=== PATIENT | male | born 1950 | race Caucasian/White ===

== ENCOUNTER 2020-06-23 06:57 | Outpatient (REF) | payer MEDICARE, SELFPAY ==
[2020-06-23 11:58] LABS: Anion Gap 12 (12-20); Blood Urea Nitrogen 16 mg/dL (9-16); Carbon Dioxide 27 mmol/L (22-29); Chloride 102 mmol/L (96-108); Estimated Glomerular Filt Rate 53; Potassium 3.9 mmol/l (3.3-5.1); Sodium 137 mmol/L (135-145)
[2020-06-23 12:57] LABS: Creatinine Urine 61.06 mg/dL; Protein/Creatinine Ratio, Ur 0.28 (<0.2); Total Protein Urine Random 17 mg/dL (<12)
== END 2020-06-23 06:58 | disposition home or self-care (01) ==
LOC: HO.HMGCLDS 06:57
PROVIDERS: PCP Internal Medicine; Visit Provider Internal Medicine Hypertension Specialist
DX: I12.9 Hypertensive chronic kidney disease with stage 1 through stage 4 chronic kidney disease, or unspecified chronic kidney disease (principal); N18.30 Chronic kidney disease, stage 3 unspecified
CPT/HCPCS: 36415; 80051; 82565; 84156; 84520

== ENCOUNTER 2020-08-11 10:40 | Outpatient (REF) | payer MEDICARE, SELFPAY ==
[2020-08-11 14:03] LABS: MANUAL DIFF FLAG NO
[2020-08-11 14:17] LABS: Basophils Absolute Auto 0.1 X10*3/uL (0.0-0.2); Basophils Percent Auto 1.1 % (0-2); Eosinophils Absolute Auto 0.3 X10*3/uL (0.0-0.4); Eosinophils Percent Auto 3.9 % (0-4); Hematocrit 39.8 % (42-52); Hemoglobin 13.2 g/dl (14.0-18.0); Imm Gran Abs Auto 0.02 X10*3/uL (0.00-0.03); Imm Gran Pct Auto 0.2 % (0.0-0.4); Lymphocytes Absolute Auto 1.5 X10*3/uL (1.2-4.9); Lymphocytes Percent Auto 18.8 % (20-40); Mean Corpuscular HGB Conc 33.2 g/dl (31.0-36.0); Mean Corpuscular Hemoglobin 31.1 pg (27.0-33.0); Mean Corpuscular Volume 93.6 fL (80-98); Monocytes Absolute Auto 0.8 X10*3/uL (0.1-1.2); Monocytes Percent Auto 9.2 % (2-11); Neutrophils Absolute Auto 5.5 X10*3/uL (2.0-8.3); Neutrophils Percent Auto 66.8 % (45-73); Platelet Count 212 X10*3/uL (160-400); Red Blood Count 4.25 X10*6/uL (4.60-5.80); Red Cell Distribution Width 13.2 % (11.0-16.0); White Blood Count 8.2 X10*3/uL (4.8-10.8)
[2020-08-11 14:54] LABS: Alanine Aminotransferase 33 U/L (0-40); Alkaline Phosphatase 60 U/L (39-117); Anion Gap 15 (12-20); Aspartate Amino Transferase 41 U/L (5-37); Blood Urea Nitrogen 16 mg/dL (9-16); Calcium 8.8 mg/dL (8.4-10.2); Carbon Dioxide 27 mmol/L (22-29); Chloride 102 mmol/L (96-108); Estimated Glomerular Filt Rate 44; Glucose Random 109 mg/dL (60-115); Potassium 4.9 mmol/l (3.3-5.1); Sodium 139 mmol/L (135-145)
[2020-08-11 15:01] LABS: Free T4 (Free Thyroxine) 1.18 ng/dL (0.71-1.85)
== END 2020-08-11 10:41 | disposition home or self-care (01) ==
LOC: HO.10HDL 10:40
PROVIDERS: Visit Provider Internal Medicine
DX: I12.9 Hypertensive chronic kidney disease with stage 1 through stage 4 chronic kidney disease, or unspecified chronic kidney disease (principal); N18.9 Chronic kidney disease, unspecified; E03.9 Hypothyroidism, unspecified
CPT/HCPCS: 36415; 80053; 84439; 84443; 85025

== ENCOUNTER 2021-03-14 06:03 | Outpatient (REF) | payer MEDICARE, SELFPAY ==
[2021-03-14 11:16] LABS: MANUAL DIFF FLAG NO
[2021-03-14 11:37] LABS: Basophils Absolute Auto 0.1 X10*3/uL (0.0-0.2); Basophils Percent Auto 0.8 % (0-2); Eosinophils Absolute Auto 0.3 X10*3/uL (0.0-0.4); Eosinophils Percent Auto 3.9 % (0-4); Hematocrit 38.7 % (42-52); Hemoglobin 12.9 g/dl (14.0-18.0); Imm Gran Abs Auto 0.03 X10*3/uL (0.00-0.03); Imm Gran Pct Auto 0.4 % (0.0-0.4); Lymphocytes Absolute Auto 1.6 X10*3/uL (1.2-4.9); Lymphocytes Percent Auto 22.7 % (20-40); Mean Corpuscular HGB Conc 33.3 g/dl (31.0-36.0); Mean Corpuscular Hemoglobin 31.7 pg (27.0-33.0); Mean Corpuscular Volume 95.1 fL (80-98); Mean Platelet Volume 10.7 fL (9.4-12.4); Monocytes Absolute Auto 0.8 X10*3/uL (0.1-1.2); Monocytes Percent Auto 11.2 % (2-11); Neutrophils Absolute Auto 4.4 X10*3/uL (2.0-8.3); Platelet Count 214 X10*3/uL (160-400); Red Blood Count 4.07 X10*6/uL (4.60-5.80); Red Cell Distribution Width 13.3 % (11.0-16.0); White Blood Count 7.1 X10*3/uL (4.8-10.8)
[2021-03-14 11:50] LABS: Alanine Aminotransferase 26 U/L (0-40); Albumin Level 4.1 g/dL (3.5-5.0); Alkaline Phosphatase 68 U/L (39-117); Anion Gap 13 (12-20); Aspartate Amino Transferase 41 U/L (5-37); Bilirubin Total 0.8 mg/dL (0.0-1.0); Blood Urea Nitrogen 11 mg/dL (9-16); Calcium 8.9 mg/dL (8.4-10.2); Carbon Dioxide 25 mmol/L (22-29); Chloride 103 mmol/L (96-108); Cholesterol 125 mg/dL; Estimated Glomerular Filt Rate 57; Glucose Fasting 90 mg/dL (60-99); HDL Cholesterol 48 mg/dL; Iron 85 mcg/dL (45-160); LDL Cholesterol Calculated 44 mg/dl; Percent Iron Saturation 28 % (15-50); Potassium 4.1 mmol/L (3.3-5.1); Sodium 137 mmol/L (135-145); Total Iron Binding Capacity 308 mcg/dL (228-428); Total Protein 6.9 g/dL (6.5-8.0); Triglycerides 168 mg/dL; Unsaturated Iron Binding 223 ug/dL
[2021-03-14 12:11] LABS: Free T4 (Free Thyroxine) 1.14 ng/dL (0.71-1.85); Thyroid Stimulating Hormone 5.95 uIU/mL (0.32-4.0)
== END 2021-03-14 06:04 | disposition home or self-care (01) ==
LOC: HO.HMGCLDS 06:03
PROVIDERS: PCP Internal Medicine; Visit Provider Internal Medicine
DX: D64.9 Anemia, unspecified (principal); I12.9 Hypertensive chronic kidney disease with stage 1 through stage 4 chronic kidney disease, or unspecified chronic kidney disease; N18.9 Chronic kidney disease, unspecified; E03.9 Hypothyroidism, unspecified; E78.00 Pure hypercholesterolemia, unspecified
CPT/HCPCS: 36415; 80053; 80061; 83540; 84439; 84443; 85025

== ENCOUNTER 2021-06-20 10:10 | Outpatient (REF) | payer MEDICARE, SELFPAY ==
[2021-06-20 11:34] LABS: MANUAL DIFF FLAG NO
[2021-06-20 11:41] LABS: Basophils Absolute Auto 0.1 X10*3/uL (0.0-0.2); Basophils Percent Auto 1.4 % (0-2); Eosinophils Absolute Auto 0.3 X10*3/uL (0.0-0.4); Eosinophils Percent Auto 3.4 % (0-4); Hematocrit 37.9 % (42-52); Hemoglobin 12.9 g/dl (14.0-18.0); Imm Gran Abs Auto 0.03 X10*3/uL (0.00-0.03); Imm Gran Pct Auto 0.4 % (0.0-0.4); Lymphocytes Absolute Auto 1.4 X10*3/uL (1.2-4.9); Lymphocytes Percent Auto 19.7 % (20-40); Mean Corpuscular Hemoglobin 31.6 pg (27.0-33.0); Mean Corpuscular Volume 92.9 fL (80-98); Mean Platelet Volume 10.4 fL (9.4-12.4); Monocytes Absolute Auto 0.6 X10*3/uL (0.1-1.2); Monocytes Percent Auto 7.8 % (2-11); Neutrophils Absolute Auto 4.9 X10*3/uL (2.0-8.3); Neutrophils Percent Auto 67.3 % (45-73); Platelet Count 197 X10*3/uL (160-400); Red Blood Count 4.08 X10*6/uL (4.60-5.80); Red Cell Distribution Width 13.1 % (11.0-16.0); White Blood Count 7.3 X10*3/uL (4.8-10.8)
[2021-06-20 12:07] LABS: Anion Gap 15 (12-20); Blood Urea Nitrogen 12 mg/dL (9-16); Calcium 8.7 mg/dL (8.4-10.2); Carbon Dioxide 23 mmol/L (22-29); Chloride 102 mmol/L (96-108); Estimated Glomerular Filt Rate 51; Glucose Random 113 mg/dL (60-115); Potassium 4.6 mmol/L (3.3-5.1); Sodium 135 mmol/L (135-145)
[2021-06-20 12:09] LABS: Anion Gap 14 (12-20); Blood Urea Nitrogen 11 mg/dL (9-16); Calcium 8.9 mg/dL (8.4-10.2); Carbon Dioxide 24 mmol/L (22-29); Chloride 101 mmol/L (96-108); Estimated Glomerular Filt Rate 48; Potassium 4.6 mmol/L (3.3-5.1); Sodium 134 mmol/L (135-145)
[2021-06-20 12:32] LABS: Free T4 (Free Thyroxine) 1.14 ng/dL (0.71-1.85); Thyroid Stimulating Hormone 4.55 uIU/mL (0.32-4.0)
[2021-06-20 14:03] LABS: Appearance Urine CLEAR; Color Urine YELLOW; Glucose Urine UA NEG (NEG); Leukocyte Esterase Urine NEG (NEG); Nitrite Urine NEG (NEG); Urine Blood NEG (NEG); Urine Ketones NEG (NEG); Urine Protein NEG (NEG-TRACE)
== END 2021-06-20 10:11 | disposition home or self-care (01) ==
LOC: HO.HMGCLDS 10:10
PROVIDERS: PCP Internal Medicine; Visit Provider Internal Medicine Hypertension Specialist
DX: I12.9 Hypertensive chronic kidney disease with stage 1 through stage 4 chronic kidney disease, or unspecified chronic kidney disease (principal); N18.30 Chronic kidney disease, stage 3 unspecified; E03.9 Hypothyroidism, unspecified
CPT/HCPCS: 36415; 80048; 80051; 81003; 82310; 82565; 84439; 84443; 84520; 85025

== ENCOUNTER 2021-11-21 06:02 | Outpatient (REF) | payer MEDICARE, SELFPAY ==
[2021-11-21 11:03] LABS: MANUAL DIFF FLAG NO
[2021-11-21 11:10] LABS: Basophils Absolute Auto 0.1 X10*3/uL (0.0-0.2); Basophils Percent Auto 1.2 % (0-2); Eosinophils Absolute Auto 0.3 X10*3/uL (0.0-0.4); Eosinophils Percent Auto 4.6 % (0-4); Imm Gran Abs Auto 0.03 X10*3/uL (0.00-0.03); Imm Gran Pct Auto 0.4 % (0.0-0.4); Lymphocytes Absolute Auto 1.9 X10*3/uL (1.2-4.9); Lymphocytes Percent Auto 26.2 % (20-40); Mean Corpuscular HGB Conc 33.3 g/dl (31.0-36.0); Mean Corpuscular Hemoglobin 31.4 pg (27.0-33.0); Mean Corpuscular Volume 94.2 fL (80.0-98.0); Mean Platelet Volume 10.5 fL (9.4-12.4); Monocytes Absolute Auto 0.7 X10*3/uL (0.1-1.2); Neutrophils Absolute Auto 4.2 x10*3/uL (2.0-8.3); Neutrophils Percent Auto 57.6 % (45-73); Platelet Count 196 X10*3/uL (160-400); Red Blood Count 4.14 X10*6/uL (4.60-5.80); Red Cell Distribution Width 13.3 % (11.0-16.0); White Blood Count 7.4 X10*3/uL (4.8-10.8)
[2021-11-21 11:28] LABS: Estimated Average Glucose 103 mg/dL; Hemoglobin A1C 116.9216 umol/L; Hemoglobin A1c % 5.2 %
[2021-11-21 11:46] LABS: Free T4 (Free Thyroxine) 1.12 ng/dL (0.71-1.85); Thyroid Stimulating Hormone 6.01 uIU/mL (0.32-4.0)
[2021-11-21 12:04] LABS: Alanine Aminotransferase 34 U/L (0-40); Albumin Level 3.9 g/dL (3.5-5.0); Alkaline Phosphatase 54 U/L (39-117); Anion Gap 16 (12-20); Aspartate Amino Transferase 50 U/L (5-37); Bilirubin Total 0.7 mg/dL (0.0-1.0); Blood Urea Nitrogen 16 mg/dL (9-16); Calcium 9.2 mg/dL (8.4-10.2); Carbon Dioxide 23 mmol/L (22-29); Chloride 103 mmol/L (96-108); Estimated Glomerular Filt Rate 50; Glucose Random 97 mg/dL (60-115); Potassium 3.9 mmol/L (3.3-5.1); Sodium 138 mmol/L (135-145)
[2021-11-21 12:14] LABS: Creatinine Urine 63.87 mg/dL; Microalbum/Creatinine Ratio Ur 75.1 ug/mg cr
== END 2021-11-21 06:03 | disposition home or self-care (01) ==
LOC: HO.HMGCLDS 06:02
PROVIDERS: Visit Provider Internal Medicine
DX: I12.9 Hypertensive chronic kidney disease with stage 1 through stage 4 chronic kidney disease, or unspecified chronic kidney disease (principal); N18.9 Chronic kidney disease, unspecified; E11.22 Type 2 diabetes mellitus with diabetic chronic kidney disease; E03.9 Hypothyroidism, unspecified
CPT/HCPCS: 36415; 80053; 82043; 83036; 84439; 84443; 85025

== ENCOUNTER 2022-03-12 12:25 | Outpatient (REF) | payer MEDICARE, SELFPAY ==
[2022-03-12 13:40] LABS: MANUAL DIFF FLAG NO
[2022-03-12 13:54] LABS: Basophils Absolute Auto 0.1 X10*3/uL (0.0-0.2); Basophils Percent Auto 1.4 % (0-2); Eosinophils Absolute Auto 0.3 X10*3/uL (0.0-0.4); Eosinophils Percent Auto 3.9 % (0-4); Hematocrit 39.3 % (42.0-52.0); Imm Gran Abs Auto 0.03 X10*3/uL (0.00-0.03); Imm Gran Pct Auto 0.4 % (0.0-0.4); Lymphocytes Absolute Auto 1.9 X10*3/uL (1.2-4.9); Lymphocytes Percent Auto 22.3 % (20-40); Mean Corpuscular HGB Conc 33.1 g/dl (31.0-36.0); Mean Corpuscular Volume 93.8 fL (80.0-98.0); Mean Platelet Volume 10.4 fL (9.4-12.4); Monocytes Absolute Auto 0.8 X10*3/uL (0.1-1.2); Neutrophils Absolute Auto 5.2 x10*3/uL (2.0-8.3); Platelet Count 219 X10*3/uL (160-400); Red Blood Count 4.19 X10*6/uL (4.60-5.80); Red Cell Distribution Width 13.3 % (11.0-16.0); White Blood Count 8.3 X10*3/uL (4.8-10.8)
[2022-03-12 14:16] LABS: Alanine Aminotransferase 31 U/L (0-40); Albumin Level 3.9 g/dL (3.5-5.0); Alkaline Phosphatase 54 U/L (39-117); Anion Gap 14 (12-20); Aspartate Amino Transferase 45 U/L (5-37); Bilirubin Total 0.7 mg/dL (0.0-1.0); Blood Urea Nitrogen 14 mg/dL (9-16); Calcium 9.2 mg/dL (8.4-10.2); Carbon Dioxide 25 mmol/L (22-29); Chloride 105 mmol/L (96-108); Estimated Glomerular Filt Rate 51; Glucose Random 118 mg/dL (60-115); Iron 118 mcg/dL (45-160); Percent Iron Saturation 35 % (15-50); Sodium 139 mmol/L (135-145); Total Iron Binding Capacity 337 mcg/dL (228-428); Total Protein 7.1 g/dL (6.5-8.0); Unsaturated Iron Binding 219 ug/dL
[2022-03-12 14:39] LABS: Free T4 (Free Thyroxine) 1.18 ng/dL (0.71-1.85); Thyroid Stimulating Hormone 5.23 uIU/mL (0.32-4.0)
== END 2022-03-12 12:26 | disposition home or self-care (01) ==
LOC: HO.HMGCLDS 12:25
PROVIDERS: PCP Internal Medicine; Visit Provider Internal Medicine
DX: I12.9 Hypertensive chronic kidney disease with stage 1 through stage 4 chronic kidney disease, or unspecified chronic kidney disease (principal); N18.9 Chronic kidney disease, unspecified; E03.9 Hypothyroidism, unspecified; D64.9 Anemia, unspecified
CPT/HCPCS: 36415; 80053; 83540; 84439; 84443; 85025

== ENCOUNTER 2022-06-21 06:53 | Outpatient (REF) | payer MEDICARE, SELFPAY ==
[2022-06-21 12:06] LABS: Basophils Absolute Auto 0.1 X10*3/uL (0.0-0.2); Basophils Percent Auto 1.7 % (0-2); Eosinophils Absolute Auto 0.4 X10*3/uL (0.0-0.4); Eosinophils Percent Auto 5.7 % (0-4); Hematocrit 39.4 % (42.0-52.0); Hemoglobin 13.6 g/dl (14.0-18.0); Imm Gran Abs Auto 0.02 X10*3/uL (0.00-0.03); Imm Gran Pct Auto 0.3 % (0.0-0.4); Lymphocytes Absolute Auto 1.8 X10*3/uL (1.2-4.9); Lymphocytes Percent Auto 26.1 % (20-40); MANUAL DIFF FLAG NO; Mean Corpuscular HGB Conc 34.5 g/dl (31.0-36.0); Mean Corpuscular Hemoglobin 32.5 pg (27.0-33.0); Mean Platelet Volume 10.9 fL (9.4-12.4); Monocytes Absolute Auto 0.7 X10*3/uL (0.1-1.2); Monocytes Percent Auto 9.5 % (2-11); Neutrophils Absolute Auto 3.9 x10*3/uL (2.0-8.3); Neutrophils Percent Auto 56.7 % (45-73); Platelet Count 213 X10*3/uL (160-400); Red Blood Count 4.19 X10*6/uL (4.60-5.80); Red Cell Distribution Width 13.3 % (11.0-16.0); White Blood Count 6.9 X10*3/uL (4.8-10.8)
[2022-06-21 12:37] LABS: Alanine Aminotransferase 30 U/L (0-40); Albumin Level 3.9 g/dL (3.5-5.0); Alkaline Phosphatase 70 U/L (39-117); Anion Gap 16 (12-20); Aspartate Amino Transferase 39 U/L (5-37); Bilirubin Total 0.6 mg/dL (0.0-1.0); Blood Urea Nitrogen 13 mg/dL (9-16); Carbon Dioxide 24 mmol/L (22-29); Chloride 103 mmol/L (96-108); Cholesterol 129 mg/dL; Estimated Glomerular Filt Rate 53; Glucose Fasting 97 mg/dL (60-99); HDL Cholesterol 44 mg/dL; LDL Cholesterol Calculated 56 mg/dl; Sodium 139 mmol/L (135-145); Total Protein 6.9 g/dL (6.5-8.0); Triglycerides 145 mg/dL
[2022-06-21 12:37] LABS: Creatinine Urine 115.98 mg/dL; Microalbum/Creatinine Ratio Ur 16.3 ug/mg cr
[2022-06-21 12:50] LABS: Free T4 (Free Thyroxine) 1.25 ng/dL (0.71-1.85); Prostate Specific Antigen Scr 0.24 ng/mL (<0.05-4.0); Thyroid Stimulating Hormone 6.42 uIU/mL (0.32-4.0)
[2022-06-21 12:51] LABS: Estimated Average Glucose 105 mg/dL; Hemoglobin A1c % 5.3 %
== END 2022-06-21 06:54 | disposition home or self-care (01) ==
LOC: HO.HMGCLDS 06:53
PROVIDERS: PCP Internal Medicine; Visit Provider Internal Medicine
DX: Z12.5 Encounter for screening for malignant neoplasm of prostate (principal); I42.9 Cardiomyopathy, unspecified; I12.9 Hypertensive chronic kidney disease with stage 1 through stage 4 chronic kidney disease, or unspecified chronic kidney disease; E11.22 Type 2 diabetes mellitus with diabetic chronic kidney disease; N18.9 Chronic kidney disease, unspecified; E03.9 Hypothyroidism, unspecified; E78.00 Pure hypercholesterolemia, unspecified
CPT/HCPCS: 36415; 80053; 80061; 82043; 83036; 84153; 84439; 84443; 85025

== ENCOUNTER 2022-06-27 11:50 | Outpatient (REF) | payer MEDICARE, SELFPAY ==
[2022-06-27 12:46] LABS: Influenza A PCR NEGATIVE (Negative); Influenza B PCR NEGATIVE (Negative); Resp Syncy Virus RNA Qual PCR NEGATIVE (Negative); SARS COV2 PCR INHOUSE NEGATIVE (Negative)
== END 2022-06-27 11:51 | disposition home or self-care (01) ==
LOC: HO.LNP 11:50
PROVIDERS: Visit Provider Internal Medicine
DX: R05.9 Cough, unspecified (principal); Z20.822 Contact with and (suspected) exposure to COVID-19
CPT/HCPCS: 0241U

== ENCOUNTER 2022-11-25 06:02 | Outpatient (REF) | payer MEDICARE, SELFPAY ==
[2022-11-25 11:35] LABS: MANUAL DIFF FLAG NO
[2022-11-25 11:50] LABS: Appearance Urine Clear; Color Urine Yellow; Glucose Urine UA Negative (Negative); Leukocyte Esterase Urine Negative (Negative); Nitrite Urine Negative (Negative); PH 5.5 (5.0-9.0); Specific Gravity - Urine <= 1.005 (1.005-1.025); Urine Blood Negative (Negative); Urine Ketones Negative (Negative); Urine Protein Negative (Neg-Trace)
[2022-11-25 11:58] LABS: Basophils Absolute Auto 0.1 X10*3/uL (0.0-0.2); Basophils Percent Auto 1.6 % (0-2); Eosinophils Absolute Auto 0.4 X10*3/uL (0.0-0.4); Eosinophils Percent Auto 5.8 % (0-4); Hematocrit 39.3 % (42.0-52.0); Hemoglobin 13.2 g/dl (14.0-18.0); Imm Gran Abs Auto 0.03 X10*3/uL (0.00-0.03); Imm Gran Pct Auto 0.4 % (0.0-0.4); Lymphocytes Absolute Auto 1.9 X10*3/uL (1.2-4.9); Lymphocytes Percent Auto 26.8 % (20-40); Mean Corpuscular HGB Conc 33.6 g/dl (31.0-36.0); Mean Corpuscular Hemoglobin 31.4 pg (27.0-33.0); Mean Corpuscular Volume 93.6 fL (80.0-98.0); Mean Platelet Volume 10.7 fL (9.4-12.4); Monocytes Absolute Auto 0.6 X10*3/uL (0.1-1.2); Monocytes Percent Auto 8.9 % (2-11); Neutrophils Percent Auto 56.5 % (45-73); Platelet Count 203 X10*3/uL (160-400); Red Cell Distribution Width 13.5 % (11.0-16.0); White Blood Count 7.1 X10*3/uL (4.8-10.8)
[2022-11-25 12:05] LABS: Estimated Average Glucose 108 mg/dL; Hemoglobin A1c % 5.4 %
[2022-11-25 12:19] LABS: Alanine Aminotransferase 27 U/L (0-40); Albumin Level 3.8 g/dL (3.5-5.0); Alkaline Phosphatase 65 U/L (39-117); Anion Gap 13 (12-20); Aspartate Amino Transferase 46 U/L (5-37); Bilirubin Total 0.9 mg/dL (0.0-1.0); Blood Urea Nitrogen 11 mg/dL (9-16); Calcium 8.8 mg/dL (8.4-10.2); Carbon Dioxide 26 mmol/L (22-29); Chloride 104 mmol/L (96-108); Cholesterol 140 mg/dL; Estimated Glomerular Filt Rate 56; Glucose Fasting 99 mg/dL (60-99); HDL Cholesterol 48 mg/dL; LDL Cholesterol Calculated 54 mg/dl; Sodium 139 mmol/L (135-145); Total Protein 6.8 g/dL (6.5-8.0); Triglycerides 190 mg/dL
[2022-11-25 12:24] LABS: Creatinine Urine 98.96 mg/dL; Microalbum/Creatinine Ratio Ur 19.1 ug/mg cr
[2022-11-25 12:38] LABS: Free T4 (Free Thyroxine) 1.14 ng/dL (0.71-1.85); Prostate Specific Antigen 0.36 ng/mL (<0.05-4.0); Thyroid Stimulating Hormone 5.99 uIU/mL (0.32-4.0)
== END 2022-11-25 06:03 | disposition home or self-care (01) ==
LOC: HO.HMGCLDS 06:02
PROVIDERS: PCP Internal Medicine; Visit Provider Internal Medicine
DX: Z12.5 Encounter for screening for malignant neoplasm of prostate (principal); E03.9 Hypothyroidism, unspecified; E78.00 Pure hypercholesterolemia, unspecified; N40.0 Benign prostatic hyperplasia without lower urinary tract symptoms; I12.9 Hypertensive chronic kidney disease with stage 1 through stage 4 chronic kidney disease, or unspecified chronic kidney disease; N18.9 Chronic kidney disease, unspecified; R73.03 Prediabetes
CPT/HCPCS: 36415; 80053; 80061; 81003; 82043; 83036; 84153; 84439; 84443; 85025

== ENCOUNTER 2023-03-19 08:43 | Outpatient (REF) | payer MEDICARE, SELFPAY ==
[2023-03-19 11:16] LABS: MANUAL DIFF FLAG NO
[2023-03-19 11:25] LABS: Basophils Absolute Auto 0.1 X10*3/uL (0.0-0.2); Basophils Percent Auto 1.4 % (0-2); Eosinophils Absolute Auto 0.4 X10*3/uL (0.0-0.4); Eosinophils Percent Auto 5.1 % (0-4); Hematocrit 39.7 % (42.0-52.0); Hemoglobin 13.3 g/dl (14.0-18.0); Imm Gran Abs Auto 0.03 X10*3/uL (0.00-0.03); Imm Gran Pct Auto 0.4 % (0.0-0.4); Lymphocytes Absolute Auto 1.6 X10*3/uL (1.2-4.9); Lymphocytes Percent Auto 20.7 % (20-40); Mean Corpuscular HGB Conc 33.5 g/dl (31.0-36.0); Mean Corpuscular Hemoglobin 31.7 pg (27.0-33.0); Mean Corpuscular Volume 94.7 fL (80.0-98.0); Mean Platelet Volume 10.5 fL (9.4-12.4); Monocytes Absolute Auto 0.7 X10*3/uL (0.1-1.2); Monocytes Percent Auto 9.4 % (2-11); Neutrophils Absolute Auto 4.8 x10*3/uL (2.0-8.3); Platelet Count 185 X10*3/uL (160-400); Red Blood Count 4.19 X10*6/uL (4.60-5.80); Red Cell Distribution Width 13.4 % (11.0-16.0); White Blood Count 7.7 X10*3/uL (4.8-10.8)
[2023-03-19 11:58] LABS: Alanine Aminotransferase 33 U/L (0-40); Albumin Level 3.8 g/dL (3.5-5.0); Alkaline Phosphatase 61 U/L (39-117); Anion Gap 10 (12-20); Aspartate Amino Transferase 54 U/L (5-37); Bilirubin Total 1.1 mg/dL (0.0-1.0); Blood Urea Nitrogen 14 mg/dL (9-16); Calcium 9.4 mg/dL (8.4-10.2); Carbon Dioxide 26 mmol/L (22-29); Chloride 102 mmol/L (96-108); Estimated Glomerular Filt Rate 58; Glucose Random 104 mg/dL (60-115); Potassium 4.6 mmol/L (3.3-5.1); Sodium 133 mmol/L (135-145); Total Protein 7.3 g/dL (6.5-8.0)
[2023-03-19 12:04] LABS: Free T4 (Free Thyroxine) 1.22 ng/dL (0.71-1.85); Thyroid Stimulating Hormone 5.46 uIU/mL (0.32-4.0)
== END 2023-03-19 08:44 | disposition home or self-care (01) ==
LOC: HO.HMGCLDS 08:43
PROVIDERS: PCP Internal Medicine; Visit Provider Internal Medicine
DX: I12.9 Hypertensive chronic kidney disease with stage 1 through stage 4 chronic kidney disease, or unspecified chronic kidney disease (principal); N18.9 Chronic kidney disease, unspecified; E03.9 Hypothyroidism, unspecified
CPT/HCPCS: 36415; 80053; 84439; 84443; 85025

== ENCOUNTER 2023-07-01 10:03 | Outpatient (REF) | payer MEDICARE, SELFPAY ==
[2023-07-01 13:46] LABS: Anion Gap 15 (12-20); Blood Urea Nitrogen 14 mg/dL (9-16); Carbon Dioxide 26 mmol/L (22-29); Chloride 102 mmol/L (96-108); Estimated Glomerular Filt Rate > 60; Glucose Random 120 mg/dL (60-115); Potassium 4.3 mmol/L (3.3-5.1); Sodium 139 mmol/L (135-145)
== END 2023-07-01 10:04 | disposition home or self-care (01) ==
LOC: HO.HMGCLDS 10:03
PROVIDERS: PCP Internal Medicine; Visit Provider Internal Medicine Hypertension Specialist
DX: N18.30 Chronic kidney disease, stage 3 unspecified (principal)
CPT/HCPCS: 36415; 80048

== ENCOUNTER 2023-12-02 07:11 | Outpatient (REF) | payer MEDICARE, SELFPAY ==
[2023-12-02 11:07] LABS: MANUAL DIFF FLAG NO
[2023-12-02 11:37] LABS: Basophils Absolute Auto 0.1 X10*3/uL (0.0-0.2); Basophils Percent Auto 1.3 % (0-2); Eosinophils Absolute Auto 0.5 X10*3/uL (0.0-0.4); Eosinophils Percent Auto 6.7 % (0-4); Hematocrit 40.5 % (42.0-52.0); Hemoglobin 13.5 g/dl (14.0-18.0); Imm Gran Abs Auto 0.03 X10*3/uL (0.00-0.03); Imm Gran Pct Auto 0.4 % (0.0-0.4); Lymphocytes Absolute Auto 1.9 X10*3/uL (1.2-4.9); Mean Corpuscular HGB Conc 33.3 g/dl (31.0-36.0); Mean Corpuscular Hemoglobin 31.6 pg (27.0-33.0); Mean Corpuscular Volume 94.8 fL (80.0-98.0); Mean Platelet Volume 10.9 fL (9.4-12.4); Monocytes Absolute Auto 0.7 X10*3/uL (0.1-1.2); Monocytes Percent Auto 9.1 % (2-11); Neutrophils Absolute Auto 4.2 x10*3/uL (2.0-8.3); Neutrophils Percent Auto 56.5 % (45-73); Platelet Count 218 X10*3/uL (160-400); Red Blood Count 4.27 X10*6/uL (4.60-5.80); Red Cell Distribution Width 13.9 % (11.0-16.0); White Blood Count 7.5 X10*3/uL (4.8-10.8)
[2023-12-02 12:04] LABS: Prostate Specific Antigen 0.29 ng/mL (<0.05-4.0)
[2023-12-02 12:08] LABS: Alanine Aminotransferase 25 U/L (0-40); Albumin Level 3.8 g/dL (3.5-5.0); Alkaline Phosphatase 65 U/L (39-117); Anion Gap 11 (12-20); Aspartate Amino Transferase 37 U/L (5-37); Bilirubin Total 0.7 mg/dL (0.0-1.0); Blood Urea Nitrogen 15 mg/dL (9-16); Calcium 9.3 mg/dL (8.4-10.2); Carbon Dioxide 28 mmol/L (22-29); Chloride 105 mmol/L (96-108); Cholesterol 131 mg/dL (<200); Estimated Glomerular Filt Rate > 60; Glucose Fasting 97 mg/dL (60-99); HDL Cholesterol 55 mg/dL (>40); LDL Cholesterol Calculated 59 mg/dL (<100); Potassium 4.2 mmol/L (3.3-5.1); Sodium 140 mmol/L (135-145); Thyroid Stimulating Hormone 5.43 uIU/mL (0.32-4.0); Total Protein 7.2 g/dL (6.5-8.0); Triglycerides 89 mg/dL (<150)
== END 2023-12-02 07:12 | disposition home or self-care (01) ==
LOC: HO.HMGCLDS 07:11
PROVIDERS: PCP Internal Medicine; Visit Provider Internal Medicine
DX: I10 Essential (primary) hypertension (principal); E78.00 Pure hypercholesterolemia, unspecified; R73.03 Prediabetes; Z12.5 Encounter for screening for malignant neoplasm of prostate
CPT/HCPCS: 36415; 80053; 80061; 84153; 84439; 84443; 85025

== ENCOUNTER → 2024-03-05 12:44 | Outpatient (REF) | payer MEDICARE, SELFPAY ==
--- NOTE | 2024-03-05 12:48 | CA_ITS ---
Transthoracic Echocardiogram Patient (Last, First, Middle): Carl Godwin, Gender: Male Date of : 1950 Age: 73 Procedure Date: 03/05/2024 Procedure Type: Transthoracic Echocardiogram Location: OP Height: 170.18 cm Weight: 130.64 kg BSA: 2.36 m2 Heart Rate: bpm BP: 124 / 64 mmHg Medical Physicist: TO Referring MD: Ricco Salazar MD Symptoms: FAM HX HD AND DIS OF CIRC SYSTEM Z82,49, HX CMP, ASSES FUNCTION Study Quality: Technically Difficult/contrast ECG Rhythm: Sinus Conclusions: - Moderately increased left ventricular cavity size. - The left ventricular systolic function is mildly decreased. The calculated ejection fraction is 48% by biplane method. - Evidence suggests grade III (severe) diastolic dysfunction. - No obvious valvular pathology seen on this study. Findings Procedure Information Contrast agent, definity, is being given per protocol without apparent complications. The study quality is limited by the patients inability to tolerate the test and patients body habitus. Left Ventricle Moderately increased left ventricular cavity size. There is mildly increased left ventricular wall thickness. The left ventricular systolic function is mildly decreased. The calculated ejection fraction is 48% by biplane method. There is mild global hypokinesis. Evidence suggests grade III (severe) diastolic dysfunction. Right Ventricle Normal right ventricular cavity size and systolic function. Atria The left atrium is moderately dilated. Aortic Valve The aortic valve was not well visualized. There is no aortic valve stenosis. There is no aortic valve regurgitation. Mitral Valve The mitral valve appears normal. There is trace mitral valve regurgitation. There is no mitral valve stenosis. Pulmonic Valve The pulmonic valve is likely normal. Tricuspid Valve There is no tricuspid valve regurgitation. Tricuspid regurgitation envelope is inadequate for calculation of right ventricular systolic pressure. Great Vessels The asc aorta is normal in size. Venous The inferior vena cava was not well visualized. Pericardium/Pleural There is a trivial pericardial effusion. Prior Study Comparison Changes noted compared to prior study dated: 10/21/2008. LVEF slightly lower; see comments on diastolic dysfunction. Recommendations, Care & Conclusions No obvious valvular pathology seen on this study. Measurements 2D Linear Measurements IVSd: 1.22 0.6-0.9/0.6-1.0 cm LVIDd: 6.16 3.9-5.3/4.2-5.9 cm LVIDd Index: 2.61 2.4-3.2/2.2-3.1 cm/m2 LVIDs: 4.80 2.0-3.6 cm LVPWd: 1.06 0.7-1.1 cm LV Mass: 382.17 67-162/88-224 g LV Mass Index: 161.93 43-95/49-115 g/m2 LVOT Diam: 2.50 3.0+(-)1.3 cm 2D Systolic Function EF 4C: 45.30 >55% EF 2C: 47.60 >55% EF BiP: 47.50 >55% Mitral Valve MV Pk E: 1.20 MV PK A: 0.41 MV Decel Time: 130.00 E/A: 2.90 E'Lateral: 6.42 E'Medial: 5.33 E/E' Med: 22.50 E/E' Lat: 18.70 PHT: 38.00 MVA PHT: 5.79 Decel [place]: 9.18 Aortic Valve AoV Pk Watson: 0.98 AoV Mn Watson: 0.72 AoV VTI: 0.23 AoV Pk Grad: 4.00 Aov Mn Grad: 2.00 MALATHI Cont.VTI: 3.79 LVOT LVOT Pk Watson: 0.63 LVOT Mn Watson: 0.43 LVOT VTI: 0.18 LVOT Pk Grad: 2.00 LVOT Mn Grad: 1.00 LVOT Diam: 2.50 LVOT Area: 4.91 Diastolic Function MV Pk E: 1.20 MV Pk A: 0.41 E/A: 2.90 E'Medial: 5.33 E/E' Med: 22.50 E' Laterial: 6.42 E/E' Lat: 18.70 Right Ventricle TAPSE (mm): 28.10 TVS' Watson: 11.90 Great Vessels Aorta Sinus of Valsalva: 3.70 2.0-3.[address] [place]: 3.05 1.7-3.4 cm Ao Asc: 3.80 2.1-3.4 cm Updated in Other Vendor System with Status of Final Baltazar Rogers MD electronically signed on 03/06/2024 12:10:05 PM with status of Final
== END ==
LOC: HO.CARD 12:44
PROVIDERS: PCP Internal Medicine; Visit Provider Internal Medicine
DX: Z82.49 Family history of ischemic heart disease and other diseases of the circulatory system (principal)
CPT/HCPCS: 93306; Q9957

== ENCOUNTER → 2024-03-05 12:48 | Outpatient (BNV) | payer MEDICARE, SELFPAY | PROVIDERS: PCP Internal Medicine; Visit Provider Internal Medicine | DX: I34.0 Nonrheumatic mitral (valve) insufficiency (principal); Z82.49 Family history of ischemic heart disease and other diseases of the circulatory system | CPT/HCPCS: 93306 ==

== ENCOUNTER 2024-05-31 10:15 | Outpatient (REF) | payer MEDICARE, SELFPAY ==
[2024-05-31 10:45] LABS: MANUAL DIFF FLAG NO
[2024-05-31 10:48] LABS: Basophils Absolute Auto 0.1 X10*3/uL (0.0-0.2); Basophils Percent Auto 1.1 % (0-2); Eosinophils Absolute Auto 0.8 X10*3/uL (0.0-0.4); Eosinophils Percent Auto 7.5 % (0-4); Hematocrit 39.2 % (42.0-52.0); Hemoglobin 13.3 g/dl (14.0-18.0); Imm Gran Abs Auto 0.03 X10*3/uL (0.00-0.03); Imm Gran Pct Auto 0.3 % (0.0-0.4); Lymphocytes Absolute Auto 1.6 X10*3/uL (1.2-4.9); Lymphocytes Percent Auto 16.1 % (20-40); Mean Corpuscular HGB Conc 33.9 g/dl (31.0-36.0); Mean Corpuscular Hemoglobin 31.4 pg (27.0-33.0); Mean Corpuscular Volume 92.7 fL (80.0-98.0); Monocytes Absolute Auto 0.9 X10*3/uL (0.1-1.2); Monocytes Percent Auto 9.3 % (2-11); Neutrophils Absolute Auto 6.6 x10*3/uL (2.0-8.3); Neutrophils Percent Auto 65.7 % (45-73); Platelet Count 203 X10*3/uL (160-400); Red Blood Count 4.23 X10*6/uL (4.60-5.80); Red Cell Distribution Width 13.7 % (11.0-16.0)
[2024-05-31 11:22] LABS: Alanine Aminotransferase 18 U/L (0-40); Albumin Level 3.7 g/dL (3.5-5.0); Alkaline Phosphatase 65 U/L (39-117); Anion Gap 14 (12-20); Aspartate Amino Transferase 24 U/L (5-37); Bilirubin Total 0.7 mg/dL (0.0-1.0); Blood Urea Nitrogen 26 mg/dL (9-16); Calcium 9.4 mg/dL (8.4-10.2); Carbon Dioxide 27 mmol/L (22-29); Chloride 105 mmol/L (96-108); Estimated Glomerular Filt Rate 42; Free T4 (Free Thyroxine) 0.96 ng/dL (0.71-1.85); Glucose Random 132 mg/dL (60-115); Potassium 4.5 mmol/L (3.3-5.1); Sodium 141 mmol/L (135-145); Total Protein 6.9 g/dL (6.5-8.0)
== END 2024-05-31 10:16 | disposition home or self-care (01) ==
LOC: HO.10HDL 10:15
PROVIDERS: Visit Provider Internal Medicine
DX: R60.0 Localized edema (principal); R21 Rash and other nonspecific skin eruption; E03.9 Hypothyroidism, unspecified; I10 Essential (primary) hypertension
CPT/HCPCS: 36415; 80053; 84439; 84443; 85025; 86140

== ENCOUNTER 2024-08-04 10:48 | Outpatient (AMB) | payer MEDICARE, SELFPAY ==
--- NOTE | 2024-08-04 10:54 | MHC.OFFVIS ---
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 On review of records, it seems that he has seen Dr. Burk long time ago but has not seen anybody else recently. In his med list, there is amiodarone but he is not entirely sure why. It seems he has been taking for a long time but reason is not known. An echocardiogram from 2003 shows an LVEF of 10-15% but subsequent echocardiogram had shown improvement. Around that time, it seems he also had congestive heart failure. More recently, no new symptoms and he is just about the same as before. He has chronic leg swelling which is unchanged. He states he does not have any breathing issues or chest pains within limits of his activity. Not documented to have any coronary disease. He is morbidly obese. Hypertensive on medications. [facility] Medical History (Updated 08/04/24 @ 11:39 by Baltazar Rogers MD) Chronic kidney disease Chronic diastolic (congestive) heart failure Morbid obesity Essential hypertension Family History (Updated 08/04/24 @ 11:02 by Cate Hankins CMA) Father Parkinson disease Mother HTN (hypertension) Asthma Social History (Updated 08/04/24 @ 11:02 by Cate Hankins CMA) Alcohol intake: current Alcohol intake frequency: holidays/special occasions only Patient Tobacco Use Status: Former Tobacco user Review of Systems Const Denies chills, Denies daytime sleepiness, Denies fatigue, Denies fever(s), Denies poor appetite, Denies snoring, Denies stops breathing during sleep, Denies weakness, Denies weight gain and Denies weight loss Eyes Denies loss of vision ENT Denies dizziness and Denies hearing loss Card Denies chest pain, Denies irregular heart rhythm, Denies claudication, Denies leg edema, Denies lightheadedness, Denies palpitations, Denies dyspnea on exertion and Denies orthopnea Resp Denies cough, Denies excessive phlegm production, Denies dyspnea on exertion, Denies snoring and Denies wheezing GI Denies abdominal pain, Denies hematochezia, Denies change in bowel habits, Denies nausea and Denies vomiting Denies dysuria and Denies urinary frequency Musc Denies arthralgias, Denies muscle weakness, Denies numbness and Denies other Skin/Breast Denies nail changes and Denies rash Neuro Denies Abnormal speech present, Denies dizziness, Denies loss of vision, Denies memory loss, Denies numbness and Denies weakness Psych Denies depression and Denies memory loss Endo Denies fatigue and Denies palpitations Manish/Lymph Denies easy bruising Aller/Immun Denies wheezing Physical Exam Vital Signs: Last Vital Signs Pulse 74 08/04/24 10:57 BP 114/50 L 08/04/24 10:57 BMI result Body Mass Index 47.1 Const General: comfortable and no acute distress Orientation/consciousness: patient oriented x3 HEENT Other: Unremarkable Head: Yes normal to inspection Neck Neck: Yes normal visual inspection Chest Chest palpation & inspection: normal inspection of the chest Resp Auscultation: clear to auscultation bilaterally Cardio Palpation: normal PMI Heart sounds: S1 normal heart sound present, S2 normal heart sound present, no gallops, no murmurs and no rubs GI Palpation (GI): Soft to palpation Back/Spine/Pelvis Other: unremarkable Skin General skin exam: no rashes or lesions noted Neuro General: patient oriented x3 Speech: No Abnormal speech present Extrem Other: 2-3+ edema bilaterally with chronic changes as well as some discharge. Psych Mental Status: mental status grossly normal Office Procedures EKG Details: EKG with underlying sinus rhythm at 74/Min; NE prolongation to 164 millisecond; low-voltage complexes; normal corrected QT; no significant ST-T changes. [id number], Complete Assessment & Plan Assessment & Plan (1) Chronic diastolic (congestive) heart failure: Code(s): I50.32 - Chronic diastolic (congestive) heart failure Category: Medical (2) Morbid obesity: Code(s): E66.01 - Morbid (severe) obesity due to excess calories Category: Medical (3) Essential hypertension: Code(s): I10 - Essential (primary) hypertension Category: Medical (4) Chronic kidney disease: Code(s): N18.9 - Chronic kidney disease, unspecified Category: Medical Plan Available data reviewed. Echocardiogram from 2004 showed LVEF 10-15%. In the most recent study, LVEF is 48% with severe diastolic dysfunction. For ischemic workup, he underwent myocardial perfusion imaging study around the time of diagnosis of the cardiomyopathy in 2003. That showed no ischemic findings. Overall, morbid obesity, chronic heart failure with recovered ejection fraction but currently with advanced diastolic dysfunction, hypertension, chronic kidney disease. His leg swelling is probably from combination obesity as well as some congestive heart failure. We can go up on the Lasix dose from 20 mg to 40 mg daily. Can check BMP in a few weeks' time. We can also add Farxiga if affordable. Other medications include carvedilol/losartan/nifedipine ER no changes with that. With regard to Amiodarone, patient does not know why he is taking it. We will stop that and discussed with patient. With regard to CKD, was seeing Nephrology in the past but lost for follow-up. Referral made. Orders: Orders Basic Metabolic Panel Today I50.9 - Heart failure, unspecified Referrals Nephrology Referral N18.9 - Chronic kidney disease, unspecified Medications: New dapagliflozin propanediol (Farxiga) 10 mg PO DAILY 90 tabs 3RF Coding Level of Care Code New Pt Level 4 (46524) Diagnoses Chronic diastolic (congestive) heart failure I50.32 Morbid obesity E66.01 Essential hypertension I10 Chronic kidney disease N18.9 CPT Codes EKG - CPT: 91584-[id number], Complete ([id number])
[2024-08-04 10:57] VITALS: BP 114/50; PULSE 74; BMI 47.1
== END 2024-08-04 11:34 | disposition home or self-care (01) ==
PROVIDERS: PCP Internal Medicine; Visit Provider Internal Medicine
DX: I13.0 Hypertensive heart and chronic kidney disease with heart failure and stage 1 through stage 4 chronic kidney disease, or unspecified chronic kidney disease (principal); I50.32 Chronic diastolic (congestive) heart failure; N18.9 Chronic kidney disease, unspecified; E66.01 Morbid (severe) obesity due to excess calories; Z68.42 Body mass index [BMI] 45.0-49.9, adult; I44.0 Atrioventricular block, first degree
CPT/HCPCS: 93010; 99214

== ENCOUNTER → 2024-08-04 10:48 | Outpatient (BNVA) | payer MEDICARE, SELFPAY | PROVIDERS: PCP Internal Medicine; Visit Provider Internal Medicine | DX: I44.0 Atrioventricular block, first degree (principal); I42.9 Cardiomyopathy, unspecified; I13.0 Hypertensive heart and chronic kidney disease with heart failure and stage 1 through stage 4 chronic kidney disease, or unspecified chronic kidney disease; I50.32 Chronic diastolic (congestive) heart failure; N18.9 Chronic kidney disease, unspecified; M79.89 Other specified soft tissue disorders; E66.01 Morbid (severe) obesity due to excess calories; Z87.891 Personal history of nicotine dependence; Z68.42 Body mass index [BMI] 45.0-49.9, adult | CPT/HCPCS: 93005; 99212 ==

== ENCOUNTER 2024-08-18 08:03 | Inpatient (IN) | payer MEDICARE, SELFPAY ==
[2024-08-18] VITALS (14 sets, daily range): BP systolic 79–152; BP diastolic 22–72; PULSE 68–96; RESP 16–26; TEMP 36.1–36.7; O2SAT 95–98; BMI 46.4
--- NOTE | 2024-08-18 | ECG_ITS ---
Test Reason : ICU EVAL Blood Pressure : / mmHG Vent. Rate : 072 BPM Atrial Rate : 072 BPM P-R Int : 204 ms QRS Dur : 100 ms QT Int : 416 ms P-R-T Axes : 055 -39 027 degrees QTc Int : 455 ms Normal sinus rhythm Left axis deviation Septal infarct , age undetermined Abnormal ECG When compared with ECG of 26-SEP-2004 08:11, MT interval has decreased Septal infarct is now Present Referred By: Ann Haas Electronically Signed By:KRISTINA VARGAS
--- NOTE | ~2024-08-18 | US_ITS ---
EXAMINATION: US TRIPLEX LOWER EXTREMITY, BILATERAL CLINICAL INFORMATION: Bilateral lower extremity swelling left greater than right. Rule out DVT. COMPARISON: None available. TECHNIQUE: Color-flow triplex imaging with spectral analysis and compression Doppler were performed on the bilateral lower extremities. FINDINGS: Per technologist note, study somewhat limited by bilateral lower extremity edema and wounds. Respiratory variation, normal compression and augmented flow are noted throughout the bilateral lower extremities. The visualized common femoral vein, superficial femoral vein, profunda femoral vein, popliteal vein and midcalf peroneal and posterior tibial venous segments show no evidence of deep venous thrombosis bilaterally. There is no Wade's cyst. US/US venous duplex LE BI IMPRESSION: No evidence of deep venous thrombosis involving the bilateral lower extremities. Electronically signed by: Jagdish Guevara MD 08/18/2024 11:52 AM [facility]
--- NOTE | ~2024-08-18 | XR_ITS ---
EXAMINATION: XR CHEST CLINICAL INFORMATION: Please assess any infectious process. COMPARISON: None available. TECHNIQUE: Frontal view of the chest was obtained. FINDINGS: Hazy retrocardiac opacity which could represent atelectasis, early infiltrates, or a trace onset of pleural effusion. No right-sided airspace consolidation or effusion. No pneumothorax. Unremarkable cardiomediastinal silhouette. XR/XR chest 1V IMPRESSION: Hazy retrocardiac opacity which could represent atelectasis, early infiltrates, or a trace onset of pleural effusion. Electronically signed by: Yvon Munroe MD 08/19/2024 08:32 AM [facility] [place]
--- NOTE | ~2024-08-18 | US_ITS ---
EXAMINATION: US RETROPERITONEAL LIMITED (RENAL ONLY) CLINICAL INFORMATION: Acute kidney injury. COMPARISON: Report from a CT abdomen/pelvis dated 04/19/2011. TECHNIQUE: Grayscale and Doppler images of the kidneys were obtained. FINDINGS: RIGHT KIDNEY: 13.1 x 5.8 x 5.2 cm (SAG x AP x TRV). The kidney is normal in size, contour, and echogenicity. Renal cortical thickness is normal. No focal parenchymal lesions. Multiple right-sided renal stones measuring up to 2.1 cm, 1.2 cm, 0.9 cm, and 0.6 cm. No hydronephrosis. LEFT KIDNEY: Not visualized due to overlying bowel gas. US/US renal BI IMPRESSION: 1. Multiple right-sided renal stones measuring up to 2.1 cm. No right-sided hydronephrosis. 2. Left kidney not visualized due to overlying bowel gas. Electronically signed by: Yvon Munroe MD 08/19/2024 08:32 AM [facility]
--- NOTE | 2024-08-18 08:34 | PC.NURSE ---
Pt. changed into hospital gown but refusing to removed pants. States he is not wearing underwear
--- NOTE | 2024-08-18 09:11 | PC.NURSE ---
Family now at bedside. stating that pt.'s leg wounds have been present since the spring.
[2024-08-18 09:16] LABS: Basophils Absolute Auto 0.1 X10*3/uL (0.0-0.2); Basophils Percent Auto 0.6 % (0-2); Eosinophils Absolute Auto 0.6 X10*3/uL (0.0-0.4); Eosinophils Percent Auto 5.1 % (0-4); Hematocrit 32.6 % (42.0-52.0); Hemoglobin 11.4 g/dl (14.0-18.0); Imm Gran Abs Auto 0.09 X10*3/uL (0.00-0.03); Imm Gran Pct Auto 0.8 % (0.0-0.4); Lymphocytes Absolute Auto 0.8 X10*3/uL (1.2-4.9); Lymphocytes Percent Auto 6.5 % (20-40); MANUAL DIFF FLAG NO; Mean Corpuscular Hemoglobin 31.5 pg (27.0-33.0); Mean Corpuscular Volume 90.1 fL (80.0-98.0); Mean Platelet Volume 9.5 fL (9.4-12.4); Monocytes Absolute Auto 1.1 X10*3/uL (0.1-1.2); Monocytes Percent Auto 9.5 % (2-11); Neutrophils Percent Auto 77.5 % (45-73); Platelet Count 247 X10*3/uL (160-400); Red Blood Count 3.62 X10*6/uL (4.60-5.80); Red Cell Distribution Width 13.7 % (11.0-16.0); White Blood Count 11.6 X10*3/uL (4.8-10.8)
--- NOTE | 2024-08-18 09:16 | ED_ITS ---
HPI - General Adult General Chief complaint: Wound/Laceration Stated complaint: FALL,SILVINA LEG INF WEEPING/BLEEDING PER EMS Time Seen by Provider: 08/18/24 09:13 Source: patient Limitations: no limitations History of Present Illness ED Provider: Dr. Francisco Ford HPI narrative: 74-year-old male with a history of chronic kidney disease, hypertension, morbid obesity, severe diastolic dysfunction with an EF of 48% who presents emergency department for evaluation of I difficulty walking, chronic weeping leg wounds and fall last night. Patient states he has noticed swelling, redness and weeping of his lower extremities since December of 2023. Last night at around 19:00 hours he was walking in his living room when he tripped on a blanket and fell into the sofa. He denies any significant injury from the fall. He states however he has had increased difficulty walking over last 2 weeks which she attributes to swelling in his lower extremities. He denied chest pain, shortness of breath, nausea, vomiting or diarrhea. Patient has been taking Lasix 20 mg once a day since 07/25/2024-this was started by Dr. Rogers. Patient was seen by Dr. Vilchis on 08/04/2024 or lower extremity edema/swelling. He felt that the etiology for his lower extremity swelling was a combination of his obesity and his congestive heart failure. Patient was started on Lasix 20 mg daily. Patient states that he has had increased urinary frequency but he was not restricted the amount of fluid that he has been drinking. Related Data Home Medications ?Medication ?Instructions ?Recorded ?Confirmed aspirin 81 mg tablet,delayed 81 mg PO DAILY 08/04/24 08/04/24 release (Adult Low Dose Aspirin) carvedilol 25 mg tablet 25 mg PO BID 08/04/24 08/04/24 furosemide 20 mg tablet 20 mg PO DAILY 08/04/24 08/04/24 levothyroxine 88 mcg capsule 88 mcg PO DAILY 08/04/24 08/04/24 losartan 50 mg tablet 50 mg PO DAILY 08/04/24 08/04/24 nifedipine 30 mg tablet,extended 30 mg PO DAILY 08/04/24 08/04/24 release 24 hr simvastatin 20 mg tablet 20 mg PO DAILY 08/04/24 08/04/24 Previous Rx's ?Medication ?Instructions ?Recorded dapagliflozin propanediol 10 mg 10 mg PO DAILY #90 tabs 08/04/24 tablet (Farxiga) Allergies Allergy/AdvReac Type Severity Reaction Status Date / Time No Known Allergies Allergy Verified 08/18/24 08:25 Review of Systems 2 Review of Systems: Yes all other systems are reviewed and are negative [facility] Past Medical History Medical History (Updated 08/18/24 @ 14:07 by Francisco Ford MD) Chronic kidney disease Chronic diastolic (congestive) heart failure Morbid obesity Essential hypertension Family History Family History (Updated 08/04/24 @ 11:02 by Cate Hankins CMA) Father Parkinson disease Mother HTN (hypertension) Asthma Social History Social History (Updated 08/04/24 @ 11:02 by Cate Hankins CMA) Alcohol intake: current Alcohol intake frequency: holidays/special occasions only Patient Tobacco Use Status: Former Tobacco user Advance Directives: Yes Advance Directives Information Provided: Yes Advance Directives on File: No Do you have a plan to hurt others: No Plan Physical Exam ED Vital Signs: Vital Signs - 24 hr 08/18/24 08:20 08/18/24 11:03 08/18/24 12:56 Temperature 98.1 F 97.5 F 97.6 F Pulse Rate 73 70 68 Respiratory Rate 18 18 24 H Blood Pressure 117/40 L 100/42 L 89/35 L Pulse Oximetry 98 97 96 Oxygen Delivery Method Room Air Room Air Room Air BMI result Body Mass Index 46.4 Vital signs were unremarkable. Exam: General: Awake, alert in no distress, weight is 134.3 kg with an elevated BMI 46.4 kg per m2. Head: Normocephalic, atraumatic EENT: PERRL, Lids normal, sclera normal, conjunctiva normal, nose normal , ears normal, throat without erythema or exudates Neck: Supple, no adenopathy Lung: breath sounds symmetric, no wheezing, rales or rhonchi Chest: symmetric movement, nontender Heart: regular rate and rhythm, normal S1, S2 no murmurs or rubs Abdomen: Abdomen is obese, nontender, nondistended with normoactive bowel sounds Back: no vertebral tenderness, no CVAT Extremities: Patient has bilateral erythema which is circumferential and symmetric, to the erythema, he does have several areas of skin breakdown with a yellowish discharge from these areas, he also had several areas that are bleeding secondary to skin breakdown. 1+ pitting edema both lower extremities with the left leg being larger than the right. Neuro: Awake, alert, oriented, normal speech, cranial nerves intact, moves all extremities symmetrically Psych: Pleasant, cooperative Skin Other: Medications Administered Generic Name Dose Route Start Last Admin Trade Name Freq PRN Reason Stop Dose Admin Furosemide 200 mg/ Sodium 100 mls @ 5 mls/hr 08/18/24 12:00 08/18/24 13:05 Chloride IVCONT Not Given .Q20H MARTHA 10 MG/HR Discontinued Medications Generic Name Dose Route Start Last Admin Trade Name Freq PRN Reason Stop Dose Admin Lidocaine HCl 10 ml 08/18/24 11:53 08/18/24 13:12 Lidocaine Hcl 2 % Urojet 10 Ml Jel.Pf.Giorgio TOPICAL 08/18/24 11:54 10 ml ONCE ONE Administration Medical Decision Making Medical Decision Making [facility] [place] Narrative: 74-year-old male with a history of chronic kidney disease, hypertension, morbid obesity, severe diastolic dysfunction with an EF of 48% who presents emergency department for evaluation of difficulty walking, chronic weeping leg wounds since 01/10/2024 and fall last night with no significant injury. Patient was seen on 07/25/[address] Rogers who felt that the lower extremity swelling was caused by combination of obesity and diastolic congestive heart failure. Patient was started on furosemide 20 mg daily with no improvement of his symptoms. His states he is having increased difficulty walking secondary to his leg swelling. Vital signs were normal. Physical examination did reveal erythema to lower extremities which is consistent with a chronic dermatitis as well as several areas of superficial skin avulsion which are weeping and bleeding. He also has significant breakdown of the skin of his thighs. Patient also has 1+ pitting edema with asymmetric swelling of the lower extremities left being greater than right. Differential diagnosis: ?Includes but is not limited to bilateral DVTs, cellulitis, peripheral edema, renal failure, electrolyte abnormalities, anemia Course: 10:04 My independent interpretation patient's laboratory evaluation as follows: BUN and creatinine 70 and 3.31 with a GFR of 18 compared to 05/31/2024 BUN 26 and creatinine of 1.6 with a GFR of 42. Potassium was 4.3. Bicarb 21. H&H 11.4 and 32.6. Decreased from 13 and 39 on 05/31/2024. 14:01 Duplex ultrasound did not reveal any DVT bilaterally I did consult the patient's process controller, Dr. Bhandari. Patient was seen by the nephrology nurse practitioner, Rhonda Bray. Their impression is that the patient has cardiorenal syndrome. They recommended renal ultrasound to rule out obstruction since he was complaining of difficulty emptying his bladder. They recommended Lasix drip 10 milligrams/hour and a renal ultrasound. The the patient has an uncircumcised small penis and nursing staff was unable to pass a Hope catheter. I did consult Dr. Gates and he states that he will come to the emergency department and help with Hope catheter insertion. And I did order bladder scan on the patient as well. Patient's presentation was discussed over tiger text with the covering hospitalist, Dr. Mon. Admission/Observation Consideration of admission/observation: Escalation of care including admission/observation considered (Yes) Consult Healthcare Provider Management of the patient was discussed with: Hospitalist and Digital Production Operator (Dr. Jara) Lab Data MDM Lab Attestation statement: I reviewed the patient's lab results. 08/18/24 09:10 08/18/24 09:10 Labs: Lab Results 08/18/24 Range/Units 09:10 WBC 11.6 H (4.8-10.8) X10*3/uL RBC 3.62 L (4.60-5.80) X10*6/uL Hgb 11.4 L (14.0-18.0) g/dl Hct 32.6 L (42.0-52.0) % MCV 90.1 (80.0-98.0) fL MCH 31.5 (27.0-33.0) pg MCHC 35.0 (31.0-36.0) g/dl RDW 13.7 (11.0-16.0) % Plt Count 247 (160-400) X10*3/uL MPV 9.5 (9.4-12.4) fL Immature Gran % (Auto) 0.8 H (0.0-0.4) % Neut % (Auto) 77.5 H (45-73) % Lymph % (Auto) 6.5 L (20-40) % Clare % (Auto) 9.5 (2-11) % Eos % (Auto) 5.1 H (0-4) % Baso % (Auto) 0.6 (0-2) % Lymph # (Auto) 0.8 L (1.2-4.9) X10*3/uL Clare # (Auto) 1.1 (0.1-1.2) X10*3/uL Eos # (Auto) 0.6 H (0.0-0.4) X10*3/uL Baso # (Auto) 0.1 (0.0-0.2) X10*3/uL Abs Immat Gran (auto) 0.09 H (0.00-0.03) X10*3/uL Absolute Neuts (auto) 9.0 H (2.0-8.3) x10*3/uL Absolute Nucleated RBC 0.000 (0.0-0.012) X10*3/uL Nucleated RBC % (auto) 0.0 (0.0-0.2) /100WBC Sodium 132 L (135-145) mmol/L Potassium 4.3 (3.3-5.1) mmol/L Chloride 101 (96-108) mmol/L Carbon Dioxide 21 L (22-29) mmol/L Anion Gap 14 (12-20) BUN 70 H (9-16) mg/dL Creatinine 3.31 H (0.5-1.4) mg/dL Estim Creat Clear Calc 25.0 Estimated GFR 18 Random Glucose 152 H (60-115) mg/dL Calcium 8.6 D (8.4-10.2) mg/dL Total Bilirubin 0.8 (0.0-1.0) mg/dL AST 43 H (5-37) U/L ALT 17 (0-40) U/L Alkaline Phosphatase 75 (39-117) U/L Total Protein 6.7 (6.5-8.0) g/dL Albumin 3.1 L (3.5-5.0) g/dL Radiology Impression Discussion of test interpretation with radiology: I have reviewed the radiologist's reading. Radiologist Impression: US venous duplex LE BI IMPRESSION: No evidence of deep venous thrombosis involving the bilateral lower extremities. Electronically signed by: Jagdish Guevara MD 08/18/2024 11:52 AM [facility] Dictated By: Jagdish Guevara MD Critical Care Time Critical Care Time Critical Care Time: Yes Total Critical Care Time: 45 Attestation: Critical Care: The patient was critically ill with a high probability of imminent or life threatening deterioration. I spent greater than 30 minutes of discontinuous time evaluating the patient,delivering critical care at the bedside, discussing and evaluating pertinent data with consultants. Critical care time does not include time spent performing separately billable procedures or teaching. Total time spent performing critical care was 45 minutes. Discharge Plan Discharge Clinical Impression: Cardiorenal syndrome with renal failure, Peripheral edema, Ulcer of left lower extremity, limited to breakdown of skin, Chronic ulcer of right leg, limited to breakdown of skin Patient Disposition: Admitted As Inpatient Prescriptions: No Action levothyroxine 88 mcg capsule 88 mcg PO DAILY carvedilol 25 mg tablet 25 mg PO BID Rx Instructions: must administer with a meal/food simvastatin 20 mg tablet 20 mg PO DAILY nifedipine 30 mg tablet extended release 24hr 30 mg PO DAILY aspirin [Adult Low Dose Aspirin] 81 mg tablet,delayed release (DR/EC) 81 mg PO DAILY furosemide 20 mg tablet 20 mg PO DAILY losartan 50 mg tablet 50 mg PO DAILY dapagliflozin propanediol [Farxiga] 10 mg tablet 10 mg PO DAILY Qty: 90 3RF Print Language: Beninese
[2024-08-18 09:32] LABS: Alanine Aminotransferase 17 U/L (0-40); Albumin Level 3.1 g/dL (3.5-5.0); Alkaline Phosphatase 75 U/L (39-117); Anion Gap 14 (12-20); Aspartate Amino Transferase 43 U/L (5-37); Bilirubin Total 0.8 mg/dL (0.0-1.0); Blood Urea Nitrogen 70 mg/dL (9-16); Calcium 8.6 mg/dL (8.4-10.2); Carbon Dioxide 21 mmol/L (22-29); Chloride 101 mmol/L (96-108); Estimated Glomerular Filt Rate 18; Glucose Random 152 mg/dL (60-115); Potassium 4.3 mmol/L (3.3-5.1); Sodium 132 mmol/L (135-145); Total Protein 6.7 g/dL (6.5-8.0)
--- NOTE | 2024-08-18 10:02 | PC.NURSE ---
CARE Team again attempting to speak with pt. because he is now sitting up in bed, speaking with his 1:1. Pt. very dismissive to CARE Team
--- NOTE | 2024-08-18 11:00 | P.CONNP_ITS ---
History of Present Illness Reason for Consult Consult date: 08/18/24 Chief Complaint Chief complaint: FALL,SILVINA LEG INF WEEPING/BLEEDING PER EMS History of Present Illness Narrative: 74 y/o male with a medical history of CKD, HTN, morbid obesity, diastolic dysfunction with EF 48%. 08/18 presented to ED wtih difficulty walking, weakness, chronic weeping leg wounds (ongoing since December 2023), reported fall night prior. Nephrology consulted for SANJEEV, lower extremity edema. Pt is followed by Dr Jara as an outpatient. 05/31/24 creatinine 1.60 08/18/24 creatinine 3.31, sodium 132, serum bicarb 21, BUN 70 Patient states he has been taking furosemide 20mg daily for last few months through his anode adjuster Dr Rogers for management of heart failure and edema. Pt states since starting lasix a few months ago, he notices difficulty emptying his bladder and difficulty starting his urinary stream. Denies pain with urination, flank pain, blood in urine, suprapubic pain. He states he feels mildly short of breath and has for some time now. Denies other new concerns/symptoms Denies starting new medications in last few weeks Denies use of NSAIDs, states he occasionally takes tylenol for pain home medications include losartan 50mg daily, nifedipine 30mg daily, furosemide 20mg daily, carvedilol 25mg PO BID, aspirin 81mg daily, farxiga 10mg daily and simvastatin 20mg daily Review of Systems Constitutional: Reports fatigue, Reports lethargy and Reports weakness Cardiovascular: Denies chest pain, Reports leg ulcers, Reports leg edema, Denies lightheadedness, Reports dyspnea, Reports dyspnea on exertion and Reports orthopnea Respiratory: Denies cough, Reports dyspnea and Reports dyspnea on exertion Gastrointestinal: Denies abdominal pain, Denies constipation, Denies diarrhea, Denies nausea and Denies vomiting Genitourinary: Denies hematuria, Denies oliguria, Reports difficulty urinating, Denies dysuria, Denies flank pain, Denies urinary frequency, Reports urinary hesitancy and Denies urinary incontinence Musculoskeletal: Denies arthralgias Skin/Breast: Denies rash and Reports sores Reports weakness Endocrine: Reports fatigue PMFSH Past Medical History Medical History (Updated 08/18/24 @ 11:29 by Rhonda Bray, JACE, TRANSACTION ADVISORY SERVICES MANAGER-BC) Chronic kidney disease Chronic diastolic (congestive) heart failure Morbid obesity Essential hypertension Family History Family History (Updated 08/04/24 @ 11:02 by Cate Hankins CMA) Father Parkinson disease Mother HTN (hypertension) Asthma Social History Social History (Updated 08/04/24 @ 11:02 by Cate Hankins CMA) Alcohol intake: current Alcohol intake frequency: holidays/special occasions only Patient Tobacco Use Status: Former Tobacco user Advance Directives: Yes Advance Directives Information Provided: Yes Advance Directives on File: No Do you have a plan to hurt others: No Plan Meds Allergies Allergy/AdvReac Type Severity Reaction Status Date / Time No Known Allergies Allergy Verified 08/18/24 08:25 Home Medications ?Medication ?Instructions ?Recorded ?Confirmed ?Last Taken ?Type aspirin 81 mg tablet,delayed 81 mg PO DAILY 08/04/24 08/04/24 Unknown History release (Adult Low Dose Aspirin) carvedilol 25 mg tablet 25 mg PO BID 08/04/24 08/04/24 Unknown History furosemide 20 mg tablet 20 mg PO DAILY 08/04/24 08/04/24 Unknown History levothyroxine 88 mcg capsule 88 mcg PO DAILY 08/04/24 08/04/24 Unknown History losartan 50 mg tablet 50 mg PO DAILY 08/04/24 08/04/24 Unknown History nifedipine 30 mg tablet,extended 30 mg PO DAILY 08/04/24 08/04/24 Unknown History release 24 hr simvastatin 20 mg tablet 20 mg PO DAILY 08/04/24 08/04/24 Unknown History Physical Exam Vital Signs: Last Vital Signs Temp 98.1 F 08/18/24 08:20 Pulse 73 08/18/24 08:20 Resp 18 08/18/24 08:20 BP 117/40 L 08/18/24 08:20 Pulse Ox 98 08/18/24 08:20 O2 Del Method Room Air 08/18/24 08:20 BMI result Body Mass Index 46.4 Const General: no acute distress, alert and awake Nutritional Appearance: obese Orientation/consciousness: patient oriented x3 Neck Neck: Yes no JVD Resp Effort & Inspection: normal respiratory effort and able to speak in complete sentences Auscultation: crackles Cardio Jugular venous distension: no JVD Rate: regular rate Rhythm: regular rhythm Heart sounds: S1 normal heart sound present, S2 normal heart sound present and Murmur heart sound present GI Palpation (GI): Soft to palpation and nontender Skin Rashes: no rashes Wounds: wounds noted (lower extremity weeping, superficial) Neuro General: patient oriented x3 Extrem General: Yes edema (+3 BLE edema) Results Lab Results 08/18/24 09:10 08/18/24 09:10 Lab results: Chemistry 08/18/24 09:10 Sodium 132 L Potassium 4.3 Carbon Dioxide 21 L BUN 70 H Creatinine 3.31 H Calcium 8.6 D Hematology 08/18/24 09:10 WBC 11.6 H Hgb 11.4 L Plt Count 247 Assessment and Plan (1) Chronic kidney disease: Qualifiers: Chronic kidney disease stage: stage 3 (moderate) Chronic kidney disease stage 3 subtype: stage 3a (GFR 45-59) Qualified Code(s): N18.31 - Chronic kidney disease, stage 3a Status: Acute (2) SANJEEV (acute kidney injury): Status: Acute (3) Morbid obesity: Status: Acute (4) Lower extremity edema: Status: Acute (5) Weakness: Status: Acute (6) Chronic diastolic (congestive) heart failure: Status: Acute Plan SANJEEV on CKD3 New most likely secondary to cardiorenal sydnrome, pt fluid overloaded recommend lasix drip at 10mg/hr and carbone catheter placement will get renal ultrasound, urine protein/creatinine ratio, SPEP avoid nephrotoxins, recommend regular blood pressure checks and close I&O monitoring continue supportive care will continue to follow Discussed with Dr Jara Procedures Date of Service Date of Service: 08/18/24
--- NOTE | 2024-08-18 11:04 | PC.NURSE ---
Severe excoriation observed to groin and rectal area. Pt.'s states that pt. is not able to shower himself d/t mobility issues and spends most of his days sedentary in a recliner. Radha Ford MD aware
--- NOTE | 2024-08-18 11:05 | PC.NURSE ---
Pt. repositioned in stretcher and clean pads applied.
--- NOTE | 2024-08-18 11:10 | PC.NURSE ---
Confirmed with Radha Ford MD that he does not want a Lactic and/or blood cultures drawn at this time due to leg wounds, WBC and soft BP. No lactic or cultures at this time
--- NOTE | 2024-08-18 11:59 | PC.NURSE ---
18G peripheral IV to RAC. Tolerated well. Good blood return and flushes without difficulty or discomfort.
--- NOTE | 2024-08-18 12:59 | PC.NURSE ---
Per Radha Ford MD - do not administer Lasix gtt at this time due to blood pressure.
[2024-08-18] MEDS: Lidocaine HCl 2 % Urojet 10 ML JEL.PF.APP TOPICAL (13:12)
--- NOTE | 2024-08-18 13:22 | PC.NURSE ---
Unsuccessful Hope catheter insertion. Pt. with excess foreskin and very difficult to visualize the urethra. aware
--- NOTE | 2024-08-18 14:47 | PHA.MEDREC ---
Pharmacy Consult ? Medication Reconciliation Pharmacy has completed the medication reconciliation. Spoke with patient and patient family ( and daughter) at bedside, had a list to confirm patients information. The patient confirmed he is no longer taking the Amiodarone 200mg tabs and states he got a new Dr and the Dr did not want him taking it anymore so he stopped it. The patient also confirmed he never got the Farxiga 10mg tab from the pharmacy due to the copay being over $300. The and patient confirmed he last took his medications this morning.
--- NOTE | 2024-08-18 15:16 | PC.NURSE ---
Dr. Gates from Urology to bedside to insert pt.'s Hope.
[2024-08-18] MEDS: Furosemide 200 MG in 0.9 % Sodium Chloride 80 ML IVCONT (16:06)
--- NOTE | 2024-08-18 16:08 | PC.NURSE ---
Bonnie Crawford MD aware of current BP and how low BP/MAPs have been trending. would still like Lasix gtt started at this time.
[2024-08-18] MEDS: Heparin Sodium,Porcine 5,000 UNIT/ML VIAL 5000 UNIT SUBCUT ×2 (16:10→23:30)
--- NOTE | 2024-08-18 17:16 | PC.NURSE ---
BP 91/28 with MAP 51, provider aware that Lasix gtt is infusing
[2024-08-18 17:26] LABS: Creatinine Urine 187.65 mg/dL; Protein/Creatinine Ratio, Ur 0.08 (<0.2); Total Protein Urine Random 15 mg/dL (<12)
--- NOTE | 2024-08-18 17:34 | PC.NURSE ---
79/22 (MAP 41) Bonnie Crawford MD notified
--- NOTE | 2024-08-18 17:39 | PC.NURSE ---
Per - turn off Lasix gtt
--- NOTE | 2024-08-18 18:17 | P.HPHOSP_ITS ---
History of Present Illness Date of Service: 08/18/24 Chief Complaint: Weakness with lower extremity edema 74-year-old male with a history of chronic kidney disease, hypertension, morbid obesity, severe diastolic dysfunction with an EF of 48% who presents emergency department for evaluation of I difficulty walking, chronic weeping leg wounds and fall last night. Patient states he has noticed swelling, redness and weeping of his lower extremities since December of 2023. Last night at around 19:00 hours he was walking in his living room when he tripped on a blanket and fell into the sofa. He denies any significant injury from the fall. He states however he has had increased difficulty walking over last 2 weeks which she attributes to swelling in his lower extremities. He denied chest pain, shortness of breath, nausea, vomiting or diarrhea. Patient has been taking Lasix 20 mg once a day since 07/25/2024-this was started by Dr. Rogers. Patient was seen by Dr. Vilchis on 08/04/2024 or lower extremity edema/swelling. He felt that the etiology for his lower extremity swelling was a combination of his obesity and his congestive heart failure. Patient was started on Lasix 20 mg daily. Patient states that he has had increased urinary frequency but he was not restricted the amount of fluid that he has been drinking. Consult placed to Renal who recommended lasix drip. ER unable to place carbone... and placed cath. Pt noted to have what appears to be extensive fungal dermatitis over bilat thighs with posterior sloughing. Pts BP continued in 80-90 systolic range. Drip started however BP's trended downward. Pt has BP<90, severe cellulitis and respiratory rate >20 meeting criteria for severe sepsis. BC x2/Lactic acid/30cc/kg bolus ordered. Discussed with ICU attending Review of Systems 2 Review of Systems: Denies chest pain Denies SOB Denies N/V/D Denies fever/chills [facility] [place] Medical History Chronic kidney disease Chronic diastolic (congestive) heart failure Morbid obesity Essential hypertension Family History Father Parkinson disease Mother HTN (hypertension) Asthma Social History Alcohol intake: current Alcohol intake frequency: holidays/special occasions only Patient Tobacco Use Status: Former Tobacco user Advance Directives: Yes Advance Directives Information Provided: Yes Advance Directives on File: No Do you have a plan to hurt others: No Plan Meds Allergies Allergy/AdvReac Type Severity Reaction Status Date / Time No Known Allergies Allergy Verified 08/18/24 08:25 Active Medications: Current Medications Acetaminophen (Acetaminophen 325 Mg Tablet) 650 mg PO Q6H PRN PRN Reason: Pain, Mild (Pain Scale 1-3), fever or headache Aspirin (Aspirin Enteric Coated 81 Mg Tablet.Dr) 81 mg PO DAILY [facility] Atorvastatin Calcium (Atorvastatin Calcium 10 Mg Tablet) 10 mg PO DAILY [facility] Calcium Carbonate (Calcium Carbonate 750 Mg Tab.Chew) 750 mg PO Q4H PRN PRN Reason: Heartburn Carvedilol (Carvedilol 25 Mg Tablet) 25 mg PO BID MARTHA; Protocol Heparin Sodium (Porcine) (Heparin Sodium,Porcine 5,000 Unit/Ml Vial) 5,000 unit SUBCUT Q8H [facility] Last Admin: 08/18/24 16:10 Dose: 5,000 unit Furosemide 200 mg/ Sodium (Chloride) 100 mls @ 5 mls/hr IVCONT .Q20H MARTHA Last Admin: 08/18/24 16:06 Dose: 10 mg/hr, 5 mls/hr Piperacillin Sod/Tazobactam (Sod 2.25 gm/ Sodium Chloride) 50 mls @ 100 mls/hr IV Q6H MARTHA Fluconazole (Diflucan) 200 mg in 100 mls @ 100 mls/hr IV Q24H [facility] Levothyroxine Sodium (Levothyroxine Sodium 100 Mcg Tablet) 100 mcg PO DAILY@0600 [facility] Magnesium Hydroxide (Milk Of Magnesia 30 Ml Oral.Susp) 30 ml PO DAILY PRN PRN Reason: Constipation Melatonin (Melatonin 3 Mg Tablet) 6 mg PO BEDTIME PRN PRN Reason: Insomnia Multivitamins/Vitamin C (Multivitamin Tablet) 1 tab PO DAILY [facility] Ondansetron HCl (Ondansetron Hcl 4 Mg/2 Ml Vial) 4 mg IVPUSH Q8H PRN PRN Reason: Nausea and Vomiting Pharmacy Consult (Consult Rx Vancomycin Dosing) 1 each MISCELLANE DAILY PRN PRN Reason: Consult order Sodium Chloride (0.9 % Sodium Chloride Flush 3 Ml Syringe) 3 ml IVFLUSH QSHIFT [facility] Last Admin: 08/18/24 15:37 Dose: Not Given Home Medications ?Medication ?Instructions ?Recorded ?Confirmed ?Last Taken ?Type aspirin 81 mg tablet,delayed 81 mg PO DAILY 08/04/24 08/18/24 08/18/24 History release (Adult Low Dose Aspirin) carvedilol 25 mg tablet 25 mg PO BID 08/04/24 08/18/24 08/18/24 History furosemide 20 mg tablet 20 mg PO DAILY 08/04/24 08/18/24 08/18/24 History losartan 50 mg tablet 50 mg PO DAILY 08/04/24 08/18/24 08/18/24 History nifedipine 30 mg tablet,extended 30 mg PO DAILY 08/04/24 08/18/24 08/18/24 History release 24 hr simvastatin 20 mg tablet 20 mg PO DAILY 08/04/24 08/18/24 08/18/24 History levothyroxine 100 mcg tablet 100 mcg PO DAILY@0630 08/18/24 08/18/24 Unknown History multivitamin 1 tab PO DAILY 08/18/24 08/18/24 08/18/24 History omega 1-nnx-ivc-fish oil 1,000 mg 1 cap PO DAILY 08/18/24 08/18/24 08/18/24 History (120 mg-180 mg) capsule (Fish Oil) Physical Exam 2 Vital Signs and Narrative: Vital Signs: Last Vital Signs Temp 97.0 F 08/18/24 15:43 Pulse 70 08/18/24 15:43 Resp 18 08/18/24 15:43 BP 79/22 L 08/18/24 17:33 Pulse Ox 97 08/18/24 15:43 O2 Del Method Room Air 08/18/24 15:43 BMI result Body Mass Index 46.4 Const: Other: Awake/alerrt NAD Resp: Other: Clear to auscultation bilat; no rales/rhonchi/wheezes Cardio: Other: NO S4; + S1/S2;no S3 M/R/G GI: Other: obese/soft non-tender with NABS x 4 quads Skin: Other: difuse/weepy erythema over bilateral thioghs...sloughing on posterior aspect(see photos in ER documentation) Extrem: Other: bilat edema Results Labs 08/18/24 09:10 08/18/24 09:10 Labs: Laboratory Results - last 24 hr 08/18/24 08/18/24 09:10 15:59 MCV 90.1 MCH 31.5 MCHC 35.0 RDW 13.7 Plt Count 247 MPV 9.5 Immature Gran % (Auto) 0.8 H Neut % (Auto) 77.5 H Lymph % (Auto) 6.5 L [place] % (Auto) 9.5 Eos % (Auto) 5.1 H Baso % (Auto) 0.6 Lymph # (Auto) 0.8 L [place] # (Auto) 1.1 Eos # (Auto) 0.6 H Baso # (Auto) 0.1 Abs Immat Gran (auto) 0.09 H Absolute Neuts (auto) 9.0 H Absolute Nucleated RBC 0.000 Nucleated RBC % (auto) 0.0 Anion Gap 14 Estim Creat Clear Calc 25.0 Estimated GFR 18 Random Glucose 152 H Calcium 8.6 D Total Bilirubin 0.8 AST 43 H ALT 17 Alkaline Phosphatase 75 Total Protein 6.7 Albumin 3.1 L U Random Total Protein 15 H Urine Creatinine 187.65 Protein/Creatinin Ratio 0.08 Imaging Radiologist's Impressions: Impressions Venous Duplex 08/18/24 10:22 IMPRESSION: No evidence of deep venous thrombosis involving the bilateral lower extremities. Electronically signed by: Jagdish Guevara MD 08/18/2024 11:52 AM [facility] [place] Assessment and Plan (1) Fungal dermatitis: Status: Acute (2) Severe sepsis: Status: Acute (3) Cardiorenal syndrome with renal failure: Status: Acute (4) Chronic diastolic (congestive) heart failure: Status: Acute Plan 74 yo male presents with worsen lower extremity edema and SANJEEV. Noted to have extensive thigh and perineal fungal cellulitis. Lasix drip recommend by renal but pts BP would note tolerate. 1. Severe sepsis secondary to diffuse cellultis -BC x2/Lactate drawn -vancomycin/zosyn (renally dosed)..fluconazole IV -NSS bolus 30cc/kg as per protocol -Pt stable at this time. Discussed with ICU attending...follow respopnse to volume. 2. SANJEEV likely secondary exacerbation of CKD -NSS bolus as ordered -follow renals/divalents in am -renal consult 3.CHronic diastolic heart failure -DC lasix drip at this time -cardiologyt consult 4. Hpertension by HX...hypotensive at this time -hold antihypertensives at this time -add back when appropriate Quality Stroke Does the patient have a stroke diagnosis?: No VTE Prior VTE?: No VTE Risk Level:: Medical - moderate - high VTE Device Contraindication: Treatment Not Indicated VTE Drug Contraindication: N/A - Med Ordered
[2024-08-18 18:39] LABS: Lactic Acid 1.8 mmol/L (0.5-2.0)
--- NOTE | 2024-08-18 18:45 | PC.NURSE ---
Assumed care of patient at 1845. Patient resting comfortably at this time
[2024-08-18] MEDS: SODIUM CHLORIDE 4029 ML IV (19:13)
[2024-08-18] MEDS: vancomycin HCL 1,500 MG in 0.9 % Sodium Chloride 500 ML 333.33 MG IV (19:27)
[2024-08-18] MEDS: Piperacillin Sodium/Tazobactam 2.25 GM in 0.9 % Sodium Chloride 50 ML IV ×2 (19:30→23:30)
[2024-08-18 19:55] LABS: MANUAL DIFF FLAG NO
[2024-08-18 19:57] LABS: Basophils Absolute Auto 0.1 X10*3/uL (0.0-0.2); Basophils Percent Auto 0.4 % (0-2); Eosinophils Absolute Auto 0.1 X10*3/uL (0.0-0.4); Eosinophils Percent Auto 0.8 % (0-4); Hematocrit 30.3 % (42.0-52.0); Hemoglobin 9.9 g/dl (14.0-18.0); Imm Gran Abs Auto 0.08 X10*3/uL (0.00-0.03); Imm Gran Pct Auto 0.6 % (0.0-0.4); Lymphocytes Absolute Auto 0.5 X10*3/uL (1.2-4.9); Lymphocytes Percent Auto 4.2 % (20-40); Mean Corpuscular HGB Conc 32.7 g/dl (31.0-36.0); Mean Corpuscular Hemoglobin 31.2 pg (27.0-33.0); Mean Corpuscular Volume 95.6 fL (80.0-98.0); Mean Platelet Volume 9.4 fL (9.4-12.4); Monocytes Absolute Auto 1.2 X10*3/uL (0.1-1.2); Monocytes Percent Auto 9.6 % (2-11); Neutrophils Absolute Auto 10.8 x10*3/uL (2.0-8.3); Neutrophils Percent Auto 84.4 % (45-73); Platelet Count 220 X10*3/uL (160-400); Red Blood Count 3.17 X10*6/uL (4.60-5.80); White Blood Count 12.8 X10*3/uL (4.8-10.8)
[2024-08-18] MEDS: Fluconazole in NaCl,Iso-Osm 200 MG/100 ML PIGGYBACK 100 MG IV (20:01)
--- NOTE | 2024-08-18 20:15 | MHC.EDTECH ---
This tech attempted to do EKG. Unable to obtain a clear reading due to numerous tremors. Tried using the EKG machine from triage, exchanged leads, stickers, etc and ashwini bentley were unsuccessful. Rn aware
[2024-08-18 20:17] LABS: Alanine Aminotransferase 14 U/L (0-40); Albumin Level 2.4 g/dL (3.5-5.0); Alkaline Phosphatase 61 U/L (39-117); Anion Gap 17 (12-20); Aspartate Amino Transferase 32 U/L (5-37); Bilirubin Total 0.8 mg/dL (0.0-1.0); Blood Urea Nitrogen 66 mg/dL (9-16); Calcium 7.9 mg/dL (8.4-10.2); Carbon Dioxide 13 mmol/L (22-29); Chloride 108 mmol/L (96-108); Creatinine Clr Calc Pharmacy 25.3; Estimated Glomerular Filt Rate 18; Glucose Random 170 mg/dL (60-115); Magnesium 2.2 mg/dL (1.6-2.6); Phosphorus 3.8 mg/dL (2.7-4.5); Potassium 4.2 mmol/L (3.3-5.1); Sodium 134 mmol/L (135-145); Total Protein 5.4 g/dL (6.5-8.0)
[2024-08-18 20:31] LABS: TSH reflex Free T4 2.42 uIU/mL (0.32-4.0)
[2024-08-18] MEDS: Norepinephrine Bitartrate/D5W 8 MG/250 ML PLAST..BAG 12.59 MG IVCONT (22:00)
--- NOTE | 2024-08-18 22:03 | PHA.PROG ---
Admission Date/Time: August 18, 2024 15:26 Indication: SKIN Weight in k.3 kg Adjusted body weight in Kg: Irene body weight in Kg: Obesity Dosing Indication % IBW: Serum Creatinine - Last 168 Hours 08/18/24 08/18/24 09:10 19:49 Creatinine 3.31 H 3.28 H Estimated CrCl and GFR - Last 168 Hours 08/18/24 08/18/24 09:10 19:49 Estim Creat Clear Calc 25.0 25.3 Estimated GFR 18 18 Vancomycin Loading Dose: 1500 MG DUE TO POOR RENAL FUNCTION Current Vancomycin Dosing Regimen: 750 MG Q24H Vancomycin Monitoring using AUC goal of 400 - 600 range with trough as surrogate marker: MZH=028 TROUGH=18.9 Date and Time for next Vancomycin Level to be drawn: 08/19/24 @1800 Pharmacist Comments on Vancomycin Plan: Vancomycin dosing will take advantage of [employer] as a clinical decision support tool that uses Bayesian modeling to calculate individual patient's pharmacokinetic parameters and forecast the patient's drug concentration time course with the target goal AUC 24 range of 400 - 600 mg/L/hr.
[2024-08-18] MEDS: Albumin Human 25 % 100 ML IV ×2 (22:21→23:29)
[2024-08-18 22:56] LABS: Appearance Urine Turbid; Color Urine Dark Yellow; Glucose Urine UA Negative (Negative); Leukocyte Esterase Urine Negative (Negative); Nitrite Urine Negative (Negative); PH 5.5 (5.0-9.0); Specific Gravity - Urine 1.015 (1.005-1.025); Urine Blood Negative (Negative); Urine Ketones Negative (Negative); Urine Protein Negative (Neg-Trace)
[2024-08-18 23:08] LABS: Bacteria Urine None Seen (None Seen); RBC Urine 0-2 /HPF (0-2); Squamous Epithelial Cell Urine 0-2 /HPF (0-2); WBC Urine 0-5 /HPF (0-5)
[2024-08-18] MEDS: Nystatin Cream 15 GM TUBE 1 APPL TOPICAL (23:30)
[2024-08-18] MEDS: 0.9 % Sodium Chloride Flush 3 ML SYRINGE IVFLUSH (23:30)
[2024-08-19] VITALS (39 sets, daily range): BP systolic 71–168; BP diastolic 29–97; PULSE 75–105; RESP 12–29; TEMP 36.9–37.2; O2SAT 92–96; BMI 46.4
[2024-08-19] MEDS: Piperacillin Sodium/Tazobactam 2.25 GM in 0.9 % Sodium Chloride 50 ML IV ×4 (05:13→22:53)
[2024-08-19] MEDS: Levothyroxine Sodium 100 MCG TABLET PO (05:14)
[2024-08-19 05:37] LABS: MANUAL DIFF FLAG NO
[2024-08-19 05:38] LABS: Basophils Percent Auto 0.3 % (0-2); Eosinophils Absolute Auto 0.2 X10*3/uL (0.0-0.4); Eosinophils Percent Auto 1.6 % (0-4); Hematocrit 27.4 % (42.0-52.0); Hemoglobin 9.5 g/dl (14.0-18.0); Imm Gran Abs Auto 0.06 X10*3/uL (0.00-0.03); Imm Gran Pct Auto 0.6 % (0.0-0.4); Lymphocytes Absolute Auto 0.6 X10*3/uL (1.2-4.9); Lymphocytes Percent Auto 6.1 % (20-40); Mean Corpuscular HGB Conc 34.7 g/dl (31.0-36.0); Mean Corpuscular Hemoglobin 31.1 pg (27.0-33.0); Mean Corpuscular Volume 89.8 fL (80.0-98.0); Mean Platelet Volume 9.5 fL (9.4-12.4); Monocytes Percent Auto 10.1 % (2-11); Neutrophils Absolute Auto 8.1 x10*3/uL (2.0-8.3); Neutrophils Percent Auto 81.3 % (45-73); Platelet Count 207 X10*3/uL (160-400); Red Blood Count 3.05 X10*6/uL (4.60-5.80); Red Cell Distribution Width 13.9 % (11.0-16.0); White Blood Count 9.9 X10*3/uL (4.8-10.8)
[2024-08-19 05:53] LABS: Lactic Acid 1.2 mmol/L (0.5-2.0)
[2024-08-19 05:56] LABS: Anion Gap 15 (12-20); Blood Urea Nitrogen 54 mg/dL (9-16); Calcium 8.2 mg/dL (8.4-10.2); Carbon Dioxide 17 mmol/L (22-29); Chloride 110 mmol/L (96-108); Creatinine Clr Calc Pharmacy 32.1; Estimated Glomerular Filt Rate 24; Glucose Random 145 mg/dL (60-115); Magnesium 2.1 mg/dL (1.6-2.6); Potassium 3.6 mmol/L (3.3-5.1); Sodium 138 mmol/L (135-145)
[2024-08-19 06:19] LABS: Albumin Level 2.9 g/dL (3.5-5.0)
--- NOTE | 2024-08-19 06:58 | P.PNCC_ITS ---
Subjective Subjective Date of Service: 08/19/24 Interval History: admitted overnight for persistent hypotension w/o overt signs of shock, thought to be d/t sepsis d/t soft tissue source Critical Care Time (minutes): 60 Physical Exam 2 Vital Signs: Vital Signs: Last Vital Signs Temp 98.9 F 08/19/24 06:00 Pulse 84 08/19/24 06:00 Resp 22 H 08/19/24 06:00 BP 124/43 L 08/19/24 06:00 Pulse Ox 94 08/19/24 06:00 O2 Del Method Room Air 08/19/24 06:00 BMI result Body Mass Index 46.4 Const: General: cooperative, comfortable, no acute distress, well developed, alert, awake and Physically active Orientation/consciousness: patient oriented x3 HEENT: Head: Yes normal to inspection, Yes normocephalic and Yes atraumatic Eyes: General: appearance normal, both eyes and all related structures Neck: Neck: Yes normal visual inspection, Yes full ROM, Yes no meningeal signs, Yes trachea midline and Yes supple Chest: Chest palpation & inspection: normal inspection of the chest Resp: Other: no appreciable rales, rhonchi, wheezing Effort & Inspection: normal respiratory effort Cardio: Rate: regular rate Rhythm: regular rhythm GI: Inspection: Yes normal to inspection, No Abdominal wall edema and No distended Palpation (GI): Soft to palpation, not firm, nontender, no guarding and not rigid Skin: Other: appreciable diffuse erythema, edema, w/ weeping wounds back of bilateral upper thighs; no overt appreciable fluctuance, induration Neuro: General: patient oriented x3, tone normal, moves all extremities, no meningeal signs and no focal motor deficits Extrem: Other: appreciable 1+ pitting edema to bilateral shins General: Yes normal to inspection, Yes full ROM and Yes capillary refill normal Psych: Appearance: grossly normal Objective Data Labs 08/19/24 05:14 08/19/24 05:14 Labs: Laboratory Results - last 24 hr 08/18/24 08/18/24 08/18/24 09:10 15:59 17:30 WBC 11.6 H RBC 3.62 L Hgb 11.4 L Hct 32.6 L MCV 90.1 MCH 31.5 MCHC 35.0 RDW 13.7 Plt Count 247 MPV 9.5 Immature Gran % (Auto) 0.8 H Neut % (Auto) 77.5 H Lymph % (Auto) 6.5 L [place] % (Auto) 9.5 Eos % (Auto) 5.1 H Baso % (Auto) 0.6 Lymph # (Auto) 0.8 L [place] # (Auto) 1.1 Eos # (Auto) 0.6 H Baso # (Auto) 0.1 Abs Immat Gran (auto) 0.09 H Absolute Neuts (auto) 9.0 H Absolute Nucleated RBC 0.000 Nucleated RBC % (auto) 0.0 Sodium 132 L Potassium 4.3 Chloride 101 Carbon Dioxide 21 L Anion Gap 14 BUN 70 H Creatinine 3.31 H Estim Creat Clear Calc 25.0 Estimated GFR 18 Random Glucose 152 H Lactic Acid Calcium 8.6 D Phosphorus Magnesium Total Bilirubin 0.8 AST 43 H ALT 17 Alkaline Phosphatase 75 Total Protein 6.7 Albumin 3.1 L TSH Urine Color Dark Yellow Urine Appearance Turbid Urine pH 5.5 Ur Specific [place] 1.015 Urine Protein Negative Urine Glucose (UA) Negative Urine Ketones Negative Urine Blood Negative Urine Nitrite Negative Ur Leukocyte Esterase Negative Urine RBC 0-2 Urine WBC 0-5 Ur Squamous Epith Cells 0-2 Urine Bacteria None Seen Hyaline Casts 6-10 U Random Total Protein 15 H Urine Creatinine 187.65 Protein/Creatinin Ratio 0.08 08/18/24 08/18/24 08/19/24 18:21 19:49 05:14 WBC 12.8 H 9.9 RBC 3.17 L 3.05 L Hgb 9.9 L 9.5 L Hct 30.3 L 27.4 L MCV 95.6 D 89.8 D MCH 31.2 31.1 MCHC 32.7 34.7 RDW 14.0 13.9 Plt Count 220 207 MPV 9.4 9.5 Immature Gran % (Auto) 0.6 H 0.6 H Neut % (Auto) 84.4 H 81.3 H Lymph % (Auto) 4.2 L 6.1 L [place] % (Auto) 9.6 10.1 Eos % (Auto) 0.8 1.6 Baso % (Auto) 0.4 0.3 Lymph # (Auto) 0.5 L 0.6 L [place] # (Auto) 1.2 1.0 Eos # (Auto) 0.1 0.2 Baso # (Auto) 0.1 0.0 Abs Immat Gran (auto) 0.08 H 0.06 H Absolute Neuts (auto) 10.8 H 8.1 Absolute Nucleated RBC 0.000 0.000 Nucleated RBC % (auto) 0.0 0.0 Sodium 134 L 138 Potassium 4.2 3.6 Chloride 108 110 H Carbon Dioxide 13 L 17 L Anion Gap 17 15 BUN 66 H 54 H Creatinine 3.28 H 2.58 H Estim Creat Clear Calc 25.3 32.1 Estimated GFR 18 24 Random Glucose 170 H 145 H Lactic Acid 1.8 1.2 Calcium 7.9 L D 8.2 L Phosphorus 3.8 3.0 Magnesium 2.2 2.1 Total Bilirubin 0.8 AST 32 ALT 14 Alkaline Phosphatase 61 Total Protein 5.4 L Albumin 2.4 L 2.9 L TSH 2.42 Urine Color Urine Appearance Urine pH Ur Specific [place] Urine Protein Urine Glucose (UA) Urine Ketones Urine Blood Urine Nitrite Ur Leukocyte Esterase Urine RBC Urine WBC Ur Squamous Epith Cells Urine Bacteria Hyaline Casts U Random Total Protein Urine Creatinine Protein/Creatinin Ratio Progress Note: A&P Assessment and plan (1) Acute on chronic renal insufficiency: Status: Acute (2) Cellulitis: Status: Acute Plan Patient is a 74 Y M w/ hypertension, morbid obesity, HFpEF, and chronic renal?insufficiency?initially?presenting to emergency department on 08/18 w/ acute on chronic bilateral?lower extremity edema, and found to have acute on chronic renal insufficiency, admitted to medicine; ICU consulted d/t persistent hypotension w/o evidence of overt shock, despite IV fluids; patient admitted for further work-up/management N: no acute issues CV: hypotension w/o evidence of overt shock; unclear etiology, to follow-up echocardiogram, infectious work-up; judicious use of IV fluids, norepinephrine gtt, wean as tolerated; HFpEF R: no acute issues GI: cardiac diet : acute on chronic renal insufficiency, BUN:creatinine suggestive of pre-renal etiology, possibly dehydration vs congestion, though improving w/ IV fluids; to closely monitor electrolytes, renal indices H: no acute issues; chemical DVT prophylaxis w/ heparin ID: c/f cellulitis, empiric fluconazole, vancomycin, zosyn, to follow-up BCx E: to monitor hypo-/hyper-glycemia P: no acute issues Quality Stroke Does the patient have a stroke diagnosis?: No VTE Prior VTE?: No VTE Risk Level:: Medical - moderate - high VTE Device Contraindication: Treatment Not Indicated VTE Drug Contraindication: N/A - Med Ordered
[2024-08-19] MEDS: Albumin Human 25 % 100 ML IV ×2 (09:55→13:06)
[2024-08-19] MEDS: 0.9 % Sodium Chloride Flush 3 ML SYRINGE IVFLUSH ×3 (09:55→22:55)
[2024-08-19] MEDS: Heparin Sodium,Porcine 5,000 UNIT/ML VIAL 5000 UNIT SUBCUT ×2 (09:55→16:27)
[2024-08-19] MEDS: Lactated Ringers 500 ML IVCONT ×2 (09:56→14:02)
[2024-08-19] MEDS: Multivitamin TABLET 1 TAB PO (09:56)
[2024-08-19] MEDS: Aspirin Enteric Coated 81 MG TABLET.DR PO (09:56)
[2024-08-19] MEDS: Atorvastatin Calcium 10 MG TABLET PO (09:57)
[2024-08-19] MEDS: Norepinephrine Bitartrate/D5W 8 MG/250 ML PLAST..BAG 22.66 MG IVCONT (10:15)
[2024-08-19] MEDS: Nystatin Cream 15 GM TUBE 1 APPL TOPICAL ×2 (11:37→20:05)
[2024-08-19] MEDS: Calcium Gluconate/NaCl,Iso-Osm 1 GM/50 ML PLAST..BAG IV (13:53)
--- NOTE | 2024-08-19 13:58 | MHC.CM.PN ---
IMM delivered. Patient lives in a home w/ . Ambulates w/ cane most times and uses walker PRN. assists w/ ADL's PRN, but patient reports he is mostly independent. PCP Ricco Salazar MD Reports he has an HCP naming his , Marilu, as HCA. Copy requested. DP: Goal is home, ? need for services. Will likely need PT eval when downgraded. to transport. CM will continue to follow.
[2024-08-19 19:36] LABS: Vancomycin Random 7.7 mcg/mL (15-20)
--- NOTE | 2024-08-19 19:52 | HE.PHANOTE ---
RE: VANCO DOSING Renal function is improving, trough came back as 7.7 as predicted (after loading dose of 1500 mg last night). Start maintenance dose of 750 mg q24h. Continue to monitor renal function closely, next trough is scheduled for 08/20/24 @1800.
[2024-08-19] MEDS: Fluconazole in NaCl,Iso-Osm 100 MG in Container,Empty 0 ML 50 MG IV (19:57)
[2024-08-19] MEDS: vancomycin HCL 750 MG in 0.9 % Sodium Chloride 250 ML 265 MG IV (20:34)
[2024-08-20] VITALS (22 sets, daily range): BP systolic 103–156; BP diastolic 39–80; PULSE 76–103; RESP 15–28; TEMP 36.2–37.3; O2SAT 91–97; BMI 46.3
[2024-08-20] MEDS: Piperacillin Sodium/Tazobactam 2.25 GM in 0.9 % Sodium Chloride 50 ML IV ×3 (05:22→17:43)
[2024-08-20] MEDS: Levothyroxine Sodium 100 MCG TABLET PO (05:22)
[2024-08-20 05:38] LABS: MANUAL DIFF FLAG NO
[2024-08-20 05:39] LABS: Basophils Absolute Auto 0.1 X10*3/uL (0.0-0.2); Basophils Percent Auto 0.6 % (0-2); Eosinophils Absolute Auto 0.3 X10*3/uL (0.0-0.4); Eosinophils Percent Auto 2.9 % (0-4); Hemoglobin 9.5 g/dl (14.0-18.0); Imm Gran Pct Auto 0.8 % (0.0-0.4); Lymphocytes Percent Auto 8.1 % (20-40); Mean Corpuscular HGB Conc 32.8 g/dl (31.0-36.0); Mean Corpuscular Hemoglobin 30.4 pg (27.0-33.0); Mean Corpuscular Volume 92.7 fL (80.0-98.0); Mean Platelet Volume 9.1 fL (9.4-12.4); Monocytes Absolute Auto 1.2 X10*3/uL (0.1-1.2); Monocytes Percent Auto 10.3 % (2-11); Neutrophils Absolute Auto 9.1 x10*3/uL (2.0-8.3); Neutrophils Percent Auto 77.3 % (45-73); Platelet Count 228 X10*3/uL (160-400); Red Blood Count 3.13 X10*6/uL (4.60-5.80); Red Cell Distribution Width 13.9 % (11.0-16.0); White Blood Count 11.8 X10*3/uL (4.8-10.8)
[2024-08-20 06:03] LABS: Albumin Level 3.1 g/dL (3.5-5.0); Anion Gap 16 (12-20); Blood Urea Nitrogen 27 mg/dL (9-16); Calcium 8.9 mg/dL (8.4-10.2); Carbon Dioxide 21 mmol/L (22-29); Chloride 112 mmol/L (96-108); Creatinine Clr Calc Pharmacy 49.9; Estimated Glomerular Filt Rate 40; Glucose Random 115 mg/dL (60-115); Magnesium 1.8 mg/dL (1.6-2.6); Phosphorus 2.1 mg/dL (2.7-4.5); Potassium 3.7 mmol/L (3.3-5.1); Sodium 145 mmol/L (135-145)
--- NOTE | 2024-08-20 07:00 | CA_ITS ---
Transthoracic Echocardiogram Patient (Last, First, Middle): Carl Godwin, Gender: Male Date of : 1950 Age: 74 Procedure Date: 08/20/2024 Procedure Type: Transthoracic Echocardiogram Location: ICU Height: 170.18 cm Weight: 133.81 kg BSA: 2.39 m2 Heart Rate: bpm BP: 128 / 80 mmHg [employer] Manager: KIRAN Referring MD: Ann Haas MD Symptoms: Please Assess Cardiac Function Study Quality: Technically Difficult/Contrast ECG Rhythm: Sinus Conclusions: - The left ventricular systolic function is mildly decreased. The visually estimated ejection fraction is between 40-45%. Findings Procedure Information Contrast agent, definity, is being given per protocol without apparent complications. Left Ventricle Normal left ventricular cavity size. There is mildly increased left ventricular wall thickness. The left ventricular systolic function is mildly decreased. The visually estimated ejection fraction is between 40-45%. Evidence suggests grade II (moderate) diastolic dysfunction. Venous The inferior vena cava is dilated and collapses greater than 50% with inspiration. Pericardium/Pleural There is a small circumferential pericardial effusion. Prior Study Comparison No significant change compared to prior study dated: 03/05/2024. Measurements 2D Linear Measurements IVSd: 1.10 0.6-0.9/0.6-1.0 cm LVIDd: 5.43 3.9-5.3/4.2-5.9 cm LVIDd Index: 2.27 2.4-3.2/2.2-3.1 cm/m2 LVIDs: 3.69 2.0-3.6 cm LVPWd: 1.20 0.7-1.1 cm LV Mass: 313.86 67-162/88-224 g LV Mass Index: 131.32 43-95/49-115 g/m2 LVOT Diam: 2.40 3.0+(-)1.3 cm 2D Systolic Function EF 4C: 54.30 >55% EF 2C: 46.20 >55% EF BiP: 49.60 >55% Mitral Valve MV Pk E: 1.29 MV PK A: 0.58 MV Decel Time: 202.00 E/A: 2.20 E'Lateral: 8.27 E'Medial: 6.20 E/E' Med: 20.80 E/E' Lat: 15.60 PHT: 59.00 MVA PHT: 3.73 Decel Wise: 6.38 LVOT LVOT Pk Watson: 0.99 LVOT Mn Watson: 0.62 LVOT VTI: 0.20 LVOT Pk Grad: 4.00 LVOT Mn Grad: 2.00 LVOT Diam: 2.40 LVOT Area: 4.52 Diastolic Function MV Pk E: 1.29 MV Pk A: 0.58 E/A: 2.20 E'Medial: 6.20 E/E' Med: 20.80 E' Laterial: 8.27 E/E' Lat: 15.60 Updated in Other Vendor System with Status of Final Baltazar Rogers MD electronically signed on 08/20/2024 12:22:51 PM with status of Final
--- NOTE | 2024-08-20 08:08 | P.PNCC_ITS ---
Subjective Subjective Date of Service: 08/20/24 Interval History: no significant overnight events Critical Care Time (minutes): 60 Physical Exam 2 Vital Signs: Vital Signs: Last Vital Signs Temp 98.4 F 08/20/24 04:00 Pulse 80 08/20/24 07:00 Resp 28 H 08/20/24 07:00 BP 146/46 H 08/20/24 07:00 Pulse Ox 95 08/20/24 07:00 O2 Del Method Room Air 08/20/24 07:00 O2 Flow Rate 2 08/20/24 06:00 BMI result Body Mass Index 46.3 Const: General: cooperative, healthy appearing, comfortable, no acute distress, well developed, alert, awake and Physically active O rientation/consciousness: patient oriented x3 HEENT: Head: Yes normal to inspection, Yes normocephalic and Yes atraumatic Eyes: General: appearance normal, both eyes and all related structures Neck: Neck: Yes normal visual inspection, Yes full ROM, Yes no meningeal signs, Yes trachea midline and Yes supple Chest: Chest palpation & inspection: normal inspection of the chest Resp: Other: no appreciable rales, rhonchi, wheezing Effort & Inspection: normal respiratory effort Cardio: Rate: regular rate Rhythm: regular rhythm GI: Inspection: Yes normal to inspection, No Abdominal wall edema and No distended Skin: Other: appreciable diffuse weeping wounds bilateral upper thighs w/o fluctuance, induration Neuro: General: patient oriented x3, tone normal, moves all extremities, no meningeal signs and no focal motor deficits Extrem: Other: 2+ pitting edema to bilateral shins; wou nds as described above General: Yes full ROM and Yes capillary refill normal Psych: Appearance: grossly normal Objective Data Labs 08/20/24 05:24 08/20/24 05:24 Labs: Laboratory Results - last 24 hr 08/19/24 08/20/24 19:01 05:24 WBC 11.8 H RBC 3.13 L Hgb 9.5 L Hct 29.0 L MCV 92.7 MCH 30.4 MCHC 32.8 RDW 13.9 Plt Count 228 MPV 9.1 L Immature Gran % (Auto) 0.8 H Neut % (Auto) 77.3 H Lymph % (Auto) 8.1 L [place] % (Auto) 10.3 Eos % (Auto) 2.9 Baso % (Auto) 0.6 Lymph # (Auto) 1.0 L [place] # (Auto) 1.2 Eos # (Auto) 0.3 Baso # (Auto) 0.1 Abs Immat Gran (auto) 0.10 H Absolute Neuts (auto) 9.1 H Absolute Nucleated RBC 0.000 Nucleated RBC % (auto) 0.0 Sodium 145 Potassium 3.7 Chloride 112 H Carbon Dioxide 21 L Anion Gap 16 BUN 27 H Creatinine 1.66 H Estim Creat Clear Calc 49.9 Estimated GFR 40 Random Glucose 115 Calcium 8.9 D Phosphorus 2.1 L Magnesium 1.8 Albumin 3.1 L Random Vancomycin 7.7 L Microbiology Microbiology Results: Microbiology 08/18/24 18:21 Blood - Venous Blood Culture - Preliminary No growth after 24 hours. 08/18/24 18:21 Blood - Venous Blood Culture - Preliminary No growth after 24 hours. Progress Note: A&P Assessment and plan (1) Cellulitis: Status: Acute (2) Severe sepsis: Status: Acute (3) Acute on chronic renal insufficiency: Status: Acute Plan Patient is a 74 Y M w/ hypertension, morbid obesity, HFpEF, and chronic renal?insufficiency?initially?presenting to emergency department on 08/18 w/ acute on chronic bilateral?lower extremity edema, and found to have acute on chronic renal insufficiency, admitted to medicine; ICU consulted d/t persistent hypotension w/o evidence of overt shock, despite IV fluids; patient admitted for further work-up/management N: no acute issues CV: hypotension w/o evidence of overt shock; unclear etiology, to follow-up echocardiogram, infectious work-up; judicious use of IV fluids, norepinephrine gtt, wean as tolerated; HFpEF R: no acute issues GI: cardiac diet : acute on chronic renal insufficiency, BUN:creatinine suggestive of pre-renal etiology, possibly dehydration vs congestion, though improving w/ IV fluids; to closely monitor electrolytes, renal indices H: no acute issues; chemical DVT prophylaxis w/ heparin ID: c/f cellulitis, empiric fluconazole, vancomycin, zosyn, to follow-up BCx E: to monitor hypo-/hyper-glycemia P: no acute issues Quality Stroke Does the patient have a stroke diagnosis?: No VTE Prior VTE?: No VTE Risk Level:: Medical - moderate - high VTE Device Contraindication: Treatment Not Indicated VTE Drug Contraindication: N/A - Med Ordered
[2024-08-20] MEDS: Heparin Sodium,Porcine 5,000 UNIT/ML VIAL 5000 UNIT SUBCUT ×2 (08:15→15:13)
[2024-08-20] MEDS: Potassium Phosphate/NS 15 MMOL/250 ML PLAST..BAG 62.5 MMOL IV (08:16)
[2024-08-20] MEDS: 0.9 % Sodium Chloride Flush 3 ML SYRINGE IVFLUSH ×3 (08:16→20:21)
[2024-08-20] MEDS: Albumin Human 25 % 50 ML 100 ML IV (08:17)
[2024-08-20] MEDS: Nystatin Cream 15 GM TUBE 1 APPL TOPICAL (08:17)
[2024-08-20] MEDS: Multivitamin TABLET 1 TAB PO (08:17)
[2024-08-20] MEDS: Aspirin Enteric Coated 81 MG TABLET.DR PO (08:17)
[2024-08-20] MEDS: Atorvastatin Calcium 10 MG TABLET PO (08:17)
[2024-08-20] MEDS: Norepinephrine Bitartrate/D5W 8 MG/250 ML PLAST..BAG IVCONT (09:49)
[2024-08-20 10:49] LABS: Prot Elec - Albumin 2.4 g/dL (3.8-4.8); Prot Elec - Alpha1 0.5 g/dL (0.2-0.3); Prot Elec - Beta 1 0.4 g/dL (0.4-0.6); Prot Elec - Beta 2 0.5 g/dL (0.2-0.5); Prot Elec - Gamma 0.8 g/dL (0.8-1.7); Prot Elec - Total Protein 5.6 g/dL (6.1-8.1)
--- NOTE | 2024-08-20 13:59 | MHC.CM.PN ---
Pt continuing care in ICU: making progress: d/c plan is for a return to home with VNA and family support. Pt may require a PT eval prior to d/c to ensure safety at home. CM to follow
--- NOTE | 2024-08-20 16:14 | PC.NURSE ---
Hope in place at time of downgrade, placed by Urology, to remain in place as per Deputy Fire Marshal
[2024-08-20 18:16] LABS: Vancomycin Random 6.3 mcg/mL (15-20)
[2024-08-20] MEDS: Fluconazole in NaCl,Iso-Osm 100 MG in Container,Empty 0 ML 50 MG IV (18:42)
[2024-08-20] MEDS: vancomycin HCL 1,500 MG in 0.9 % Sodium Chloride 500 ML 333.33 MG IV (20:18)
[2024-08-21] VITALS (8 sets, daily range): BP systolic 120–169; BP diastolic 57–73; PULSE 76–90; RESP 16–24; TEMP 36.4–37.2; O2SAT 94–96; BMI 46.1
[2024-08-21] MEDS: Piperacillin Sodium/Tazobactam 2.25 GM in 0.9 % Sodium Chloride 50 ML IV ×5 (00:09→23:36)
[2024-08-21] MEDS: Morphine Sulfate 2 MG/ML CARTRIDGE IVPUSH ×2 (00:12→23:41)
[2024-08-21] MEDS: Heparin Sodium,Porcine 5,000 UNIT/ML VIAL 5000 UNIT SUBCUT ×2 (00:12→09:00)
[2024-08-21] MEDS: Nystatin Cream 15 GM TUBE 1 APPL TOPICAL ×3 (00:18→23:37)
[2024-08-21] MEDS: Levothyroxine Sodium 100 MCG TABLET PO (05:06)
[2024-08-21 07:21] LABS: MANUAL DIFF FLAG NO
[2024-08-21 07:39] LABS: Basophils Absolute Auto 0.1 X10*3/uL (0.0-0.2); Basophils Percent Auto 0.9 % (0-2); Eosinophils Absolute Auto 0.5 X10*3/uL (0.0-0.4); Eosinophils Percent Auto 4.7 % (0-4); Hematocrit 28.3 % (42.0-52.0); Hemoglobin 9.1 g/dl (14.0-18.0); Imm Gran Pct Auto 0.9 % (0.0-0.4); Lymphocytes Absolute Auto 1.3 X10*3/uL (1.2-4.9); Lymphocytes Percent Auto 11.8 % (20-40); Mean Corpuscular HGB Conc 32.2 g/dl (31.0-36.0); Mean Corpuscular Hemoglobin 30.5 pg (27.0-33.0); Mean Platelet Volume 9.7 fL (9.4-12.4); Monocytes Absolute Auto 1.2 X10*3/uL (0.1-1.2); Monocytes Percent Auto 10.5 % (2-11); Neutrophils Absolute Auto 7.9 x10*3/uL (2.0-8.3); Neutrophils Percent Auto 71.2 % (45-73); Platelet Count 230 X10*3/uL (160-400); Red Blood Count 2.98 X10*6/uL (4.60-5.80); Red Cell Distribution Width 14.3 % (11.0-16.0); White Blood Count 11.1 X10*3/uL (4.8-10.8)
[2024-08-21 08:03] LABS: Anion Gap 12 (12-20); Blood Urea Nitrogen 17 mg/dL (9-16); Calcium 8.3 mg/dL (8.4-10.2); Carbon Dioxide 26 mmol/L (22-29); Chloride 112 mmol/L (96-108); Creatinine Clr Calc Pharmacy 62.2; Estimated Glomerular Filt Rate 52; Glucose Random 89 mg/dL (60-115); Magnesium 1.7 mg/dL (1.6-2.6); Phosphorus 2.4 mg/dL (2.7-4.5); Sodium 146 mmol/L (135-145)
[2024-08-21] MEDS: Aspirin Enteric Coated 81 MG TABLET.DR PO (09:00)
[2024-08-21] MEDS: 0.9 % Sodium Chloride Flush 3 ML SYRINGE IVFLUSH ×2 (09:01→15:46)
[2024-08-21] MEDS: Multivitamin TABLET 1 TAB PO (09:01)
[2024-08-21] MEDS: Atorvastatin Calcium 10 MG TABLET PO (09:01)
--- NOTE | 2024-08-21 15:08 | HO.PM.IMPN ---
Subjective Subjective Date of Service: 08/21/24 Interval History: Doing extremely well day 1 out of ICU. Markedly improved Review of Systems Denies chest pain Denies SOB Denies N/V/D Denies fever/chills Physical Exam Vital Signs: Vital Signs: Last Vital Signs Temp 98.6 F 08/21/24 10:53 Pulse 79 08/21/24 10:53 Resp 20 08/21/24 10:53 BP 120/57 L 08/21/24 10:53 Pulse Ox 95 08/21/24 10:53 O2 Del Method Nasal Cannula 08/21/24 10:53 O2 Flow Rate 2 08/21/24 10:53 BMI result Body Mass Index 46.1 Const: Other: Awake/alerrt NAD Resp: Other: Clear to auscultation bilat; no rales/rhonchi/wheezes Cardio: Other: NO S4; + S1/S2;no S3 M/R/G GI: Other: obese/soft non-tender with NABS x 4 quads Skin: Other: Marked improvement; minimal erythema over previous areas Extrem: Other: bilat edema Objective Data Active Medications Acetaminophen (Acetaminophen 325 Mg Tablet) 650 mg PO Q6H PRN PRN Reason: Pain, Mild (Pain Scale 1-3), fever or headache Aspirin (Aspirin Enteric Coated 81 Mg Tablet.) 81 mg PO DAILY [facility] Last Admin: 08/21/24 09:00 Dose: 81 mg Documented By: ALLY Atorvastatin Calcium (Atorvastatin Calcium 10 Mg Tablet) 10 mg PO DAILY [facility] Last Admin: 08/21/24 09:01 Dose: 10 mg Documented By: ALLY Heparin Sodium (Porcine) (Heparin Sodium,Porcine 5,000 Unit/Ml Vial) 5,000 unit SUBCUT Q8H [facility] Last Admin: 08/21/24 09:00 Dose: 5,000 unit Documented By: ALLY Piperacillin Sod/Tazobactam (Sod 2.25 gm/ Sodium Chloride) 50 mls @ 100 mls/hr IV Q6H [facility] Last Infusion: 08/21/24 13:32 Dose: Infused Documented By: ALLY Fluconazole 100 mg/ IV (Miscellaneous Supplies) 50 mls @ 50 mls/hr IV Q24H [facility] Last Infusion: 08/20/24 20:35 Dose: Infused Documented By: MAGDALENA Vancomycin HCl 1,500 mg/ (Sodium Chloride) 500 mls @ 333.333 mls/hr IV Q24H [facility] Last Infusion: 08/20/24 22:04 Dose: Infused Documented By: MAGDALENA Levothyroxine Sodium (Levothyroxine Sodium 100 Mcg Tablet) 100 mcg PO DAILY@0600 [facility] Last Admin: 08/21/24 05:06 Dose: 100 mcg Documented By: MAGDALENA Morphine Sulfate (Morphine Sulfate 2 Mg/Ml Cartridge) 2 mg IVPUSH Q3H PRN; Protocol PRN Reason: Pain, Moderate(Pain Scale 4-6) Multivitamins/Vitamin C (Multivitamin Tablet) 1 tab PO DAILY [facility] Last Admin: 08/21/24 09:01 Dose: 1 tab Documented By: ALLY Nystatin (Nystatin Cream 15 Gm Tube) 1 appl TOPICAL BID [facility]; Protocol Last Admin: 08/21/24 13:10 Dose: 1 appl Documented By: ALLY Pharmacy Consult (Consult Rx Vancomycin Dosing) 1 each MISCELLANE DAILY PRN PRN Reason: Consult order Sodium Chloride (0.9 % Sodium Chloride Flush 3 Ml Syringe) 3 ml IVFLUSH QSHIFT [facility] Last Admin: 08/21/24 09:01 Dose: 3 ml Documented By: ALLY Labs 08/21/24 06:48 08/21/24 06:48 Labs: Laboratory Results - last 24 hr 08/18/24 08/20/24 08/21/24 11:56 17:44 06:48 MCV 95.0 MCH 30.5 MCHC 32.2 RDW 14.3 Plt Count 230 MPV 9.7 Immature Gran % (Auto) 0.9 H Neut % (Auto) 71.2 Lymph % (Auto) 11.8 L [place] % (Auto) 10.5 Eos % (Auto) 4.7 H Baso % (Auto) 0.9 Lymph # (Auto) 1.3 [place] # (Auto) 1.2 Eos # (Auto) 0.5 H Baso # (Auto) 0.1 Abs Immat Gran (auto) 0.10 H Absolute Neuts (auto) 7.9 Absolute Nucleated RBC 0.000 Nucleated RBC % (auto) 0.0 Anion Gap 12 Estim Creat Clear Calc 62.2 Estimated GFR 52 Random Glucose 89 Calcium 8.3 L D Phosphorus 2.4 L Magnesium 1.7 Abnorm Protein Band 1 TNP Abnorm Protein Band 2 TNP Abnorm Protein Band 3 TNP Random Vancomycin 6.3 L Microbiology Microbiology Results: Microbiology 08/18/24 18:21 Blood Culture - Preliminary Blood - Venous No growth after 48 hours. 08/18/24 18:21 Blood Culture - Preliminary Blood - Venous No growth after 48 hours. Assessment and Plan (1) Severe sepsis: Status: Acute (2) Cellulitis: Status: Acute (3) SANJEEV (acute kidney injury): Status: Acute Plan 74 yo male presents with worsen lower extremity edema and SANJEEV. Noted to have extensive thigh and perineal fungal cellulitis. Lasix drip recommend by renal but pts BP would note tolerate. 1. Severe sepsis secondary to diffuse cellultis -BC x2 negative -vancomycin/zosyn (renally dosed)..fluconazole IV....(4) -consider switching to orals in a.m. 2. SANJEEV -normalize secondary to volume repletion -follow renals/divalents 3.CHronic diastolic heart failure -stable and well compensated -continue current therapies 4. Hypertension -acceptable control off therapies -add back when clinically appropriate Full code Lovenox Quality Stroke Does the patient have a stroke diagnosis?: No VTE Prior VTE?: No VTE Risk Level:: Medical - moderate - high VTE Device Contraindication: Treatment Not Indicated VTE Drug Contraindication: N/A - Med Ordered
[2024-08-21] MEDS: Enoxaparin Sodium 40 MG/0.4 ML SYRINGE SUBCUT (15:45)
[2024-08-21 16:13] LABS: Glucose, Whole Blood 128 mg/dL (60-115)
[2024-08-21] MEDS: Fluconazole in NaCl,Iso-Osm 100 MG in Container,Empty 0 ML 50 MG IV (18:27)
[2024-08-21 18:44] LABS: Vancomycin Random 9.3 mcg/mL (15-20)
[2024-08-21] MEDS: vancomycin HCL 1,500 MG in 0.9 % Sodium Chloride 500 ML 333.33 MG IV (20:04)
[2024-08-22 03:30] VITALS: BP 166/72; PULSE 80; RESP 17; TEMP 36; O2SAT 94
[2024-08-22] MEDS: Piperacillin Sodium/Tazobactam 2.25 GM in 0.9 % Sodium Chloride 50 ML IV ×3 (05:04→18:41)
[2024-08-22] MEDS: Levothyroxine Sodium 100 MCG TABLET PO (05:04)
[2024-08-22 06:00] VITALS: BMI 46.4
[2024-08-22 06:33] LABS: MANUAL DIFF FLAG NO
[2024-08-22 06:43] LABS: Basophils Absolute Auto 0.1 X10*3/uL (0.0-0.2); Basophils Percent Auto 0.9 % (0-2); Eosinophils Absolute Auto 0.8 X10*3/uL (0.0-0.4); Hematocrit 29.6 % (42.0-52.0); Hemoglobin 9.6 g/dl (14.0-18.0); Imm Gran Abs Auto 0.11 X10*3/uL (0.00-0.03); Lymphocytes Percent Auto 9.2 % (20-40); Mean Corpuscular HGB Conc 32.4 g/dl (31.0-36.0); Mean Corpuscular Volume 95.5 fL (80.0-98.0); Mean Platelet Volume 9.4 fL (9.4-12.4); Monocytes Absolute Auto 1.1 X10*3/uL (0.1-1.2); Monocytes Percent Auto 9.7 % (2-11); Neutrophils Absolute Auto 8.2 x10*3/uL (2.0-8.3); Neutrophils Percent Auto 72.2 % (45-73); Platelet Count 251 X10*3/uL (160-400); Red Cell Distribution Width 14.1 % (11.0-16.0); White Blood Count 11.4 X10*3/uL (4.8-10.8)
[2024-08-22 06:55] LABS: Anion Gap 13 (12-20); Blood Urea Nitrogen 13 mg/dL (9-16); Calcium 8.3 mg/dL (8.4-10.2); Carbon Dioxide 25 mmol/L (22-29); Chloride 109 mmol/L (96-108); Creatinine Clr Calc Pharmacy 72.2; Estimated Glomerular Filt Rate > 60; Glucose Random 97 mg/dL (60-115); Magnesium 1.6 mg/dL (1.6-2.6); Phosphorus 2.5 mg/dL (2.7-4.5); Potassium 3.6 mmol/L (3.3-5.1); Sodium 143 mmol/L (135-145)
[2024-08-22 07:19] VITALS: BP 151/66; PULSE 78; RESP 16; TEMP 36.9; O2SAT 94
[2024-08-22] MEDS: Atorvastatin Calcium 10 MG TABLET PO (09:07)
[2024-08-22] MEDS: 0.9 % Sodium Chloride Flush 3 ML SYRINGE IVFLUSH ×3 (09:07→21:43)
[2024-08-22] MEDS: Multivitamin TABLET 1 TAB PO (09:07)
[2024-08-22] MEDS: Aspirin Enteric Coated 81 MG TABLET.DR PO (09:08)
[2024-08-22] MEDS: Nystatin Cream 15 GM TUBE 1 APPL TOPICAL ×2 (09:09→21:44)
[2024-08-22] MEDS: Morphine Sulfate 2 MG/ML CARTRIDGE IVPUSH (10:23)
[2024-08-22 11:35] VITALS: BP 118/58; PULSE 75; RESP 18; TEMP 36.8; O2SAT 95
--- NOTE | 2024-08-22 13:50 | P.PNIM_ITS ---
Subjective Subjective Date of Service: 08/22/24 Interval History: Continues to improve. No acute issues; states pain last to posterior thighs Review of Systems Denies chest pain Denies SOB Denies N/V/D Denies fever/chills Physical Exam 2 Vital Signs: Vital Signs: Last Vital Signs Temp 98.2 F 08/22/24 11:35 Pulse 75 08/22/24 11:35 Resp 18 08/22/24 11:35 BP 118/58 L 08/22/24 11:35 Pulse Ox 95 08/22/24 11:35 O2 Del Method Nasal Cannula 08/22/24 11:35 O2 Flow Rate 2 08/22/24 11:35 BMI result Body Mass Index 46.4 Const: Other: Awake/alerrt NAD Resp: Other: Clear to auscultation bilat; no rales/rhonchi/wheezes Cardio: Other: NO S4; + S1/S2;no S3 M/R/G GI: Other: obese/soft non-tender with NABS x 4 quads Skin: Other: Marked improvement; minimal erythema over previous areas Extrem: Other: bilat edema Objective Data Active Medications Acetaminophen (Acetaminophen 325 Mg Tablet) 650 mg PO Q6H PRN PRN Reason: Pain, Mild (Pain Scale 1-3), fever or headache Aspirin (Aspirin Enteric Coated 81 Mg Tablet.) 81 mg PO DAILY [facility] Last Admin: 08/22/24 09:08 Dose: 81 mg Documented By: ALLY Atorvastatin Calcium (Atorvastatin Calcium 10 Mg Tablet) 10 mg PO DAILY [facility] Last Admin: 08/22/24 09:07 Dose: 10 mg Documented By: ALLY Enoxaparin Sodium (Enoxaparin Sodium 40 Mg/0.4 Ml Syringe) 40 mg SUBCUT Q24H [facility] Last Admin: 08/21/24 15:45 Dose: 40 mg Documented By: ALLY Piperacillin Sod/Tazobactam (Sod 2.25 gm/ Sodium Chloride) 50 mls @ 100 mls/hr IV Q6H [facility] Last Admin: 08/22/24 12:26 Dose: 100 mls/hr Documented By: ALLY Fluconazole 100 mg/ IV (Miscellaneous Supplies) 50 mls @ 50 mls/hr IV Q24H [facility] Last Infusion: 08/21/24 20:12 Dose: Infused Documented By: MAGDALENA Vancomycin HCl 1,500 mg/ (Sodium Chloride) 500 mls @ 333.333 mls/hr IV Q24H [facility] Last Infusion: 08/21/24 21:45 Dose: Infused Documented By: MAGDALENA Levothyroxine Sodium (Levothyroxine Sodium 100 Mcg Tablet) 100 mcg PO DAILY@0600 [facility] Last Admin: 08/22/24 05:04 Dose: 100 mcg Documented By: MAGDALENA Morphine Sulfate (Morphine Sulfate 2 Mg/Ml Cartridge) 2 mg IVPUSH Q3H PRN; Protocol PRN Reason: Pain, Moderate(Pain Scale 4-6) Last Admin: 08/22/24 10:23 Dose: 2 mg Documented By: ALLY Multivitamins/Vitamin C (Multivitamin Tablet) 1 tab PO DAILY [facility] Last Admin: 08/22/24 09:07 Dose: 1 tab Documented By: ALLY Nystatin (Nystatin Cream 15 Gm Tube) 1 appl TOPICAL BID [facility]; Protocol Last Admin: 08/22/24 09:09 Dose: 1 appl Documented By: ALLY Pharmacy Consult (Consult Rx Vancomycin Dosing) 1 each MISCELLANE DAILY PRN PRN Reason: Consult order Sodium Chloride (0.9 % Sodium Chloride Flush 3 Ml Syringe) 3 ml IVFLUSH QSHIFT [facility] Last Admin: 08/22/24 09:07 Dose: 3 ml Documented By: ALLY Labs 08/22/24 06:12 08/22/24 06:12 Labs: Laboratory Results - last 24 hr 08/21/24 08/21/24 08/22/24 16:09 18:06 06:12 MCV 95.5 MCH 31.0 MCHC 32.4 RDW 14.1 Plt Count 251 MPV 9.4 Immature Gran % (Auto) 1.0 H Neut % (Auto) 72.2 Lymph % (Auto) 9.2 L [place] % (Auto) 9.7 Eos % (Auto) 7.0 H Baso % (Auto) 0.9 Lymph # (Auto) 1.0 L [place] # (Auto) 1.1 Eos # (Auto) 0.8 H Baso # (Auto) 0.1 Abs Immat Gran (auto) 0.11 H Absolute Neuts (auto) 8.2 Absolute Nucleated RBC 0.000 Nucleated RBC % (auto) 0.0 Anion Gap 13 Estim Creat Clear Calc 72.2 Estimated GFR > 60 POC Glucose 128 H Random Glucose 97 Calcium 8.3 L Phosphorus 2.5 L Magnesium 1.6 Random Vancomycin 9.3 L Assessment and Plan (1) Cellulitis: Status: Acute (2) Acute on chronic renal insufficiency: Status: Acute Plan 74 yo male presents with worsen lower extremity edema and SANJEEV. Noted to have extensive thigh and perineal fungal cellulitis. Lasix drip recommend by renal but pts BP would note tolerate. 1. Severe sepsis secondary to diffuse cellultis -BC x2 negative -vancomycin/zosyn (renally dosed)..fluconazole IV....(5) -consider switching to orals in a.m. 2. SANJEEV -normalize secondary to volume repletion -follow renals/divalents 3.CHronic diastolic heart failure -stable and well compensated -continue current therapies 4. Hypertension -acceptable control off therapies -add back when clinically appropriate 5. Fungal dermatitis -dressings as ordered Full code Lovenox Quality Stroke Does the patient have a stroke diagnosis?: No VTE Prior VTE?: No VTE Risk Level:: Medical - moderate - high VTE Device Contraindication: Treatment Not Indicated VTE Drug Contraindication: N/A - Med Ordered
[2024-08-22 15:18] VITALS: BP 143/63; PULSE 78; RESP 15; TEMP 36.4; O2SAT 94
[2024-08-22] MEDS: Enoxaparin Sodium 40 MG/0.4 ML SYRINGE SUBCUT (15:45)
[2024-08-22 18:20] LABS: Vancomycin Random 10.3 mcg/mL (15-20)
--- NOTE | 2024-08-22 18:27 | HE.PHANOTE ---
RE VANCO DOSING CHANGING DOSE TO 1000 Q12 TO HOPEFULLY INCREASE AUC TO OVER 400 AND TROUGH SHOULD HOPEFULLY BE NEAR 13 AT NEXT CHECK 08/23 @1800. RENAL FUNCTION IMPROVING DAILY SO MAY STILL NEED ANOTHER DOSE INCREASE TO ACCOMODATE INCREASING RENAL CLEARANCE.
[2024-08-22 19:34] VITALS: BP 133/61; PULSE 81; RESP 16; TEMP 36.9; O2SAT 93
[2024-08-22] MEDS: Fluconazole in NaCl,Iso-Osm 100 MG in Container,Empty 0 ML 50 MG IV (21:26)
[2024-08-22] MEDS: vancomycin HCL 1,000 MG in 0.9 % Sodium Chloride 250 ML 270 MG IV (21:31)
[2024-08-23] VITALS (8 sets, daily range): BP systolic 123–158; BP diastolic 51–79; PULSE 71–93; RESP 12–20; TEMP 36.3–36.7; O2SAT 91–95
[2024-08-23] MEDS: Piperacillin Sodium/Tazobactam 2.25 GM in 0.9 % Sodium Chloride 50 ML IV (02:41)
[2024-08-23] MEDS: Levothyroxine Sodium 100 MCG TABLET PO (04:52)
[2024-08-23 06:59] LABS: Basophils Absolute Auto 0.1 X10*3/uL (0.0-0.2); Basophils Percent Auto 0.8 % (0-2); Eosinophils Absolute Auto 0.9 X10*3/uL (0.0-0.4); Eosinophils Percent Auto 9.2 % (0-4); Hemoglobin 9.7 g/dl (14.0-18.0); Imm Gran Abs Auto 0.07 X10*3/uL (0.00-0.03); Imm Gran Pct Auto 0.7 % (0.0-0.4); Lymphocytes Absolute Auto 1.3 X10*3/uL (1.2-4.9); Lymphocytes Percent Auto 13.1 % (20-40); MANUAL DIFF FLAG NO; Mean Corpuscular HGB Conc 33.4 g/dl (31.0-36.0); Mean Corpuscular Hemoglobin 31.1 pg (27.0-33.0); Mean Corpuscular Volume 92.9 fL (80.0-98.0); Mean Platelet Volume 9.5 fL (9.4-12.4); Monocytes Absolute Auto 1.1 X10*3/uL (0.1-1.2); Monocytes Percent Auto 11.5 % (2-11); Neutrophils Absolute Auto 6.2 x10*3/uL (2.0-8.3); Neutrophils Percent Auto 64.7 % (45-73); Platelet Count 248 X10*3/uL (160-400); Red Blood Count 3.12 X10*6/uL (4.60-5.80); White Blood Count 9.6 X10*3/uL (4.8-10.8)
[2024-08-23 07:11] LABS: Anion Gap 14 (12-20); Blood Urea Nitrogen 12 mg/dL (9-16); Calcium 8.4 mg/dL (8.4-10.2); Carbon Dioxide 24 mmol/L (22-29); Chloride 110 mmol/L (96-108); Creatinine Clr Calc Pharmacy 77.6; Estimated Glomerular Filt Rate > 60; Glucose Random 93 mg/dL (60-115); Magnesium 1.5 mg/dL (1.6-2.6); Phosphorus 2.5 mg/dL (2.7-4.5); Potassium 3.5 mmol/L (3.3-5.1); Sodium 144 mmol/L (135-145)
[2024-08-23] MEDS: Magnesium Sulfate/H2O 2 GM/50 ML PIGGYBACK IV (08:12)
[2024-08-23] MEDS: Atorvastatin Calcium 10 MG TABLET PO (08:13)
[2024-08-23] MEDS: 0.9 % Sodium Chloride Flush 3 ML SYRINGE IVFLUSH ×2 (08:13→21:41)
[2024-08-23] MEDS: Multivitamin TABLET 1 TAB PO (08:13)
[2024-08-23] MEDS: Aspirin Enteric Coated 81 MG TABLET.DR PO (08:13)
[2024-08-23] MEDS: Magnesium Oxide 400 MG TABLET 800 MG PO (08:13)
[2024-08-23] MEDS: vancomycin HCL 1,000 MG in 0.9 % Sodium Chloride 250 ML 270 MG IV (08:13)
[2024-08-23] MEDS: Nystatin Cream 15 GM TUBE 1 APPL TOPICAL ×2 (08:14→22:00)
--- NOTE | 2024-08-23 08:30 | P.PNNP_ITS ---
Subjective Subjective Date of Service: 08/23/24 Interval history: 74 y/o male with a medical history of CKD, HTN, morbid obesity, diastolic dysfunction with EF 48%. 08/18 presented to ED with difficulty walking, weakness, chronic weeping leg wounds (ongoing since December 2023), reported fall night prior. Nephrology consulted for SANJEEV, lower extremity edema. Pt is followed by Dr Jara as an outpatient. 05/31/24 creatinine 1.60 08/18/24 creatinine 3.31, with fluid rescuscitation has returned to baseline. 08/23/24 creatinine 1.07, GFR>60. pt admitted to ICU 08/19-08/20 for soft blood pressures despite fluid resuscitation, required norepinephrine to maintain BP, renal function began to improve with fluids, transferred back to medicine service 08/21 pt being treated with vanco, zosyn and fluconazole for sepsis secondary to diffuse cellulitis Physical Exam 2 Vital Signs: Vital Signs: Last Vital Signs Temp 97.9 F 08/23/24 07:37 Pulse 77 08/23/24 07:37 Resp 16 08/23/24 07:37 BP 146/70 H 08/23/24 07:37 Pulse Ox 93 08/23/24 07:37 O2 Del Method Room Air 08/23/24 07:37 O2 Flow Rate 2 08/22/24 11:35 BMI result Body Mass Index 46.4 Const: General: no acute distress, alert and awake Neck: Neck: Yes no JVD Resp: Effort & Inspection: normal respiratory effort and able to speak in complete sentences Auscultation: clear to auscultation bilaterally Cardio: Jugular venous distension: no JVD Rate: regular rate Rhythm: r egular rhythm Heart sounds: S1 normal heart sound present, S2 normal heart sound present and Murmur heart sound present GI: Palpation (GI): Soft to palpation and nontender Skin: Rashes: other (cellulitis lower extremities) Extrem: General: Yes edema (+1 BLE edema, pitting) Objective Data Labs 08/23/24 06:10 08/23/24 06:10 Labs: Laboratory Results - last 24 hr 08/22/24 08/23/24 17:57 06:10 WBC 9.6 RBC 3.12 L Hgb 9.7 L Hct 29.0 L MCV 92.9 MCH 31.1 MCHC 33.4 RDW 14.0 Plt Count 248 MPV 9.5 Immature Gran % (Auto) 0.7 H Neut % (Auto) 64.7 Lymph % (Auto) 13.1 L [place] % (Auto) 11.5 H Eos % (Auto) 9.2 H Baso % (Auto) 0.8 Lymph # (Auto) 1.3 [place] # (Auto) 1.1 Eos # (Auto) 0.9 H Baso # (Auto) 0.1 Abs Immat Gran (auto) 0.07 H Absolute Neuts (auto) 6.2 Absolute Nucleated RBC 0.000 Nucleated RBC % (auto) 0.0 Sodium 144 Potassium 3.5 Chloride 110 H Carbon Dioxide 24 Anion Gap 14 BUN 12 Creatinine 1.07 Estim Creat Clear Calc 77.6 Estimated GFR > 60 Random Glucose 93 Calcium 8.4 Phosphorus 2.5 L Magnesium 1.5 L Random Vancomycin 10.3 L Microbiology Microbiology Results: Microbiology 08/18/24 18:21 Blood - Venous Blood Culture - Preliminary No growth after 48 hours. 08/18/24 18:21 Blood - Venous Blood Culture - Preliminary No growth after 48 hours. Procedures Date of Service Date of Service: 08/23/24 Assessment & Plan Assessment and plan (1) Acute on chronic renal insufficiency: Status: Acute (2) Cellulitis: Status: Acute (3) SANJEEV (acute kidney injury): Status: Acute Plan SANJEEV secondary to tubular injury from intravascular hypovolemia in setting of ACEi and diuretic use Improved and returned to baseline with fluid resuscitation will check vanco trough in a.m. recommend continued monitoring of renal function and electrolytes daily, regular blood pressure checks blood pressures acceptable at this time continue supportive care Discussed with Dr Jara Time Spent With Patient Time: Total time managing care of this patient today ____ minutes. Progress Note: Quality Stroke Does the patient have a stroke diagnosis?: No
[2024-08-23] MEDS: Amoxicillin/Potassium Clav 875 MG TABLET PO ×2 (11:02→21:41)
[2024-08-23] MEDS: Doxycycline Monohydrate 100 MG CAPSULE PO ×2 (11:02→21:41)
[2024-08-23] MEDS: Furosemide 20 MG TABLET PO (11:02)
--- NOTE | 2024-08-23 12:27 | HO.PM.IMPN ---
Subjective Subjective Date of Service: 08/23/24 Interval History: seen and evaluated feels better overall no fever or chills Cr improving Review of Systems Review of Systems: Yes all other systems are reviewed and are negative Physical Exam Vital Signs: Vital Signs: Last Vital Signs Temp 97.7 F 08/23/24 12:00 Pulse 93 08/23/24 12:00 Resp 12 08/23/24 12:00 BP 131/53 L 08/23/24 12:00 Pulse Ox 95 08/23/24 12:00 O2 Del Method Room Air 08/23/24 12:00 O2 Flow Rate 2 08/22/24 11:35 BMI result Body Mass Index 46.4 Const: Other: Constitutional : Awake, interactive, not in distress Neck : Normal inspection, Supple Cardiovascular : RRR, no JVP, no lower extremity edema Respiratory : good bilateral air entry, no crackles, wheezes or rhonchi Gastrointestinal: soft, lax, Normal bowel sounds, Non tender Skin : Warm, Dry, lower extremities wounds with no erythema and swelling down, Thigh wound Neurological : Alert & oriented x3, No focal deficit Objective Data Active Medications Acetaminophen (Acetaminophen 325 Mg Tablet) 650 mg PO Q6H PRN PRN Reason: Pain, Mild (Pain Scale 1-3), fever or headache Amoxicillin/Clavulanate Potassium (Amoxicillin/Potassium Clav 875 Mg Tablet) 875 mg PO Q12H [facility] Last Admin: 08/23/24 11:02 Dose: 875 mg Documented By: DANICA Aspirin (Aspirin Enteric Coated 81 Mg Tablet.) 81 mg PO DAILY [facility] Last Admin: 08/23/24 08:13 Dose: 81 mg Documented By: DANICA Atorvastatin Calcium (Atorvastatin Calcium 10 Mg Tablet) 10 mg PO DAILY [facility] Last Admin: 08/23/24 08:13 Dose: 10 mg Documented By: DANICA Doxycycline Monohydrate (Doxycycline Monohydrate 100 Mg Capsule) 100 mg PO Q12H [facility] Last Admin: 08/23/24 11:02 Dose: 100 mg Documented By: DANICA Enoxaparin Sodium (Enoxaparin Sodium 40 Mg/0.4 Ml Syringe) 40 mg SUBCUT Q24H [facility] Last Admin: 08/22/24 15:45 Dose: 40 mg Documented By: ALLY Fluconazole (Fluconazole 100 Mg Tablet) 100 mg PO DAILY [facility] Furosemide (Furosemide 20 Mg Tablet) 20 mg PO DAILY [facility]; Protocol Last Admin: 08/23/24 11:02 Dose: 20 mg Documented By: DANICA Vancomycin HCl 1,000 mg/ (Sodium Chloride) 270 mls @ 270 mls/hr IV Q12H [facility] Last Infusion: 08/23/24 10:16 Dose: Infused Documented By: DANICA Levothyroxine Sodium (Levothyroxine Sodium 100 Mcg Tablet) 100 mcg PO DAILY@0600 [facility] Last Admin: 08/23/24 04:52 Dose: 100 mcg Documented By: SHERYL Magnesium Oxide (Magnesium Oxide 400 Mg Tablet) 800 mg PO DAILY [facility] Last Admin: 08/23/24 08:13 Dose: 800 mg Documented By: DANICA Morphine Sulfate (Morphine Sulfate 2 Mg/Ml Cartridge) 2 mg IVPUSH Q3H PRN; Protocol PRN Reason: Pain, Moderate(Pain Scale 4-6) Last Admin: 08/22/24 10:23 Dose: 2 mg Documented By: ALLY Multivitamins/Vitamin C (Multivitamin Tablet) 1 tab PO DAILY [facility] Last Admin: 08/23/24 08:13 Dose: 1 tab Documented By: DANICA Nystatin (Nystatin Cream 15 Gm Tube) 1 appl TOPICAL BID [facility]; Protocol Last Admin: 08/23/24 08:14 Dose: 1 appl Documented By: DANICA Sodium Chloride (0.9 % Sodium Chloride Flush 3 Ml Syringe) 3 ml IVFLUSH QSHIFT [facility] Last Admin: 08/23/24 08:13 Dose: 3 ml Documented By: DANICA Labs 08/23/24 06:10 08/23/24 06:10 Labs: Laboratory Results - last 24 hr 08/22/24 08/23/24 17:57 06:10 MCV 92.9 MCH 31.1 MCHC 33.4 RDW 14.0 Plt Count 248 MPV 9.5 Immature Gran % (Auto) 0.7 H Neut % (Auto) 64.7 Lymph % (Auto) 13.1 L [place] % (Auto) 11.5 H Eos % (Auto) 9.2 H Baso % (Auto) 0.8 Lymph # (Auto) 1.3 [place] # (Auto) 1.1 Eos # (Auto) 0.9 H Baso # (Auto) 0.1 Abs Immat Gran (auto) 0.07 H Absolute Neuts (auto) 6.2 Absolute Nucleated RBC 0.000 Nucleated RBC % (auto) 0.0 Anion Gap 14 Estim Creat Clear Calc 77.6 Estimated GFR > 60 Random Glucose 93 Calcium 8.4 Phosphorus 2.5 L Magnesium 1.5 L Random Vancomycin 10.3 L Assessment and Plan (1) Cellulitis: Status: Acute (2) Acute on chronic renal insufficiency: Status: Acute (3) Severe sepsis: Status: Acute Plan 74 yo male presents with worsen lower extremity edema and SANJEEV. Noted to have extensive thigh and perineal fungal cellulitis. Lasix drip recommend by renal but pts BP would note tolerate. Severe sepsis secondary to diffuse cellultis BC x2 negative dc vancomycin/zosyn (renally dosed) and fluconazole IV PO Doxy and Augmentin PO Fluconazole SANJEEV normalize secondary to volume repletion follow renals/divalents CHronic diastolic heart failure stable and well compensated continue current therapies Hypertension add home medications back as appropriate Fungal dermatitis dressings as ordered PHysical deconditioning PT rec SNF Full code Lovenox The patient will need overnight stay for treatment of LE cellulitis pending clinical improvement and SNF placement Quality Stroke Does the patient have a stroke diagnosis?: No VTE Prior VTE?: No VTE Risk Level:: Medical - moderate - high VTE Device Contraindication: Treatment Not Indicated VTE Drug Contraindication: N/A - Med Ordered
--- NOTE | 2024-08-23 12:40 | MHC.CM.PN ---
IMM 08/23/24 DELIVERED TO BEDSIDE, PT'S PRESENT, PT OFFERED A STR BED AT [facility], PT ACCEPTING AND FACILITY WILL SUBMIT FOR AUTH, PT WILL NEED [facility] FOR TRANSPORT D/T [employer] INSURANCE PLAN.
--- NOTE | 2024-08-23 12:42 | HO.WOUND ---
Wound Consult: Initial 74yr old male admitted to [facility] on 08[place]18/24 - See progress notes and H&P for detailed history.? Wound consult placed for Leg wounds.? Patient agreeable to assessment and photo documentation.? Patient reports the swelling in his legs has significantly come down, patient educated on the importance of lower leg elevation. Patient will likely benefit from Compression therapy - recommend outpt followup with OT for Lymphedema treatment. Of note the direct care nurse had already completed the lower leg dressings we discussed and photos were reviewed. She noted old dressing stuck to wound bed despite soaking with saline, which caused some bleeding. Left Leg Right Leg Right Leg Left Leg Bilateral Lower Legs Etiology: ??Venous Wounds Measurements: various sizes of wounds Wound Bed: red clean viable tissue Drainage / Odor: no odor sanginous drainage Edges: ? irregular Isabel wound: dry flaking tissue, red pink eryrthema improving per pt statement Pain: tenderness reported Goals of Treatment: ? Moist wound healing with xeroform and lower leg elevation Coccyx and Buttock Posterior thighs Buttock, Intergluteal, Posterior Thighs and Abdominal Skin Fold Etiology: ?MASD (Moisture Associated Skin Damage) Wound Bed: various sized scattered areas of partial and full thicness tissue loss, scant slough noted to some wound beds, red pink light purple blanchable tissue Drainage / Odor: no odor scant drainage Edges: ? irregular and attached Isabel wound: ?Intact - No Induration, Fluctuance or Warmth noted Pain: Tenderness reported Goals of Treatment: Barrier cream to protect from moisture and friction - may use interdry in Abdominal skin folds Recommendations: 1. Turn and Reposition every 2 hours and as needed for patient comfort.? Use pillows or wedges to support off loading positions. 2. Off Load all bony prominences with use of pillows and heel boots if needed.? Apply Preventative foams where needed. ? 3. Monitor for incontinence and moisture control, use barrier creams when needed for prevention and treatment. 4. Provide adequate and supplemental nutrition.? 5. Continue low air loss mattress. 6. When applicable maintain blood glucose levels per Providers order. 7. Abdominal skin folds - Cleanse well, dry well Tuck Interdry AG Sheet into skin fold to wick and translocate moisture away from skin fold.? Be sure to leave at least 2 inch of fabric exposed outside of skin fold.? Change after 5 days or when soiled. 8. Coccyx, Buttock and Posterior Thighs - Off Load Pressure - Cleanse with PH balance spray or wipes, pat dry. ?Apply thin layer of Triad to wound bed - only pat and dab no scrub and rub when soiling occurs. Reapply thin layer PRN after each episode of incontinence. 9. Bilateral Lower Legs - Elevate lower legs off of surface of bed with use of pillows.? Cleanse with Rivas spray,, Pat dry.? Apply vaseline to both legs, apply layer of Xeroform to open wound beds secure with ABD pad, gauze wrap and tape.? Change Daily. Patient should follow up outpt with OT for Lymphedema and compression therapy.? [facility] [address] [place] [id number] . Re-consult wound care Nurse for wound deterioration or wound changes.
[2024-08-23] MEDS: Enoxaparin Sodium 40 MG/0.4 ML SYRINGE SUBCUT (15:57)
[2024-08-23] MEDS: Acetaminophen 325 MG TABLET 650 MG PO (18:15)
[2024-08-24 03:03] VITALS: BP 160/63; PULSE 75; RESP 20; TEMP 36.5; O2SAT 94
[2024-08-24] MEDS: Levothyroxine Sodium 100 MCG TABLET PO (04:49)
[2024-08-24 06:00] VITALS: BMI 46.5
[2024-08-24 07:07] VITALS: BP 150/66; PULSE 76; RESP 18; TEMP 36.1; O2SAT 95
[2024-08-24 08:04] LABS: MANUAL DIFF FLAG NO
[2024-08-24 08:10] LABS: Basophils Absolute Auto 0.1 X10*3/uL (0.0-0.2); Basophils Percent Auto 0.6 % (0-2); Eosinophils Percent Auto 10.3 % (0-4); Hematocrit 29.1 % (42.0-52.0); Hemoglobin 9.6 g/dl (14.0-18.0); Imm Gran Abs Auto 0.09 X10*3/uL (0.00-0.03); Imm Gran Pct Auto 0.9 % (0.0-0.4); Lymphocytes Absolute Auto 1.1 X10*3/uL (1.2-4.9); Lymphocytes Percent Auto 10.8 % (20-40); Mean Corpuscular Hemoglobin 30.9 pg (27.0-33.0); Mean Corpuscular Volume 93.6 fL (80.0-98.0); Mean Platelet Volume 9.5 fL (9.4-12.4); Monocytes Absolute Auto 1.1 X10*3/uL (0.1-1.2); Monocytes Percent Auto 11.3 % (2-11); Neutrophils Absolute Auto 6.4 x10*3/uL (2.0-8.3); Neutrophils Percent Auto 66.1 % (45-73); Platelet Count 250 X10*3/uL (160-400); Red Blood Count 3.11 X10*6/uL (4.60-5.80); Red Cell Distribution Width 13.8 % (11.0-16.0); White Blood Count 9.7 X10*3/uL (4.8-10.8)
[2024-08-24 08:22] LABS: Vancomycin Trough 13.1 mcg/mL (10.0-20.0)
[2024-08-24 08:25] LABS: Anion Gap 12 (12-20); Blood Urea Nitrogen 14 mg/dL (9-16); Calcium 8.5 mg/dL (8.4-10.2); Carbon Dioxide 28 mmol/L (22-29); Chloride 106 mmol/L (96-108); Creatinine Clr Calc Pharmacy 55.7; Estimated Glomerular Filt Rate 46; Glucose Random 88 mg/dL (60-115); Magnesium 1.6 mg/dL (1.6-2.6); Phosphorus 2.8 mg/dL (2.7-4.5); Potassium 3.3 mmol/L (3.3-5.1); Sodium 143 mmol/L (135-145)
--- NOTE | 2024-08-24 08:37 | P.PNNP_ITS ---
Subjective Subjective Date of Service: 08/24/24 Interval history: 74 y/o male with a medical history of CKD, HTN, morbid obesity, diastolic dysfunction with EF 48%. 08/18 presented to ED with difficulty walking, weakness, chronic weeping leg wounds (ongoing since December 2023), reported fall night prior. Nephrology consulted for SANJEEV, lower extremity edema. Pt is followed by Dr Jara as an outpatient. 05/31/24 creatinine 1.60 08/18/24 creatinine 3.31, with fluid resuscitation has returned to baseline. 08/23/24 creatinine 1.07, GFR>60; creatinine up to 1.49 today; 08/22 had SBP drop from 160s to 118 pt admitted to ICU 08/19-08/20 for soft blood pressures despite fluid resuscitation, required norepinephrine to maintain BP, renal function began to improve with fluids, transferred back to medicine service 08/21 has been receiving vancomycin, received 1000mg IV last 08/22; vanco trough normal 123 a.m. pt now being treated with doxycycline, and fluconazole for diffuse cellulitis Physical Exam 2 Vital Signs: Vital Signs: Last Vital Signs Temp 97.0 F 08/24/24 07:07 Pulse 76 08/24/24 07:07 Resp 18 08/24/24 07:07 BP 150/66 H 08/24/24 07:07 Pulse Ox 95 08/24/24 07:07 O2 Del Method Room Air 08/24/24 07:07 O2 Flow Rate 2 08/22/24 11:35 BMI result Body Mass Index 46.5 Const: General: no acute distress, alert and awake Neck: Neck: Yes no JVD Resp: Effort & Inspection: normal respiratory effort and able to speak in complete sentences Auscultation: clear to auscultation bilaterally Cardio: Jugular venous distension: no JVD Rate: regular rate Rhythm: r egular rhythm Heart sounds: S1 normal heart sound present, S2 normal heart sound present and Murmur heart sound present GI: Palpation (GI): Soft to palpation and nontender Skin: Rashes: other (cellulitis lower extremities) Extrem: General: Yes edema (+1 BLE edema, pitting) Objective Data Labs 08/24/24 07:32 08/24/24 07:32 Labs: Laboratory Results - last 24 hr 08/23/24 08/24/24 06:10 07:32 WBC 9.7 RBC 3.11 L Hgb 9.6 L Hct 29.1 L MCV 93.6 MCH 30.9 MCHC 33.0 RDW 13.8 Plt Count 250 MPV 9.5 Immature Gran % (Auto) 0.9 H Neut % (Auto) 66.1 Lymph % (Auto) 10.8 L [place] % (Auto) 11.3 H Eos % (Auto) 10.3 H Baso % (Auto) 0.6 Lymph # (Auto) 1.1 L [place] # (Auto) 1.1 Eos # (Auto) 1.0 H Baso # (Auto) 0.1 Abs Immat Gran (auto) 0.09 H Absolute Neuts (auto) 6.4 Absolute Nucleated RBC 0.000 Nucleated RBC % (auto) 0.0 Sodium 143 Potassium 3.3 Chloride 106 Carbon Dioxide 28 Anion Gap 12 BUN 14 Creatinine 1.49 H Estim Creat Clear Calc 55.7 Estimated GFR 46 Random Glucose 88 Calcium 8.5 Phosphorus 2.8 Magnesium 1.6 Vancomycin Trough 13.1 Random Vancomycin Cancelled Microbiology Microbiology Results: Microbiology 08/18/24 18:21 Blood - Venous Blood Culture - Final No growth after 5 days. 08/18/24 18:21 Blood - Venous Blood Culture - Final No growth after 5 days. Procedures Date of Service Date of Service: 08/24/24 Assessment & Plan Assessment and plan (1) Acute on chronic renal insufficiency: Status: Acute (2) Cellulitis: Status: Acute (3) SANJEEV (acute kidney injury): Status: Acute Plan SANJEEV secondary to tubular injury from intravascular hypovolemia in setting of ACEi and diuretic use Improved and returned to baseline with fluid resuscitation second SANJEEV 08/24/24 due to relative hypotension (SBP dropped from 150s/160s to 118 on 08/22), expect improvement in coming days recommend continue to hold outpatient losartan until patient's creatinine returns to baseline will follow up with nephrology outpatient for continued management, ok for discharge from renal standpoint Discussed with Dr Piper Time Spent With Patient Time: Total time managing care of this patient today ____ minutes. Progress Note: Quality Stroke Does the patient have a stroke diagnosis?: No
[2024-08-24] MEDS: Furosemide 20 MG TABLET PO (08:40)
[2024-08-24] MEDS: Amoxicillin/Potassium Clav 875 MG TABLET PO (08:40)
[2024-08-24] MEDS: Atorvastatin Calcium 10 MG TABLET PO (08:40)
[2024-08-24] MEDS: Aspirin Enteric Coated 81 MG TABLET.DR PO (08:40)
[2024-08-24] MEDS: Magnesium Oxide 400 MG TABLET 800 MG PO (08:40)
[2024-08-24] MEDS: Fluconazole 100 MG TABLET PO (08:40)
[2024-08-24] MEDS: Multivitamin TABLET 1 TAB PO (08:40)
[2024-08-24] MEDS: 0.9 % Sodium Chloride Flush 3 ML SYRINGE IVFLUSH (08:42)
[2024-08-24] MEDS: Nystatin Cream 15 GM TUBE 1 APPL TOPICAL (08:45)
--- NOTE | 2024-08-24 09:37 | MHC.CM.PN ---
PT MEDICALLY CLEARED FOR DC TO STR AT [facility], PT AGREEABLE TO 11:45AM DC PLAN, [facility] FOR BLS TRANSPORT D/T [facility] INSURANCE
[2024-08-24] MEDS: Doxycycline Monohydrate 100 MG CAPSULE PO (10:21)
--- NOTE | 2024-08-24 10:57 | P.DS_ITS ---
DS: Providers Provider Date of Service: 08/24/24 Date of admission: 08/18/24 15:26 Date of discharge: 08/24/24 Primary care physician: Ricco Salazar MD Consults: 08/18/24 18:53 Consult to Nephrology Routine Consulting Provider: [facility] Reason for consultation: SANJEEV Has provider been notified: No 08/18/24 21:50 Consult to Wound Care Routine Reason for consultation: cellulitis/dermatitis DS: Diagnosis Discharge Diagnosis (1) Acute on chronic renal insufficiency: Status: Acute (2) Cellulitis: Status: Acute (3) SANJEEV (acute kidney injury): Status: Acute (4) Severe sepsis: Status: Acute (5) Fungal dermatitis: Status: Acute (6) Chronic ulcer of right leg, limited to breakdown of skin: Status: Acute (7) Ulcer of left lower extremity, limited to breakdown of skin: Status: Acute (8) Peripheral edema: Status: Acute (9) Lower extremity edema: Status: Acute (10) Acute retention of urine: Status: Acute DS: Summary Hospital Course Hospital Course: Admission note HPI 74-year-old male with a history of chronic kidney disease, hypertension, morbid obesity, severe diastolic dysfunction with an EF of 48% who presents emergency department for evaluation of I difficulty walking, chronic weeping leg wounds and fall last night. Patient states he has noticed swelling, redness and weeping of his lower extremities since December of 2023. Last night at around 19:00 hours he was walking in his living room when he tripped on a blanket and fell into the sofa. He denies any significant injury from the fall. He states however he has had increased difficulty walking over last 2 weeks which she attributes to swelling in his lower extremities. He denied chest pain, shortness of breath, nausea, vomiting or diarrhea. Patient has been taking Lasix 20 mg once a day since 07/25/2024-this was started by Dr. Rogers. Patient was seen by Dr. Vilchis on 08/04/2024 or lower extremity edema/swelling. He felt that the etiology for his lower extremity swelling was a combination of his obesity and his congestive heart failure. Patient was started on Lasix 20 mg daily. Patient states that he has had increased urinary frequency but he was not restricted the amount of fluid that he has been drinking. Consult placed to Renal who recommended lasix drip. ER unable to place carbone... and placed cath. Pt noted to have what appears to be extensive fungal dermatitis over bilat thighs with posterior sloughing. Pts BP continued in 80-90 systolic range. Drip started however BP's trended downward. Pt has BP<90, severe cellulitis and respiratory rate >20 meeting criteria for severe sepsis. BC x2/Lactic acid/30cc/kg bolus ordered. Hospital course The patient was admitted to the hospital for Severe sepsis secondary to diffuse cellultis with bilateral lower extremities chronic ulcers requiring ICU transfer for Pressors as blood pressure ran too low. He recovered with usage of IV antibiotics of Vancomycin and zosyn (renally dosed) along with fluconazole IV fo r suspected fungal dermatitis. blood cultures remained negative as cellulitis resolved. He was seen by wound care nurse who recommended apply preventing foams, offload bony prominences, use pillows and heel boots and low Air mattress. He will be discharged on PO Doxy and Augmentin along PO Fluconazole. He was noted to have Acute kidney injury on top of CKD3. normalize secondary to volume repletion as he was followed by nephrology team. mild bump noticed on the day of discharge which nephrology will follow as outpatient. He does also have history of CHronic diastolic heart failure with lower extremities chronic edema which has mildly improved but will need further therapy and possible need for pump therapy to help with the edema. For Hypertension he Losartan will be held on time of discharge. to continue Carvedilol and Nifedipine at time of discharge and monitor as outpatient. add home medications back as appropriate For Fungal dermatitis he was placed on Diflucan IV and Nystatin. will be discahrged on PO Diflucan and Nystatin cream. PHysical deconditioning. evaluated by PT who recommended SNF. Had urine retention at [facility]. Placed a carbone catheter that was later removed. He retained again at time of discharge and new carbone placed. Started on Tamsulosin and Finasteride. Voiding trial at facility and to schedule with urology as outpatient. Discharge plan Continue Augmentin and Doxycycline for 5 more days Continue Fluconazole for 5 more days Monitor Blood pressure and repeat kidney function before restarting Losartan on 08/26 Wound care as described Start Tamsulosin and Finasteride for BPH and urine retention , for voiding trial at facility and outpatient follow up with Urology To repeat BMP and follow with nephrology Wound Care recommendations: Abdominal skin folds - Cleanse well, dry well Tuck Interdry AG Sheet into skin fold to wick and translocate moisture away from skin fold.? Be sure to leave at least 2 inch of fabric exposed outside of skin fold.? Change after 5 days or when soiled. Coccyx, Buttock and Posterior Thighs - Off Load Pressure - Cleanse with PH balance spray or wipes, pat dry. ?Apply thin layer of Triad to wound bed - only pat and dab no scrub and rub when soiling occurs. Reapply thin layer PRN after each episode of incontinence. Bilateral Lower Legs - Elevate lower legs off of surface of bed with use of pillows.? Cleanse with Rivas spray,, Pat dry.? Apply vaseline to both legs, apply layer of Xeroform to open wound beds secure with ABD pad, gauze wrap and tape.? Change Daily. Patient should follow up outpt with OT for Lymphedema and compression therapy.? [facility] [place] [address] . Time Attestation Discharge Coordination Time (in mins): 42 Quality: Safe Use of Opioids Does Pt have an Active Cancer Diagnosis on the Problem List?: No Quality: Stroke Does the patient have a stroke diagnosis?: No Physical Exam Vital Signs: Vital Signs: Last Vital Signs Temp 97.0 F 08/24/24 07:07 Pulse 76 08/24/24 07:07 Resp 18 08/24/24 07:07 BP 150/66 H 08/24/24 07:07 Pulse Ox 95 08/24/24 07:07 O2 Del Method Room Air 08/24/24 07:07 O2 Flow Rate 2 08/22/24 11:35 BMI result Body Mass Index 46.5 Const: Other: Constitutional : Awake, interactive, not in distress Neck : Normal inspection, Supple Cardiovascular : RRR, no JVP, no lower extremity edema Respiratory : good bilateral air entry, no crackles, wheezes or rhonchi Gastrointestinal: soft, lax, Normal bowel sounds, Non tender Skin : Warm, Dry, lower extremities wounds with no erythema and swelling down, Thigh wound Neurological : Alert & oriented x3, No focal deficit DS: Data Data Completed and Pending Labs on day of discharge: Laboratory Results - last 24 hr 08/23/24 08/24/24 06:10 07:32 WBC 9.7 RBC 3.11 L Hgb 9.6 L Hct 29.1 L MCV 93.6 MCH 30.9 MCHC 33.0 RDW 13.8 Plt Count 250 MPV 9.5 Immature Gran % (Auto) 0.9 H Neut % (Auto) 66.1 Lymph % (Auto) 10.8 L [place] % (Auto) 11.3 H Eos % (Auto) 10.3 H Baso % (Auto) 0.6 Lymph # (Auto) 1.1 L [place] # (Auto) 1.1 Eos # (Auto) 1.0 H Baso # (Auto) 0.1 Abs Immat Gran (auto) 0.09 H Absolute Neuts (auto) 6.4 Absolute Nucleated RBC 0.000 Nucleated RBC % (auto) 0.0 Sodium 143 Potassium 3.3 Chloride 106 Carbon Dioxide 28 Anion Gap 12 BUN 14 Creatinine 1.49 H Estim Creat Clear Calc 55.7 Estimated GFR 46 Random Glucose 88 Calcium 8.5 Phosphorus 2.8 Magnesium 1.6 Vancomycin Trough 13.1 Random Vancomycin Cancelled Imaging Chest x-ray: Radiologist's impression: ITS Impressions Venous Duplex 08/18/24 10:22 IMPRESSION: No evidence of deep venous thrombosis involving the bilateral lower extremities. Electronically signed by: Jagdish Guevara MD 08/18/2024 11:52 AM [employer] Renal Ultrasound 08/18/24 15:59 IMPRESSION: 1. Multiple right-sided renal stones measuring up to 2.1 cm. No right-sided hydronephrosis. 2. Left kidney not visualized due to overlying bowel gas. Electronically signed by: Yvon Munroe MD 08/19/2024 08:32 AM [employer] Chest X-Ray 08/18/24 19:20 IMPRESSION: Hazy retrocardiac opacity which could represent atelectasis, early infiltrates, or a trace onset of pleural effusion. Electronically signed by: Yvon Munroe MD 08/19/2024 08:32 AM [employer] Discharge Plan Discharge Anticipated Discharge Date/Time: 08/24/24 10:52 Patient Disposition: Xfer SNF Discharge Diagnosis: Cellulitis Acute kidney injury Referrals: [facility] [Outside] - 1 Day (SHORT TERM REHAB) Ricco Salazar MD [Primary Care Provider] - 1 Week Discharge Medications: New fluconazole 100 mg Tablet 100 mg PO DAILY Qty: 5 0RF magnesium oxide 400 mg (241.3 mg magnesium) Tablet 400 mg PO DAILY Qty: 90 0RF doxycycline monohydrate 100 mg Capsule 100 mg PO Q12H Qty: 10 0RF amoxicillin-pot clavulanate 875-125 mg Tablet 1 tab PO Q12H Qty: 10 0RF nystatin 100,000 unit/gram Cream 1 appl topical BID Qty: 30 0RF Protocol: Apply to: Apply to: groin and abdominal folds tamsulosin 0.4 mg capsule 0.4 mg PO DAILY Qty: 90 0RF finasteride 5 mg tablet 5 mg PO DAILY Qty: 90 0RF Continued multivitamin Tablet 1 tab PO DAILY omega 6-epp-kai-fish oil [Fish Oil] 1,000 (120-180) mg Capsule 1 cap PO DAILY levothyroxine 100 mcg tablet 100 mcg PO DAILY@0630 carvedilol 25 mg tablet 25 mg PO BID Rx Instructions: must administer with a meal/food simvastatin 20 mg tablet 20 mg PO DAILY nifedipine 30 mg tablet extended release 24hr 30 mg PO DAILY aspirin [Adult Low Dose Aspirin] 81 mg tablet,delayed release (DR/EC) 81 mg PO DAILY furosemide 20 mg tablet 20 mg PO DAILY Held losartan 50 mg tablet 50 mg PO DAILY Hold Instructions: Monitor Blood pressure and repeat kidney function before restarting on 08/26 Discharge Orders: Discharge Order (Routine); Ordered 08/24/24 Ordered By: Ramona Mandel Diet: Diabetic diet Activity on Discharge: As tolerated Stand Alone Forms: Patient Portal Discharge page Print Language: Irish Other Ambulatory Orders: Basic Metabolic Panel (Routine) Timeframe: 3 Days Facility: [facility] - Location: Laboratory Ordered By: Ramona Mandel Activity Restrictions/Additional Instructions: Topical Wound Care recommendations: Abdominal skin folds - Cleanse well, dry well Tuck Interdry AG Sheet into skin fold to wick and translocate moisture away from skin fold.? Be sure to leave at least 2 inch of fabric exposed outside of skin fold.? Change after 5 days or when soiled. Coccyx, Buttock and Posterior Thighs - Off Load Pressure - Cleanse with PH balance spray or wipes, pat dry. ?Apply thin layer of Triad to wound bed - only pat and dab no scrub and rub when soiling occurs. Reapply thin layer PRN after each episode of incontinence. Bilateral Lower Legs - Elevate lower legs off of surface of bed with use of pillows.? Cleanse with Rivas spray,, Pat dry.? Apply vaseline to both legs, apply layer of Xeroform to open wound beds secure with ABD pad, gauze wrap and tape.? Change Daily. Patient should follow up outpt with OT for Lymphedema and compression therapy.? [facility] [address] [place] [address] . Care Plan Goals: Continue Augmentin and Doxycycline for 5 more days Continue Fluconazole for 5 more days Monitor Blood pressure and repeat kidney function before restarting Losartan on 08/26 Start Tamsulosin and Finasteride for BPH and urine retention , for voiding trial at facility and outpatient follow up with Urology Wound care as described Health Concerns: Cellulitis Kidney injury Plan of Treatment: Antibiotics wound care Assessment: as above
[2024-08-24 12:28] VITALS: BP 148/67; PULSE 80; RESP 20; TEMP 36.2; O2SAT 93
[2024-08-24] MEDS: carvediloL 25 MG TABLET PO (12:29)
== END 2024-08-24 13:34 | disposition skilled nursing facility (03) | DRG 872 ==
LOC: HO.ED 14:07 → HO.EDOVER 15:31 → HO.ICU 19:41 → HO.IMC 08-20 15:28
PROVIDERS: Internal Medicine Critical Care Medicine; Nurse Practitioner Family; Admitting Provider Hospitalist; Emergency Provider Emergency Medicine Emergency Medical Services; PCP Internal Medicine; Visit Provider Student in an Organized Health Care Education/Training Program
DX: A41.9 Sepsis, unspecified organism (principal); L03.116 Cellulitis of left lower limb; L03.115 Cellulitis of right lower limb; Z68.42 Body mass index [BMI] 45.0-49.9, adult; I50.32 Chronic diastolic (congestive) heart failure; N17.9 Acute kidney failure, unspecified; L97.821 Non-pressure chronic ulcer of other part of left lower leg limited to breakdown of skin; L97.811 Non-pressure chronic ulcer of other part of right lower leg limited to breakdown of skin; B36.9 Superficial mycosis, unspecified; I95.9 Hypotension, unspecified; E86.1 Hypovolemia; E86.0 Dehydration; R65.20 Severe sepsis without septic shock; E66.01 Morbid (severe) obesity due to excess calories; N18.31 Chronic kidney disease, stage 3a; Z87.891 Personal history of nicotine dependence; Z79.82 Long term (current) use of aspirin; Z79.890 Hormone replacement therapy; Z79.899 Other long term (current) drug therapy
CPT/HCPCS: 36415; 71045; 76775; 80048; 80053; 80202; 81001; 82040; 82570; 82947; 83605; 83735; 84100; 84156; 84165; 84443; 85025; 87040; 93005; 93308; 93970; 97162; 99285; C1758; J0613; J1450; J1644; J1650; J1940; J2270; J2543; J3370; J3371; J3475; J7120; P9047

== ENCOUNTER → 2024-08-18 09:39 | Outpatient (BNV) | payer MEDICARE, SELFPAY | PROVIDERS: Emergency Provider Emergency Medicine Emergency Medical Services; PCP Internal Medicine; Visit Provider Radiology Diagnostic Radiology | DX: R22.41 Localized swelling, mass and lump, right lower limb (principal); R22.42 Localized swelling, mass and lump, left lower limb | CPT/HCPCS: 93970 ==

== ENCOUNTER → 2024-08-18 10:57 | Outpatient (BNV) | payer MEDICARE, SELFPAY | PROVIDERS: Emergency Provider Emergency Medicine Emergency Medical Services; PCP Internal Medicine; Visit Provider Nurse Practitioner Family | DX: N17.9 Acute kidney failure, unspecified (principal); N18.31 Chronic kidney disease, stage 3a; E66.01 Morbid (severe) obesity due to excess calories; Z68.42 Body mass index [BMI] 45.0-49.9, adult; I50.32 Chronic diastolic (congestive) heart failure; R60.0 Localized edema; R53.1 Weakness | CPT/HCPCS: 99222; 99232 ==

== ENCOUNTER 2024-08-18 15:26 | Outpatient (BNV) | payer MEDICARE, SELFPAY | END 2024-08-18 21:53 | PROVIDERS: Admitting Provider Hospitalist; Emergency Provider Emergency Medicine Emergency Medical Services; PCP Internal Medicine; Visit Provider Internal Medicine | DX: R94.31 Abnormal electrocardiogram [ECG] [EKG] (principal) | CPT/HCPCS: 93010 ==

== ENCOUNTER 2024-08-18 15:26 | Outpatient (BNV) | payer MEDICARE, SELFPAY | END 2024-08-20 07:00 | PROVIDERS: Admitting Provider Hospitalist; Emergency Provider Emergency Medicine Emergency Medical Services; PCP Internal Medicine; Visit Provider Internal Medicine | DX: I31.39 Other pericardial effusion (noninflammatory) (principal); I42.8 Other cardiomyopathies | CPT/HCPCS: 93308 ==

== ENCOUNTER → 2024-08-18 15:26 | Outpatient (BNV) | payer MEDICARE, SELFPAY | PROVIDERS: Admitting Provider Hospitalist; Emergency Provider Emergency Medicine Emergency Medical Services; PCP Internal Medicine; Visit Provider Internal Medicine Critical Care Medicine | DX: A41.9 Sepsis, unspecified organism (principal); R65.20 Severe sepsis without septic shock; L03.90 Cellulitis, unspecified; N18.9 Chronic kidney disease, unspecified | CPT/HCPCS: 99291 ==

== ENCOUNTER → 2024-08-18 15:26 | Outpatient (BNV) | payer MEDICARE, SELFPAY | PROVIDERS: Admitting Provider Hospitalist; Emergency Provider Emergency Medicine Emergency Medical Services; PCP Internal Medicine; Visit Provider Hospitalist | DX: A41.9 Sepsis, unspecified organism (principal); R65.20 Severe sepsis without septic shock; L03.90 Cellulitis, unspecified; N17.9 Acute kidney failure, unspecified | CPT/HCPCS: 99223; 99232; 99239 ==

== ENCOUNTER 2024-12-06 09:58 | Outpatient (AMB) | payer MEDICARE, SELFPAY ==
[2024-12-06 10:16] VITALS: BP 130/58; PULSE 74; BMI 45.2
--- NOTE | 2024-12-06 10:16 | A.OFFVIS_ITS ---
Vital Signs 12/06/24 10:16 Height 5 ft 7 in Weight 288 lb 5.834 oz BMI 45.2 BP 130/58 L Blood Pressure Location Lt brachial Position Sitting Pulse 74 Pulse Source Pulse Oximeter Intake Visit Reasons: 4m follow up Field Research Assistant Required: No Accompanied by: Spouse Allergies No Known Allergies Allergy (Verified 08/18/24 08:25) Medication List - Last Reconciled 12/06/24 by Baltazar Rogers MD aspirin (Adult Low Dose Aspirin) 81 mg PO DAILY carvedilol 25 mg PO BID furosemide 20 mg PO DAILY levothyroxine 100 mcg PO DAILY@0630 losartan 50 mg PO DAILY magnesium oxide 400 mg PO DAILY multivitamin 1 tab PO DAILY nifedipine ER 30 mg PO DAILY omega 0-jla-rkl-fish oil 1,000 (120-180) mg (Fish Oil) 1 cap PO DAILY simvastatin 20 mg PO DAILY HPI Comments Details: Carl returns for follow-up. Recently seen in consultation after an abnormal echocardiogram. On review of records, it seems that he has seen Dr. Burk long time ago but has not seen anybody else recently. He was on long-term amiodarone for unclear reasons and we stopped that recently. An echocardiogram from 2003 shows an LVEF of 10-15%, but subsequent echocardiogram had shown improvement. Around that time, it seems he also had congestive heart failure. After the last clinic visit, it seems that he was actually hospitalized for difficulty walking, chronic weeping leg wounds and a fall. He was treated for cellulitis/sepsis/SANJEEV. After that, he states he actually feeling so much better. He does not have any active symptoms at this time. No angina or shortness of breath. Leg sounding also seems better. Morbidly obese. Hypertensive on medications. [facility] Medical History Chronic ulcer of right leg, limited to breakdown of skin Ulcer of left lower extremity, limited to breakdown of skin Peripheral edema Cardiorenal syndrome with renal failure Weakness Lower extremity edema Chronic kidney disease Chronic diastolic (congestive) heart failure Morbid obesity Essential hypertension Family History Father Parkinson disease Mother HTN (hypertension) Asthma Social History Household Members: Spouse Housing: House Do you presently have visiting nurse or other home services: No Alcohol intake: current Alcohol intake frequency: holidays/special occasions only Patient Tobacco Use Status: Former Tobacco user Advance Directives Date on File: 08/18/24 service: No Review of Systems Const Denies chills, Denies fatigue, Denies fever(s), Denies weight gain and Denies weight loss ENT Denies dizziness Card Denies chest pain, Denies leg edema, Denies lightheadedness, Denies palpitations, Denies dyspnea on exertion, Denies orthopnea and Denies other Resp Denies cough and Denies dyspnea on exertion GI Denies hematochezia and Denies change in stool character Musc Denies abnormal gait, Denies muscle weakness, Denies numbness, Denies radiating pain into limb and Denies tingling Neuro Denies abnormal gait, Denies dizziness, Denies numbness and Denies tingling Endo Denies fatigue and Denies palpitations Physical Exam Vital Signs: Last Vital Signs Pulse 74 12/06/24 10:16 BP 130/58 L 12/06/24 10:16 BMI result Body Mass Index 45.2 Const General: comfortable and no acute distress Orientation/consciousness: patient oriented x3 HEENT Other: Unremarkable Head: Yes normal to inspection Neck Neck: Yes normal visual inspection Chest Chest palpation & inspection: normal inspection of the chest Resp Auscultation: clear to auscultation bilaterally Cardio Palpation: normal PMI Heart sounds: S1 normal heart sound present, S2 normal heart sound present, no gallops, no murmurs and no rubs GI Palpation (GI): Soft to palpation Back/Spine/Pelvis Other: unremarkable Skin General skin exam: no rashes or lesions noted Neuro General: patient oriented x3 Extrem Other: 1+ edema General: Yes normal to inspection Psych Mental Status: mental status grossly normal Assessment & Plan Assessment & Plan (1) Chronic diastolic (congestive) heart failure: Code(s): I50.32 - Chronic diastolic (congestive) heart failure Category: Medical (2) Morbid obesity: Code(s): E66.01 - Morbid (severe) obesity due to excess calories Category: Medical (3) Essential hypertension: Code(s): I10 - Essential (primary) hypertension Category: Medical (4) Chronic kidney disease: Code(s): N18.9 - Chronic kidney disease, unspecified Category: Medical Qualifiers: Chronic kidney disease stage: stage 3 (moderate) Chronic kidney disease stage 3 subtype: stage 3a (GFR 45-59) Qualified Code(s): N18.31 - Chronic kidney disease, stage 3a Plan Available data reviewed. Echocardiogram from 2003 showed LVEF 10-15%. In the most recent study, LVEF is 48% with severe diastolic dysfunction. For ischemic workup, he underwent myocardial perfusion imaging study around the time of diagnosis of the cardiomyopathy in 2003. That showed no ischemic findings. Overall, morbid obesity, chronic heart failure with recovered ejection fraction but currently with advanced diastolic dysfunction, hypertension, chronic kidney disease. Clinically, no overt volume overload but difficult to assess because of his body habitus. He remains on regimen including carvedilol, losartan, furosemide. No changes with that. May check labs. Possible candidate for Farxiga or Jardiance in the future. Orders: Orders Basic Metabolic Panel Today I50.9 - Heart failure, unspecified B Type Natriuretic Peptide Today I50.9 - Heart failure, unspecified Coding Level of Care Code Est Pt Level 4 (53673) Complex EM visit Add On G2211 Diagnoses Chronic diastolic (congestive) heart failure I50.32 Morbid obesity E66.01 Essential hypertension I10 Stage 3a chronic kidney disease N18.31 Chronic kidney disease stage: stage 3 (moderate) Chronic kidney disease stage 3 subtype: stage 3a (GFR 45-59)
--- OUTSIDE RECORDS SUMMARY | 2024-12-06 11:03 | XMS_ITS | Continuity of Care Document ---
Author Name [facility] Organization [facility] Care Team Providers Care Turret Lathe Set Up Operator Name Role Phone [facility] Unavailable Unavailable Problems Combined list of problems [...] MOUTH DAILY ORAL ACTIVE GRACE AN [facility] ASPIRIN 81MG TAB,EC TAKE TWO TABLETS BY MOUTH DAILY ORAL ACTIVE GRACE AN 2012 [facility] CARVEDILOL 25MG TAB TAKE ONE TABLET BY MOUTH TWICE DAILY ORAL ACTIVE GRACE AN 2012 [facility] LEVOTHYROXI NE NA 88MCG TAB (SYNTHROID) TAKE ONE TABLET BY MOUTH EVERY MORNING 30 MINUTES BEFORE BREAKFAS T ORAL ACTIVE GRACE AN 2012 [facility] OLMESARTAN MEDOXOMIL 20MG TAB TAKE ONE TABLET BY MOUTH DAILY ORAL ACTIVE GRACE AN 2012 [facility] OTHER CAP/TAB [place] L XL 30MG oral DAILY ACTIVE GRACE AN 2012 [facility] SIMVASTATIN 40MG TAB TAKE ONE-HALF TABLET BY MOUTH AT BEDTIME ORAL ACTIVE GRACE AN 2012 [facility] Allergies, Adverse Reactions, Alerts Combined list of allergies from Department of Defense and Veterans Affairs facilities. It does not include entries that were removed or entered in error. Substance Category Reaction Severity Reaction type Status Date Reported Comments Source ASPARTAME (SWEETENER ) Propensity to adverse reactions to substance (finding) Skin irritation active 3 [facility] Immunizations Combined list of available immunizations from the Department of Defense and Veterans Affairs facilities. Immunization Series Date Given Administered By Site Reaction Lot Number CVX Code Drug Social Service Director Status Comments Source COVID-19 (NICK), VECTOR-NR, [id number], PF, 0.5 ML 1 2020 212 complet ed JSN; [id number]; 1 [facility] Social History Combined list of available smoking, tobacco, and other social history from Department of Defense and Veterans Affairs facilities. Social History Type Response Date Comment Sour e Tobacco smoking status NHIS QUIT TOBACCO USE > 7 YEARS AGO 05/18/2013 [facility]
--- OUTSIDE RECORDS SUMMARY | 2024-12-06 11:03 | XMS_ITS | Clinical Summary ---
Author Organization [facility] Facility Address [address] [address] Care Team Providers Care Clinical Radiologist Name Role Phone Ricco Salazar MD Primary Care Provider [phone] Allergies No known active allergies Medications losartan (COZAAR) 50 MG tablet TAKE 1 TABLET BY MOUTH EVERY DAY 90 tablet 6 03/15/2021 Active simvastatin (ZOCOR) 20 MG tablet Take 20 mg by mouth 1 (one) time each day 05/03/2021 Active NIFEdipine XL (PROCARDIA XL) 30 MG 24 hr tablet Take 30 mg by mouth 1 (one) time each day 06/13/2021 Active levothyroxine (SYNTHROID, LEVOTHROID) 150 MCG tablet Take 1 tablet by mouth 1 (one) time each day Active carvedilol (COREG) 25 MG tablet Take 25 mg by mouth 04/09/2021 Active aspirin (ST FRANCHESCA) 81 MG EC tablet 2 tablets 1 (one) time each day Active amiodarone (PACERONE) 200 MG tablet Take 200 mg by mouth 1 (one) time each day 04/27/2021 Active Active Problems Problem Noted Date Diagnosed Date Stage 3a chronic kidney disease 06/25/2021 Essential hypertension 06/25/2021 Chronic kidney disease, stage 2 (mild) Hypertensive chronic kidney disease Family History Medical History Relation Comments Dementia Mother Hypertension Mother Relation Status Comments Father Unknown Mother Unknown Social History Tobacco Use Types Packs/Day Years Used Date Smoking Tobacco: Former Cigarettes Q uit: 09/22/1979 Smokeless Tobacco: Never Tobacco Cessation:Counseling Given: No Sex and Gender Information Value Date Recorded Sex Assigned at Not on file Legal Sex Male 4:41 PM EST Gender Identity Not on file Sexual Orientation Not on file Last Filed Vital Signs Vital Sign Reading Time Taken Comments Blood Pressure 130/70 07/03/2023 1:44 PM EDT Pulse 96 07/03/2023 1:44 PM EDT Temperature - - Respiratory Rate - - Oxygen Saturation 98% 09/02/2022 4:11 PM EST Inhaled Oxygen Concentration - - Weight 125 kg (275 lb) 07/03/2023 1:44 PM EDT Height 172.7 cm (5' 8 ) 06/25/2021 1:05 PM EDT Body Mass Index 41.81 06/25/2021 1:05 PM EDT Plan of Treatment Health Maintenance Due Date Last Done Comments Pneumococcal Vaccine: 65+ Ye ars (2 of 2 - PCV) 01/10/2015 01/10/2014 Influenza Vaccine (#1) 2024 Hepatitis B Vaccine Aged Out No longe r eligible based on patient's age to complete this topic Insurance [facility] Care Teams Clinical Radiologist Relationship Specialty Start Date End Date Ricco Salazar MD [id number] CARROL STEELE PCP - General 10/02/20
== END 2024-12-06 10:46 | disposition home or self-care (01) ==
LOC: HO.HCS 09:58
PROVIDERS: PCP Internal Medicine; Visit Provider Internal Medicine
DX: I50.32 Chronic diastolic (congestive) heart failure (principal); E66.01 Morbid (severe) obesity due to excess calories; I10 Essential (primary) hypertension; N18.31 Chronic kidney disease, stage 3a
CPT/HCPCS: 99214; G2211

== ENCOUNTER → 2024-12-06 09:58 | Outpatient (BNVA) | payer MEDICARE, SELFPAY | PROVIDERS: PCP Internal Medicine; Visit Provider Internal Medicine | DX: I13.0 Hypertensive heart and chronic kidney disease with heart failure and stage 1 through stage 4 chronic kidney disease, or unspecified chronic kidney disease (principal); N18.31 Chronic kidney disease, stage 3a; I50.32 Chronic diastolic (congestive) heart failure; E66.01 Morbid (severe) obesity due to excess calories; Z68.42 Body mass index [BMI] 45.0-49.9, adult | CPT/HCPCS: 99212 ==

== ENCOUNTER 2025-03-09 11:04 | Outpatient (AMB) | payer MEDICARE, SELFPAY ==
--- OUTSIDE RECORDS SUMMARY | 2020-12-05 09:15 | XMS_ITS | Continuity of Care Document ---
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 It does not include entries that were removed or entered in error. Problem Status Onset Date Problem Type Date of Resolution Comments Source HYPERLIPIDEMIA Active Condition [facility] HYPERTENSION Active Condition [facility] HYPOTHYROIDISM Active Condition [facility] OBESITY Active Condition [facility] OLD MD Active Condition [facility] Medications Combined list of outpatient medications from Department of Defense and Veterans Affairs facilities.Medications provided include 1) outpatient medications from the last 15 months, and 2) patient-reported medications. Medication Details Route Status Patient Instructions Prescription Expires Prescription Number Last Dispense Date Ordering Provider Order Date Order Qty Source AMIODARONE HCL (PACERONE) 200MG TAB TAKE ONE TABLET BY MOUTH DAILY ORAL ACTIVE GRACE AN [facility] ASPIRIN 81MG TAB,EC TAKE TWO TABLETS BY MOUTH DAILY ORAL ACTIVE [facility] AN [facility] CARVEDILOL 25MG TAB TAKE ONE TABLET BY MOUTH TWICE DAILY ORAL ACTIVE GRACE AN 2012 [facility] LEVOTHYROXI NE NA 88MCG TAB (SYNTHROID) TAKE ONE TABLET BY MOUTH EVERY MORNING 30 MINUTES BEFORE BREAKFAS T ORAL ACTIVE GRACE AN [facility] OLMESARTAN MEDOXOMIL 20MG TAB TAKE ONE TABLET BY MOUTH DAILY ORAL ACTIVE GRACE AN 2012 [facility] OTHER CAP/TAB [place] L XL 30MG oral DAILY ACTIVE GRACE AN 2012 [facility] SIMVASTATIN 40MG TAB TAKE ONE-HALF TABLET BY MOUTH AT BEDTIME ORAL ACTIVE GRACE AN 2012 [facility] Allergies, Adverse Reactions, Alerts Combined list of allergies from Department of Defense and Veterans Affairs facilities. It does not include entries that were removed or entered in error. Substance Category Reaction Severity Reaction type Status Date Reported Comments Source ASPARTAME (SWEETENER ) Propensity to adverse reactions to substance (finding) Skin irritation active 3 [facility] Immunizations Combined list of available immunizations from the Department of Defense and Veterans Affairs facilities. 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 Social History Type Response Date Comment Sour e Tobacco smoking status NHIS QUIT TOBACCO USE > 7 YEARS AGO 05/18/2013 [facility]
--- NOTE | 2025-03-09 11:16 | MHC.PC.OV ---
Vital Signs 03/09/25 11:23 Height 5 ft 7 in Weight 128.82 kg BMI 44.5 BP 130/50 L Respiration 18 Pulse 82 Pulse Source Pulse Oximeter Temp 98.7 F Temp Source Temporal Artery Scan Pulse Oximetry (%) 97 Oxygen Delivery Method Room Air Intake Visit Reasons: Annual Rn Clinical Review Required: No Accompanied by: Self / Same As Patient Allergies No Known Allergies Allergy (Verified 03/09/25 11:16) HPI HPI Comments History of Present Illness Details 74-year-old male with history of chronic diastolic heart failure, chronic venous stasis dermatitis, ischemic cardiomyopathy, hypothyroidism, CKD, BPH, and morbid obesity with BMI greater than 44 presents to the office today for annual physical exam, management of chronic conditions, and to establish care. The patient lives at home with his and is happily retired. He feels safe at home. He does have poor follow-up with optometry and dentist. Does wear sun protection and wears a seatbelt. He is a former smoker who quit years ago. Only occasional alcohol use. No illicit drug use. Hypertension-blood pressure in the office 130/50. Compliant with nifedipine 30 mg ER carvedilol 25 mg twice daily and Lasix CHF/ischemic cardiomyopathy-following with Cardiology. On furosemide and carvedilol. Does have chronic edema that has not worsened. No acute weight gain. No dyspnea on exertion or orthopnea. Does elevate his legs at night. No compression stockings Hypothyroidism-compliant with levothyroxine CKD stage 3-last GFR 44, creatinine 1.49 BPH-no LUTS, not on medication Class 3 obesity-BMI 44.5. Has been working on weight loss and has lost 30 lb through diet and exercise. Concerns: none Health maintenance: No longer undergoing colonoscopy Lung cancer screening not indicated as he quit smoking >30 years ago ROS: General: No fevers, malaise, unintentional weight loss HEENT: No blurred vision, diplopia. No sore throat, nasal congestion, rhinorrhea, sinus pain, ear pain Neck - no adenopathy Cardiovascular: No chest pain, palpitations, or leg edema Respiratory: No shortness of breath, wheezing, cough GI: No abdominal pain, nausea, vomiting, diarrhea, constipation, melena, hematochezia : No dysuria, hematuria, increased urinary frequency, decreased urinary output MSK: No myalgia, back pain, arthralgias Neuro: No headaches, weakness, paresthesias Psych: no depression/anxiery. No AH/VH. No SI/HI Skin: No rashes or lesions EXAM: Constitutional - Awake and Alert, No apparent distress, morbidly obese Eyes - PERRLA, EOMI. Anicteric Nose- septum midline, nares clear, no sinus tenderness Mouth/throat- mucosa moist, tongue and uvula midline, no erythema/edema or tonsillar adenopathy. Neck-trachea midline, thyroid symmetric without palpable nodules, no adenopathy Cardiovascular - S1S2, RRR, 2+ ble edema Respiratory - Normal lung expansion, Normal respiratory effort, No respiratory distress, CTA bilaterally Gastrointestinal - NT / ND; +BS; No rebound or guarding - No CVA tenderness Extremities - no calf tenderness bilaterally, no swelling Musculoskeletal - Normal inspection, normal ROM Skin - Warm/Dry. Venous stasis changes bilaterally Neurological - Alert & oriented x3, CN II-XII in tact, 5/5 strength BUE and BLE Psychological - Appropriate affect [facility] Medical History (Updated 03/09/25 @ 13:01 by CLEM Dutton) Retinal emboli Left carotid stenosis BPH (benign prostatic hyperplasia) Hypothyroidism Ischemic cardiomyopathy Coronary artery disease Chronic kidney disease Morbid obesity Chronic diastolic (congestive) heart failure Chronic ulcer of right leg, limited to breakdown of skin Ulcer of left lower extremity, limited to breakdown of skin Peripheral edema Cardiorenal syndrome with renal failure Weakness Lower extremity edema Essential hypertension Surgical History (Updated 03/09/25 @ 13:01 by CLEM Dutton) S/P carotid endarterectomy Family History Father Parkinson disease Mother HTN (hypertension) Asthma Social History Household Members: Spouse Housing: House Do you presently have visiting nurse or other home services: No Alcohol intake: current Alcohol intake frequency: holidays/special occasions only Patient Tobacco Use Status: Former Tobacco user Advance Directives Date on File: 08/18/24 service: No Questionnaire PHQ-9 Over the last 2 weeks, how often have you been bothered by any of the following problems? 1. Little interest or pleasure in doing things: not at all 2. Feeling down, depressed, or hopeless: not at all 3. Trouble falling or staying asleep, or sleeping too much: not at all 4. Feeling tired or having little energy: several days 5. Poor appetite or overeating: not at all 6. Feeling bad about yourself - or that you are a failure or have let yourself or your family down: not at all 7. Trouble concentrating on things, such as reading the newspaper or watching television: not at all 8. Moving or speaking so slowly that other people could have noticed. Or the opposite - being so fidgety or restless that you have been moving around a lot more than usual: not at all 9. Thoughts that you would be better off or of hurting yourself in some way: not at all Total score: 1 Source: Developed by Drs. Carl Arora, Arlen Cortez, Duglas Joe and colleagues, with an educational brigitte from [email or web address]. Thrive Questionnaire Date Thrive assessed: 03/09/25 I am a: Patient What is your living situation today?: I have a steady place to live Within the past 12 months, did the food you bought not last and you didn't have the money to get more?: Never true Within the past 12 months, did you worry whether your food would run out before you got money to buy more?: Never true Do you have trouble paying for medicines?: No Do you have trouble getting transportation to medical appointments?: No Do you have trouble paying your heating and electricity bill?: No Do you have trouble taking care of your child, family member or friend?: No Do you have trouble with day-to-day activities such as bathing, preparing meals, shopping, managing finances, etc.?: No Are you currently unemployed and looking for a job?: No Are you interested in more education?: No Please select the resources that you would like help with: None THRIVE Score: 0 CIARA-7 AMB Questionnaire CIARA-7 Date CIARA - 7 assessed: 03/09/25 Feeling nervous, anxious, or on edge: 0 = Not at all Not being able to stop or control worryin = Not at all Worrying too much about different things: 0 = Not at all Trouble relaxin = Not at all Being so restless that it is hard to sit still: 0 = Not at all Becoming easily annoyed or irritable: 0 = Not at all Feeling afraid as if something awful might happen: 0 = Not at all Total CIARA-7 score (0-4 normal; 5-9 mild; 10-14 moderate; 15-21 severe): 0 Source: Developed by Drs. Carl Arora, Arlen Cortez, Duglas Joe and colleagues, with an educational brigitte from [email or web address]. Physical exam (Primary Care) Vital Signs: Last Vital Signs Temp 98.7 F 03/09/25 11:23 Pulse 82 03/09/25 11:23 Resp 18 03/09/25 11:23 BP 130/50 L 03/09/25 11:23 Pulse Ox 97 03/09/25 11:23 Oxygen Delivery Method Room Air 03/09/25 11:23 BMI result Body Mass Index 44.5 Tobacco/Smoking Status: Tobacco use Status Patient Tobacco Use Status Former Tobacco user 03/09/25 11:16 PHQ-9: PHQ-9 Score PHQ-9: Total score 1 03/09/25 11:38 Thrive Assessment: Date of Thrive Assessment Date Thrive assessed 03/09/25 03/09/25 11:26 Coding Level of Care Code New Pt Level 4 (64858) New Pt Prev Care >65yr (87337) Diagnoses Encounter for routine history and physical examination Z00.00 Morbid obesity E66.01 Essential hypertension I10 Ischemic cardiomyopathy I25.5 Hypothyroidism E03.9 Assessment & Plan Assessment & Plan (1) Encounter for routine history and physical examination: Code(s): Z00.00 - Encounter for general adult medical examination without abnormal findings Plan: Routine annual exam in 74-year-old male. Plan as below (2) Morbid obesity: Code(s): E66.01 - Morbid (severe) obesity due to excess calories Category: Medical Plan: Class 3 obesity with BMI greater than 44. Commended on recent 30 lb weight loss. Encouraged to continue with weight loss efforts with calorie deficit and increased consumption of protein, fruits, vegetables and minimization of intake of refined sugars, simple carbohydrates, and highly processed foods. Recommend increased exercise. Will check hemoglobin A1c (3) Essential hypertension: Code(s): I10 - Essential (primary) hypertension Category: Medical Plan: Controlled. Continue carvedilol 25 mg twice daily and nifedipine 30 mg daily as well as Lasix. Will evaluate renal function electrolyte levels (4) Ischemic cardiomyopathy: Code(s): I25.5 - Ischemic cardiomyopathy Category: Medical Plan: Stable. Continue Coreg, Lasix. Follow-up with cardiology as scheduled. Check lipid panel, continue simvastatin (5) Hypothyroidism: Code(s): E03.9 - Hypothyroidism, unspecified Category: Medical Plan: TSH with reflex free T4 ordered. Continue levothyroxine 100 mcg daily, dose to be adjusted as needed pending results. Orders: Orders Hemoglobin A1c Today Z00.00 - Encounter for general adult medical examination without abnormal findings Lipid Panel Today Z00.00 - Encounter for general adult medical examination without abnormal findings TSH reflex Free T4 Today E03.9 - Hypothyroidism, unspecified Basic Metabolic Panel Today Z00.00 - Encounter for general adult medical examination without abnormal findings Liver Panel Today Z00.00 - Encounter for general adult medical examination without abnormal findings
[2025-03-09 11:23] VITALS: BP 130/50; PULSE 82; RESP 18; TEMP 37.1; O2SAT 97; BMI 44.5
== END 2025-03-09 11:58 | disposition home or self-care (01) ==
LOC: HO.HMCHD 11:04
PROVIDERS: PCP Internal Medicine; Visit Provider Physician Assistant
DX: Z00.00 Encounter for general adult medical examination without abnormal findings (principal); E03.9 Hypothyroidism, unspecified; E66.01 Morbid (severe) obesity due to excess calories; Z68.41 Body mass index [BMI] 40.0-44.9, adult; I10 Essential (primary) hypertension; I25.5 Ischemic cardiomyopathy

== ENCOUNTER → 2025-03-09 11:04 | Outpatient (BNVA) | payer MEDICARE, SELFPAY | PROVIDERS: PCP Internal Medicine; Visit Provider Physician Assistant | DX: Z00.00 Encounter for general adult medical examination without abnormal findings (principal); E66.01 Morbid (severe) obesity due to excess calories; Z68.41 Body mass index [BMI] 40.0-44.9, adult; I13.0 Hypertensive heart and chronic kidney disease with heart failure and stage 1 through stage 4 chronic kidney disease, or unspecified chronic kidney disease; N18.30 Chronic kidney disease, stage 3 unspecified; I50.32 Chronic diastolic (congestive) heart failure; I25.5 Ischemic cardiomyopathy; E03.9 Hypothyroidism, unspecified; Z79.899 Other long term (current) drug therapy; Z13.30 Encounter for screening examination for mental health and behavioral disorders, unspecified | CPT/HCPCS: 96127; 99202; 99387 ==

== ENCOUNTER 2025-06-09 10:15 | Outpatient (REF) | payer MEDICARE, SELFPAY ==
--- OUTSIDE RECORDS SUMMARY | 2025-06-09 12:15 | XMS_ITS | Clinical Summary ---
Author Organization [facility] Address [address] [address] Phone Care Team Providers Care Interactive Digital Media Specialist Name Role Phone Ricco Salazar MD Primary Care Provider Allergies No known active allergies Medications MULTIVITAMIN ORAL Take 1 tablet by mouth daily. 4 Active NIFEdipine (PROCARDIA XL) 30 MG 24 hr tablet Take 30 mg by mouth daily. 4 Active aspirin 81 MG EC tablet Take 81 mg by mouth daily. 4 Active furosemide (LASIX) 20 MG tablet Take 20 mg by mouth daily. 4 Active acetaminophen (TYLENOL) 500 MG tablet Take 1,000 mg by mouth every 8 (eight) hours as needed for pain (specific location in comments). For wound care 3 times a week 4 Active magnesium oxide 400 mg magnesium Tab Take 400 mg by mouth daily. 4 Active levothyroxine (SYNTHROID, LEVOTHROID) 100 MCG tablet Take 100 mcg by mouth every morning. 4 Active lactobacillus rhamnosus, GG, (CULTURELLE) 10 billion cell capsule Take 1 capsule by mouth 2 (two) times a day. 4 Active omega-3 fatty acids/fish oil (OMEGA 3 FISH OIL ORAL) Take 1,000 mg by mouth daily. 4 Active CARVEDILOL ORAL Take 25 mg by mouth 2 (two) times a day. 4 Active simvastatin (ZOCOR) 20 MG tablet Take 20 mg by mouth nightly at bedtime. 4 Active nystatin cream Apply 1 Application topically as needed for dry skin (Groin and abdomilal fold rash). 4 Active ondansetron (ZOFRAN) 4 MG tablet Take 4 mg by mouth every 8 (eight) hours as needed for nausea. 4 Active silver sulfADIAZINE (SILVADENE) 1 % cream Apply 1 Application topically 3 (three) times a week. To bilateral lower leg wound with wound care 4 Active polyethylene glycol (MIRALAX) 17 gram packet Take 17 g by mouth daily as needed for moderate constipation. 4 Active Social History Tobacco Use Types Packs/Day Years Used Date Smoking Tobacco: Never Assessed Home Health Assessment: Transportation Answer Date Recorded Lack of Transportation (Medical) No 10/22/2024 Lack of Transportation (Non-Medical) No 10/22/2024 Patient Unable or Declines to Respond No 10/22/2024 Education Answer Date Recorded Are you interested in more education? Not on kallie e 09/06/2024 Are you concerned about learning? Not on file 09/06/2024 No 09/06/2024 No 09/06/2024 Digital Access Answer Date Recorded No 09/06/2024 No 09/06/2024 Reliable internet access at home? Not on file 09/06/2024 Device with a working camera? Not on file Sex and Gender Information Value Date Recorded Sex Assigned at Not on file Legal Sex Male 1:13 PM EST Gender Identity Not on file Sexual Orientation Not on file Last Filed Vital Signs Vital Sign Reading Time Taken Comments Blood Pressure 140/70 10/22/2024 10:23 AM EST Pulse 66 10/22/2024 10:23 AM EST Temperature 36.7 C (98 F) 10/22/2024 10:23 AM EST Respiratory Rate 16 10/19/2024 12:2 5 PM EST Oxygen Saturation 99% 10/22/2024 10: 23 AM EST Inhaled Oxygen Concentration - - Weight 126.2 kg (278 lb 3.2 oz) 025 11:06 AM EST Height 71 cm (2' 3.95 ) 09/10/2024 12:0 5 PM EST Body Mass Index 250.38 09/10/2024 12:05 PM EST Plan of Treatment Not on file Medical Devices Not on file [place] [address] [address] HMO REPL[address] [place] [address] [address] [place] [place] [address] [address] [place] [place] [address] MEDICARE HMO REPLACEMENT MEDICARE HMO REPLACEMENT [facility] [place] MEDICARE HMO REPLACEMENT Advance Directives For more information, please contact: [phone] (9AM - 5PM [facility], Friday-Friday) Documents on File Type Date Recorded Patient Die Repairer Stamping Expl anation Healthcare Proxy 09/13/2024 MOLST 09/13/2024 Care Teams Interactive Digital Media Specialist Relationship Specialty Start Date End Date Ricco Salazar MD [address] [place] [address] [place] [address] PCP - General Internal Medicine 12/16/24 Additional Source Comments The information contained in this document represents components of the legal health record. It is not the complete legal health record.[facility]
--- OUTSIDE RECORDS SUMMARY | 2025-06-09 12:15 | XMS_ITS | Clinical Summary ---
Author Organization [facility] Facility Address [address] [address] Care Team Providers Care Box Stapler Name Role Phone Ricco Salazar MD Primary Care Provider [phone] Allergies No known active allergies Medications losartan [...] Due Date Last Done Comments Pneumococcal Vaccine: 50+ Ye ars (2 of 2 - PCV) 01/10/2015 01/10/2014 Influenza Vaccine (#1) 2025 Pneumococcal Vaccine: Peds ( 0 to 5 Years) and At-Risk Patients (6 to 49 Years) Discontinued 01/10/2014 Hepatitis B Vaccine Aged Out No longe r eligible based on patient's age to complete this topic [place] [address] [facility] Care Teams Box Stapler Relationship Specialty Start Date End Date Ricco Salazar MD [address] [facility] PCP - General 10/02/20
[2025-06-09 13:19] LABS: Hemoglobin A1C 127.9384 umol/L; Total Hemoglobin (HGBA1C) 3224.4365 umol/L
[2025-06-09 13:34] LABS: Alanine Aminotransferase 9 U/L (0-40); Albumin Level 3.9 g/dL (3.5-5.0); Alkaline Phosphatase 72 U/L (39-117); Anion Gap 13 (12-20); Aspartate Amino Transferase 29 U/L (5-37); Blood Urea Nitrogen 20 mg/dL (9-16); Calcium 9.5 mg/dL (8.4-10.2); Carbon Dioxide 28 mmol/L (22-29); Chloride 106 mmol/L (96-108); Cholesterol 107 mg/dL (<200); Estimated Glomerular Filt Rate 47; HDL Cholesterol 26 mg/dL (>40); Potassium 4.4 mmol/L (3.3-5.1); Sodium 143 mmol/L (135-145); Total Protein 7.6 g/dL (6.5-8.0); Triglycerides 89 mg/dL (<150)
== END 2025-06-09 10:16 | disposition home or self-care (01) ==
LOC: HO.HMGCLDS 10:15
PROVIDERS: PCP Physician Assistant; Visit Provider Physician Assistant
DX: Z13.1 Encounter for screening for diabetes mellitus (principal); Z00.00 Encounter for general adult medical examination without abnormal findings; E03.9 Hypothyroidism, unspecified
CPT/HCPCS: 36415; 80048; 80061; 80076; 83036; 84443

== ENCOUNTER 2025-06-13 09:30 | Outpatient (AMB) | payer MEDICARE, SELFPAY ==
[2025-06-13 09:47] VITALS: BP 128/68; PULSE 75; BMI 43.5
--- NOTE | 2025-06-13 09:47 | A.OFFVIS_ITS ---
Vital Signs 06/13/25 09:47 Height 5 ft 7 in Weight 277 lb 12.519 oz BMI 43.5 BP 128/68 Blood Pressure Location Lt brachial Position Sitting Pulse 75 Pulse Source Monitor Intake Visit Reasons: 6mo f/u Allergies No Known Allergies Allergy (Verified 03/09/25 11:16) Medication List - Last Reconciled 06/13/25 by Baltazar Rogers MD aspirin (Adult Low Dose Aspirin) 81 mg PO DAILY carvedilol 25 mg PO BID furosemide 20 mg PO DAILY levothyroxine 100 mcg PO DAILY@0630 magnesium oxide 400 mg PO DAILY multivitamin 1 tab PO DAILY nifedipine ER 30 mg PO DAILY omega 3-ywe-nvo-fish oil 1,000 (120-180) mg (Fish Oil) 1 cap PO DAILY simvastatin 20 mg PO DAILY 90 days HPI Comments Details: Carl returns for follow-up. Originally seen in consultation after an abnormal echocardiogram. On review of records, it seems that he has seen cardiology long time ago but has not seen anybody else recently. He was on long-term amiodarone for unclear reasons and we stopped that. An echocardiogram from 2003 shows an LVEF of 10-15%, but subsequent echocardiogram had shown improvement. Around that time, it seems he also had congestive heart failure. More recently, he states he actually feels so much better. He does not have any active symptoms at this time. No angina or shortness of breath. Leg swelling mostly unchanged. Morbidly obese. Hypertensive on medications. [facility] Medical History (Updated 03/09/25 @ 13:01 by CLEM Dutton) Retinal emboli Left carotid stenosis BPH (benign prostatic hyperplasia) Hypothyroidism Ischemic cardiomyopathy Coronary artery disease Chronic kidney disease Morbid obesity Chronic diastolic (congestive) heart failure Chronic ulcer of right leg, limited to breakdown of skin Ulcer of left lower extremity, limited to breakdown of skin Peripheral edema Cardiorenal syndrome with renal failure Weakness Lower extremity edema Essential hypertension Surgical History (Updated 03/09/25 @ 13:01 by CLEM Dutton) S/P carotid endarterectomy Family History Father Parkinson disease Mother HTN (hypertension) Asthma Social History Household Members: Spouse Housing: House Do you presently have visiting nurse or other home services: No Alcohol intake: current Alcohol intake frequency: holidays/special occasions only Patient Tobacco Use Status: Former Tobacco user Advance Directives Date on File: 08/18/24 service: No Review of Systems Const Denies weakness ENT Denies dizziness Card Denies chest pain, Denies chest pain with activity, Denies syncope, Denies rapid heart rate, Denies pedal edema, Denies edema, Denies leg edema, Denies lightheadedness, Denies palpitations, Denies dyspnea, Denies dyspnea on exertion and Denies orthopnea Resp Denies cough, Denies dyspnea and Denies dyspnea on exertion GI Denies hematochezia and Denies change in stool character Musc Denies abnormal gait, Denies muscle cramps, Denies muscle weakness, Denies numbness, Denies radiating pain into limb and Denies tingling Neuro Denies abnormal gait, Denies dizziness, Denies syncope, Denies numbness, Denies tingling and Denies weakness Endo Denies palpitations Physical Exam Vital Signs: Last Vital Signs Pulse 75 06/13/25 09:47 BP 128/68 06/13/25 09:47 BMI result Body Mass Index 43.5 Const General: comfortable and no acute distress Orientation/consciousness: patient oriented x3 HEENT Other: Unremarkable Head: Yes normal to inspection Neck Neck: Yes normal visual inspection Chest Chest palpation & inspection: normal inspection of the chest Resp Auscultation: clear to auscultation bilaterally Cardio Palpation: normal PMI Heart sounds: S1 normal heart sound present, S2 normal heart sound present, no gallops, no murmurs and no rubs GI Palpation (GI): Soft to palpation Back/Spine/Pelvis Other: unremarkable Skin General skin exam: no rashes or lesions noted Neuro General: patient oriented x3 Extrem Other: 2+ edema General: Yes normal to inspection Psych Mental Status: mental status grossly normal Office Procedures EKG Details: EKG with sinus rhythm at 75/Min; W[place] prolongation to 248 millisecond; rightward axis; low-voltage QRS complexes; [place]. [id number], Complete Assessment & Plan Assessment & Plan (1) Chronic diastolic (congestive) heart failure: Code(s): I50.32 - Chronic diastolic (congestive) heart failure Category: Medical (2) Morbid obesity: Code(s): E66.01 - Morbid (severe) obesity due to excess calories Category: Medical (3) Essential hypertension: Code(s): I10 - Essential (primary) hypertension Category: Medical (4) Chronic kidney disease: Code(s): N18.9 - Chronic kidney disease, unspecified Category: Medical Qualifiers: Chronic kidney disease stage: stage 3 (moderate) Chronic kidney disease stage 3 subtype: stage 3a (GFR 45-59) Qualified Code(s): N18.31 - Chronic kidney disease, stage 3a Plan Available data reviewed. Echocardiogram from 2003 showed LVEF 10-15%. In the most recent study, LVEF is 48% with severe diastolic dysfunction. For ischemic workup, he underwent myocardial perfusion imaging study around the time of diagnosis of the cardiomyopathy in 2003. That showed no ischemic findings. Overall, morbid obesity, chronic heart failure with recovered ejection fraction but currently with advanced diastolic dysfunction, hypertension, chronic kidney disease. Clinically, no overt volume overload but difficult to assess because of his body habitus. For meds, on carvedilol and Lasix. He was on losartan in the past but not in his list anymore. Could have been stopped because of SANJEEV history. We can add Jardiance to his regimen. Recheck labs in a few weeks' time. Plan discussed and he agrees. Discussion Notes During the visit, I discussed with the patient the introduction of Jardiance as a new medication option for managing his congestive heart failure. We reviewed the potential benefits, including fluid management and reduced hospitalizations, and addressed concerns about insurance coverage and cost. The patient was advised to take the medication for a month, after which we will conduct blood tests to evaluate its effectiveness. Patient was informed and verbally consented to the use of an ambient scribe for clinic note documentation during this visit. Orders: Orders NT Pro B Type Natriuretic Pept 4 Weeks I50.9 - Heart failure, unspecified Medications: New empagliflozin (Jardiance) 10 mg PO DAILY 90 tabs 1RF Patient Instructions: - Take the prescribed medication, Jardiance. - Schedule a follow-up appointment in six months. - Complete blood work after one month of medication use to monitor its effects. - Report any side effects or concerns with the medication to the healthcare provider. Coding Level of Care Code Est Pt Level 4 (30746) Complex EM visit Add On G2211 Diagnoses Chronic diastolic (congestive) heart failure I50.32 Morbid obesity E66.01 Essential hypertension I10 Stage 3a chronic kidney disease N18.31 Chronic kidney disease stage: stage 3 (moderate) Chronic kidney disease stage 3 subtype: stage 3a (GFR 45-59) CPT Codes EKG - CPT: 02918-[id number], Complete ([id number])
--- OUTSIDE RECORDS SUMMARY | 2025-06-13 11:11 | XMS_ITS | Clinical Summary ---
Author Organization [facility] Address [address] [address] Phone Care Team Providers Care Process Consultant Name Role Phone Ricco Salazar MD Primary [...] file Medical Devices Not on file [place] [address] [place] [address] [address] [place] [place] [address] [address] [place] [address] [address] [place] [address] MEDICARE HMO REPLACEMENT MEDICARE HMO REPLACEMENT [facility] [place] MEDICARE HMO REPLACEMENT Advance Directives For more information, please contact: [phone] (9AM - 5PM [facility], Friday-Friday) Documents on File Type Date Recorded 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 It is not the complete legal health record.[facility]
--- OUTSIDE RECORDS SUMMARY | 2025-06-13 11:11 | XMS_ITS | Clinical Summary ---
Author Organization [facility] Facility Address [address] [address] Care Team Providers Care Throw Out Clerk Name Role Phone Ricco Salazar MD Primary Care Provider [phone] Allergies No known active allergies Medications losartan [...] patient's age to complete this topic Insurance [place] [address] [facility] Care Teams Throw Out Clerk Relationship Specialty Start Date End Date Ricco Salazar MD [address] [facility] PCP - General 10/02/20
== END 2025-06-13 10:07 | disposition home or self-care (01) ==
LOC: HO.HCS 09:30
PROVIDERS: PCP Physician Assistant; Visit Provider Internal Medicine
DX: I50.32 Chronic diastolic (congestive) heart failure (principal); E66.01 Morbid (severe) obesity due to excess calories; I10 Essential (primary) hypertension; N18.31 Chronic kidney disease, stage 3a
CPT/HCPCS: 93010; 99214; G2211

== ENCOUNTER → 2025-06-13 09:30 | Outpatient (BNVA) | payer MEDICARE, SELFPAY | PROVIDERS: PCP Physician Assistant; Visit Provider Internal Medicine | DX: I50.32 Chronic diastolic (congestive) heart failure (principal); E66.01 Morbid (severe) obesity due to excess calories; I10 Essential (primary) hypertension; N18.31 Chronic kidney disease, stage 3a | CPT/HCPCS: 93005; 99212 ==